=== PATIENT | male | born 1945 | race Caucasian/White ===

== ENCOUNTER 2016-06-16 08:36 | Inpatient (IN) ==
--- NOTE | 2016-06-16 09:00 | Emergency Department Note ---
Disposition Clinical Impression: PVC (premature ventricular contraction), Dizziness Arrhythmia Qualifiers: Arrhythmia type: ventricular tachycardia Qualified Code(s): I47.2 - Ventricular tachycardia Disposition: Admitted As Inpatient Condition: Fair [facility] Care Provider[facility] - Forms: ED Satisfaction Letter General Adult HPI - General Chief complaint: ED Syncope Stated complaint: arrhythmia, heart palpitations, near syncope Time Seen by Provider: 06/16/16 08:43 Source: patient, family Mode of arrival: ambulatory Limitations: no limitations Nursing Notes Reviewed: Yes Vital Signs Reviewed: Yes - History of Present Illness HPI Narrative: 70-year-old male history of A. fib, AICD, CABG present for evaluation for an arrhythmia. Patient states that he was evaluated at [facility] 2 days ago for similar symptoms and diagnosed with pneumonia. Patient had is pacemaker interrogated yesterday. This morning the patient became concerned because he felt flushed and that his pulse and noted a 10 second positive for a felt his heart rate. Patient denies any chest pain. Dizzy. But no passing out or syncope. No fevers or cough. Does note some dyspnea. No nausea or vomiting. Pain Scale: 0 - Related Data Home Medications Medication Instructions Recorded Confirmed Furosemide [Lasix] 40 mg PO BID #0 01/17/15 06/16/16 Potassium Chloride [K-Tab ER] 20 meq PO BID #0 01/17/15 06/16/16 Simvastatin [Zocor] 80 mg PO HS #0 01/17/15 06/16/16 Albuterol Sulfate [Albuterol 2 puff IH Q6HR PRN 01/18/15 06/16/16 Inhaler] Budesonide/Formoterol 160/4.5 2 puff IH BIDR 01/18/15 06/16/16 [Symbicort] Ipratropium/Albuterol Neb [Duoneb] 3 ml IH Q4H PRN 01/18/15 06/16/16 Spironolactone [Aldactone] 10 mg PO DAILY 01/18/15 06/16/16 Carvedilol [Coreg] 12.5 mg PO BID 06/07/16 06/16/16 Cholecalciferol (D-3) [Vitamin D] 1,000 unit PO BID 06/07/16 06/16/16 Pantoprazole Sodium 40 mg PO BID 06/07/16 06/16/16 Oxygen 2 l .ROUTE AD 06/16/16 06/16/16 Previous Rx's Medication Instructions Recorded Sotalol HCl [Betapace] 120 mg PO BID #60 tablet 10/29/15 Cephalexin [Keflex] 500 mg PO QID #40 capsule 06/14/16 Allergies Allergy/AdvReac Type Severity Reaction Status Date / Time codeine AdvReac Nausea Verified 06/16/16 08:42 All systems ED: reviewed and negative except as stated. Constitutional: Reports: as per HPI. Denies: fever Eyes: Reports: as per HPI ENT ED: Reports: as per HPI Cardiovascular: Reports: as per HPI, palpitations. Denies: chest pain Respiratory: Reports: as per HPI, dyspnea. Denies: cough Gastrointestinal: Reports: as per HPI. Denies: nausea, vomiting Genitourinary: Reports: as per HPI Musculoskeletal: Reports: as per HPI Integumentary: Reports: as per HPI Neurological: Reports: as per HPI Psychiatric: Reports: as per HPI Past Medical History - Past Medical History Medical history: Reports: cancer, cardiomyopathy, CHF, COPD, coronary artery disease, CVA, GERD, GI bleed, hypertension, myocardial infarction, TIA, valvular heart disease, other Surgical history: Reports: angioplasty/stent, coronary bypass (CABG), herniorrhaphy, pacemaker/AICD, other, AICD, pacemaker Psychiatric history: Reports: anxiety - Social History Smoking Status: Former smoker Smokeless Tobacco Status: No Alcohol use: Reports: rarely Drug use: Reports: none Physical Exam - General Limitations: no limitations General appearance: alert, in no apparent distress - Head Head exam: atraumatic, normocephalic, normal inspection - Eye Eye exam: Present: normal appearance, EOMI - ENT ENT exam: normal exam, mucous membranes moist - Neck Neck exam: Present: normal inspection, trachea midline - Chest Chest inspection: Present: normal inspection, symmetric chest wall rise - Respiratory Respiratory exam: Present: normal lung sounds bilaterally. Absent: respiratory distress - Cardiovascular Cardiovascular exam: Present: regular rate, normal rhythm - Abdominal Exam Abdominal exam: Present: soft, Non-Tender - Extremities Exam Extremities exam: Present: normal inspection. Absent: pedal edema - Back Exam Back exam: Present: normal inspection - Neurological Exam Neurological exam: Present: alert, oriented X3 - Skin Skin exam: Present: warm, dry, intact, normal color Course Course Narrative: Patient seen and examined. Chery in no acute distress. Patient's EKG shows stroke unifocal PVCs. Patient will get basic lab work, chest x-ray and discussion with cardiology. - Reevaluation(s) Reevaluation #1: Patient seen and examined. Patient noted that he felt of flushing feeling that spontaneously resolved. Similar to the feeling she has had in the past. Time: 10:46 - Consultations Consultation #1: Spoke with cardiology, who reviewed the recent interrogation. Recommended that since the patient is symptomatic with the with the arrhythmias and having more frequent runs of VT the patient would benefit from inpatient admission, possible echo, possible med adjustment. Time: 10:17 Vital Signs Temperature 97.8 F 06/16/16 08:42 Pulse Rate 74 06/16/16 08:42 Respiratory Rate 16 06/16/16 08:42 Blood Pressure 113/63 06/16/16 08:42 O2 Sat by Pulse Oximetry 99 06/16/16 08:42 Temperature 97.8 F 06/16/16 08:42 Pulse Rate 63 06/16/16 11:00 Respiratory Rate 15 06/16/16 11:00 Blood Pressure 105/60 06/16/16 11:00 O2 Sat by Pulse Oximetry 95 06/16/16 11:00 Oxygen Delivery Oxygen Delivery Nasal Cannula Medical Decision Making - [facility] Narrative Medical decision making narrative: 70-year-old male presents for evaluation of arrhythmia. Patient states that he felt really flushed and checked his heart rate and noted that he did not have a heart rate for approximately 10 seconds. Patient felt dizzy. Patient denies any other symptoms. No chest pain or short of breath. Patient does have AICD had it interrogated yesterday. Patient denies feeling any shocks report reviewed showed the patient had 6 of 6 paced terminated episodes. Patient had similar presentation at [facility] ago and was told he had pneumonia on antibiotics currently. Patient had EKG, lytes and troponin evaluated in the ER. Patient's chest x-ray shows no acute. Cardiology recommended inpatient admission for further evaluation monitoring. Possible echo. Possible medication adjustment. Patient was updated on plan of care. Patient is also family at bedside are aware. - Lab Data Lab results reviewed: Yes I reviewed the patient's lab results. Result diagrams: 06/16/16 09:10 06/16/16 09:10 Lab Results 06/16/16 06/16/16 06/16/16 Range/Units 09:10 09:10 09:10 WBC 7.4 (4.3-11.1) K/mcL RBC 3.85 L (4.19-5.50) M/mcL Hgb 12.0 L (12.9-16.9) g/dL Hct 36.4 L (37.5-50.1) % MCV 94.5 (83.0-100.0) fL MCH 31.2 (28.0-33.3) pg MCHC 33.0 (31.6-35.5) g/dL RDW 14.4 (11.5-14.5) % Plt Count 195 (140-400) K/mcL MPV 9.5 (9.4-12.4) fL Immature Gran % 0.4 (0-4) % Seg Neutrophils % 83.2 % Lymphocytes % 9.5 % Monocytes % 4.7 % Eosinophils % 1.7 % Basophils % 0.5 % Neutrophils # 6.2 (1.6-8.9) K/mcL Lymphocytes # 0.7 (0.6-4.6) K/mcL Monocytes # 0.4 (0.0-1.3) K/mcL Eosinophils # 0.1 (0.0-0.6) K/mcL Basophils # 0.0 (0.0-0.2) K/mcL Sodium 139 (136-145) mEq/L Potassium 3.4 L (3.5-4.5) mEq/L Chloride 98 (98-109) mEq/L Carbon Dioxide 36 H (19-29) mEq/L BUN 12 (8-26) mg/dL Creatinine 0.95 (0.72-1.25) mg/dL Est GFR ( Amer) > 60 (> 60) Est GFR (Non-Af Amer) > 60 (> 60) BUN/Creatinine Ratio 13 (6-26) Glucose 124 H (70-99) mg/dL Calculated Osmolality 289 (280-300) Calcium 10.0 (8.6-10.8) mg/dL Phosphorus 3.1 (2.3-4.7) mg/dL Magnesium 2.2 (1.6-2.6) mg/dL Total Bilirubin 0.9 (0.2-1.2) mg/dL AST 15 (5-34) Units/L ALT 7 (0-55) Units/L Alkaline Phosphatase 58 (38-126) Units/L Troponin I 0.01 (0-0.03) ng/mL Serum Total Protein 7.1 (6.0-8.3) g/dL Albumin 3.7 (3.5-5.0) g/dL Globulin 3.4 (2.4-3.5) g/dL Albumin/Globulin Ratio 1.1 (1.1-2.2) TSH 0.838 (0.350-4.840) mcIU/mL Free T4 1.07 (0.70-1.48) ng/dl - Radiology Data Radiology results reviewed: Yes I reviewed the patient's radiology results. Chest X-Ray 06/16/16 08:56 IMPRESSION: Stable chest examination. No focal consolidation. D/ / Emelina Zuniga MD / Emelina Zuniga MD Interpreting Provider: Emelina Zuniga MD - EKG Data EKG #1 EKG results narrative: Electronic ventricular pacemaker Rate: normal [place]/QRS: normal Ectopy: PVC (6) Interpretation: no acute changes, nonspecific ST-T wave changes S.B.A.R. - S.B.A.R. Situation: Demographics Background: Presenting Complaint Assessment: Vital Signs, Course and respsone to treatment, Patient/Family Expectation, Pertinant Lab Results Recommendation: Barrier(s) to disposition, Recommendation based on pending studies, treatments, or consults S.B.A.R. Report Given to: Dr. Lunsford SBrittonBBrittonABrittonRBritton Repor Time: 10:46 Attestation Statement - Attestation Attestation: I examined this patient and my medical decision-making was reviewed with the RENAL DIALYSIS TECHNICIAN/PA/Advanced Practice Nurse/Resident Physician. I agree with the documented findings, disposition and treatment plan as described except to the extent set forth below. Patient emergency department after a near syncopal episode. Patient states he feels like his pulses stopping. He had his pacemaker interrogated yesterday that showed some runs of V. fib and V. tach. On examination he does not appear to be in acute distress. Heart regular rate and rhythm lungs are clear. Plan. EKG shows a paced rhythm with every other QRS complex being a PVC. Labs unremarkable. He was discussed with cardiology is recommending admission for med management and symptom control.
[2016-06-16 09:17] LABS: Basophils % 0.5 %; Eosinophils # 0.1 K/mcL (0.0-0.6); Eosinophils % 1.7 %; Hematocrit 36.4 % (37.5-50.1); Immature Granulocytes % 0.4 % (0-4); Lymphocytes # 0.7 K/mcL (0.6-4.6); Lymphocytes % 9.5 %; Mean Corpuscular Hemoglobin 31.2 pg (28.0-33.3); Mean Corpuscular Volume 94.5 fL (83.0-100.0); Mean Platelet Volume 9.5 fL (9.4-12.4); Monocytes # 0.4 K/mcL (0.0-1.3); Monocytes % 4.7 %; Neutrophils # 6.2 K/mcL (1.6-8.9); Platelet Count 195 K/mcL (140-400); Red Blood Count 3.85 M/mcL (4.19-5.50); Red Cell Distribution Width 14.4 % (11.5-14.5); Segmented Neutrophils % 83.2 %
[2016-06-16 09:35] LABS: Alanine Aminotransferase 7 Units/L (0-55); Albumin 3.7 g/dL (3.5-5.0); Albumin/Globulin Ratio 1.1 (1.1-2.2); Alkaline Phosphatase 58 Units/L (38-126); Aspartate Amino Transferase 15 Units/L (5-34); BUN/Creatinine Ratio 13 (6-26); Bilirubin,Total 0.9 mg/dL (0.2-1.2); Blood Urea Nitrogen 12 mg/dL (8-26); Carbon Dioxide 36 mEq/L (19-29); Chloride 98 mEq/L (98-109); Globulin 3.4 g/dL (2.4-3.5); Glucose 124 mg/dL (70-99); Magnesium 2.2 mg/dL (1.6-2.6); Osmolality,Calculated 289 (280-300); Phosphorous 3.1 mg/dL (2.3-4.7); Potassium 3.4 mEq/L (3.5-4.5); Sodium 139 mEq/L (136-145); Total Protein 7.1 g/dL (6.0-8.3); eGFR For African Americans > 60 (> 60); eGFR For Non-African Americans > 60 (> 60)
[2016-06-16] MEDS ORDERED: Naloxone 0.4 MG/ML INJ IVP PRN (10:45)
[2016-06-16] MEDS ORDERED: Acetaminophen 325 MG TABLET PO PRN (10:45)
--- NOTE | 2016-06-16 11:23 | Internal Med History&Physical ---
Date of Encounter: 06/16/16 Time of Encounter: 11:00 Assessment and Plan (1) Pre-syncope Current visit: Yes Status: Acute Patient with episodes of presyncope. Has a AICD in place which was interrogated yesterday showing episodes of nonsustained V. tach. Cardiology has been consulted. Recommend observing the patient and adjusting medications in the hospital. We will monitor with telemetry. Replace electrolyte abnormalities. Trend troponins. High risk for complications. (2) Arrhythmia Current visit: Yes Status: Acute Monitor with telemetry. Consult cardiology. Qualifiers: Arrhythmia type: ventricular tachycardia Qualified Code(s): I47.2 - Ventricular tachycardia (3) Coronary artery disease Current visit: Yes Status: Chronic No chest pain. Continue home medications for this condition. Qualifiers: Coronary Disease-Associated Artery/Lesion type: bypass graft [place] vs. transplanted heart: [place] heart Associated angina: without angina Qualified Code(s): I25.810 - Atherosclerosis of coronary artery bypass graft(s) without angina pectoris (4) Hypokalemia Current visit: Yes Status: Acute Will replace. (5) Ischemic cardiomyopathy Current visit: Yes Status: Chronic Status post AICD. Consult cardiology. No acute congestive heart failure at this time. (6) NSVT (nonsustained ventricular tachycardia) Current visit: Yes Status: Acute (7) Pneumonia Current visit: No Status: Ruled-out Patient is chest x-ray does not show any infiltrate. Very likely the findings on his previous x-ray were artifacts. Will complete keflex course for possible bronchitis Qualifiers: Qualified Code(s): J18.9 - Pneumonia, unspecified organism Internal Medicine - H&P: HPI Chief complaint: Dizziness, arrhythmia Admitted From: Emergency Dept Plans for Post Hospital Care: Home History of present illness: Mr. Latif is a 70 year old male patient with a history of coronary artery disease, ischemic cardiomyopathy, systolic congestive heart failure with pacemaker and AICD in situ presented to the ER with complaints of presyncope, dizziness and lightheadedness that has been ongoing for the past 2-3 days. He was seen in the ER at different facility the day before yesterday and was monitored with telemetry and as he did not show any abnormalities, and he underwent AICD interrogation yesterday. He however continued to have symptoms intermittently and this morning he decided to come to our ER. He denies any chest pain. He was diagnosed with possible pneumonia during that visit and started on antibiotic for it. He has been taking the antibiotic prescribed accordingly. He denies any fever or chills. He does have some cough. No sputum production. He denies any syncopal episode. Past Med Surg Social Fam HX - Past Medical History Attestation: Yes The following information was validated with the patient. Source: patient Medical history: cancer, cardiomyopathy, CHF, COPD, coronary artery disease, CVA , GERD, GI bleed, hypertension, myocardial infarction, TIA, valvular heart disease, other Psychiatric history: anxiety - Past Surgical History Surgical History: angioplasty/stent, coronary bypass (CABG), herniorrhaphy, pacemaker/AICD, other, AICD, pacemaker - Social History Smoking Status: Former smoker Smokeless Tobacco Status: No Alcohol use: rarely Drug use: none - Family History Father Adopted: No Family Member Ethnicity: Non- Living Status: Hx Family Cardiac Disorders: No Hx Family Respiratory Disorders: Yes (Emphysema) Hx Family Cancer: No Hx Family GI Disorders: No Hx Family Endocrine Disorder: No Hx Family Neuromuscular Disorders: No Hx Family Neurologic Disorders: No Hx Family HEENT Disorders: No Hx Family Autoimmune Disorders: No Mother Adopted: No Family Member Ethnicity: Non- Living Status: Hx Family Cardiac Disorders: No Hx Family Respiratory Disorders: Yes (Emphysema) Hx Family Cancer: Yes (Lung) Hx Family GI Disorders: No Hx Family Endocrine Disorder: No Hx Family Neuromuscular Disorders: No Hx Family Neurologic Disorders: No Hx Family HEENT Disorders: No Hx Family Autoimmune Disorders: No Internal Medicine - H&P: Meds Furosemide [Lasix] 40 mg PO BID #0 01/17/15 [History] Potassium Chloride [K-Tab ER] 20 meq PO BID #0 01/17/15 [History] Simvastatin [Zocor] 80 mg PO HS #0 01/17/15 [History] Albuterol Sulfate [Albuterol Inhaler] 2 puff IH Q6HR PRN 01/18/15 [History] Budesonide/Formoterol 160/4.5 [Symbicort] 2 puff IH BIDR 01/18/15 [History] Ipratropium/Albuterol Neb [Duoneb] 3 ml IH Q4H PRN 01/18/15 [History] Spironolactone [Aldactone] 10 mg PO DAILY 11/28/15 [History] Sotalol HCl [Betapace] 120 mg PO BID #60 tablet 10/29/15 [Rx] Carvedilol [Coreg] 12.5 mg PO BID 06/07/16 [History] Cholecalciferol (D-3) [Vitamin D] 1,000 unit PO BID 06/07/16 [History] Pantoprazole Sodium 40 mg PO BID 06/07/16 [History] Cephalexin [Keflex] 500 mg PO QID #40 capsule 06/14/16 [Rx] Oxygen 2 l .ROUTE AD 06/16/16 [History] Allergies codeine Adverse Reaction (Verified 06/16/16 08:42) Nausea All Systems PM: A 10-system review of systems was performed and is negative for pertinent findings except as documented above in the HPI. - Constitutional Constitutional: no chills, no fever(s), no night sweats - EENT Eyes: no change in vision, no discharge, no pain, no photophobia Ears: no ear discharge, no ear pain, no tinnitus Nose, mouth and throat: no dysphagia, no nasal discharge, no neck pain, no sore throat - Cardiovascular Cardiovascular ROS IM: lightheadedness, no chest pain, no diaphoresis, no dyspnea, no syncope - Respiratory Respiratory: no cough, no dyspnea, no wheezing, no excessive phlegm production - Gastrointestinal Gastrointestinal: no abdominal pain, no diarrhea, no hematemesis, no hematochezia, no melena, no nausea, no vomiting - Musculoskeletal Musculoskeletal ROS IM: no numbness, no tingling - Integumentary Integumentary IM: no rash, no unusual bruising - Neurological Neurological ROS: dizziness, no confusion, no convulsions, no focal weakness, no numbness, no tingling, no tremor(s) - Hematologic/Lymphatic Hematologic/Lymphatic: no easy bruising - Constitutional Vitals: Temp Pulse Resp BP Pulse Ox 97.8 F 63 15 105/60 95 06/16/16 08:42 06/16/16 11:00 06/16/16 11:00 06/16/16 11:00 06/16/16 11:00 General appearance: Present: cooperative, mild distress, A&O X 3, pleasant, answers questions appropriately - Eye Eye exam: Present: EOMI, PERRL, conjuntiva pink, sclera anicteric - Neck Neck exam general surgery: Present: supple, trachea midline. Absent: lymphadenopathy - Respiratory Respiratory exam: Present: CTAB. Absent: accessory muscle use, rales, rhonchi, wheezes - Cardiovascular Cardiovascular exam: Present: RRR, +S1, +S2. Absent: diastolic murmur, gallop, rubs, systolic murmur - GI/Abdominal GI/Abdominal exam: Present: normal bowel sounds, soft, no peritoneal signs. Absent: distended, tenderness - Extremities Exam Extremities exam: Present: warm, radial pulses palpable and symetrical. Absent : calf tenderness, cyanotic, pedal edema - Neurological Exam Neurological exam: Present: CN II-XII intact, oriented X3, no focal deficits. Absent: facial droop, speech deficit - Skin Skin exam: Present: dry, intact Internal Med - H&P Results - Labs CBC & Chem 7: 06/16/16 09:10 06/16/16 09:10 Labs: Short CBC 06/16/16 Range/Units 09:10 WBC 7.4 (4.3-11.1) K/mcL Hgb 12.0 L (12.9-16.9) g/dL Hct 36.4 L (37.5-50.1) % Plt Count 195 (140-400) K/mcL Neutrophils # 6.2 (1.6-8.9) K/mcL BMP 06/16/16 09:10 Sodium 139 Potassium 3.4 L Chloride 98 Carbon Dioxide 36 H BUN 12 Creatinine 0.95 Glucose 124 H Calcium 10.0 Cardiac Enzymes 06/16/16 Range/Units 09:10 Troponin I 0.01 (0-0.03) ng/mL Liver Function 06/16/16 Range/Units 09:10 Total Bilirubin 0.9 (0.2-1.2) mg/dL AST 15 (5-34) Units/L ALT 7 (0-55) Units/L Alkaline Phosphatase 58 (38-126) Units/L Albumin 3.7 (3.5-5.0) g/dL - EKG Data -: EKG Interpreted by Myself - EKG Data EKG comments: 06/16/16 11:23 V Paced rhythm and frequent PVCs - Impressions ITS Impressions Chest X-Ray 06/16/16 08:56 IMPRESSION: Stable chest examination. No focal consolidation. D/ / Emelina Zuniga MD / Emelina Zuniga MD Interpreting Provider: Emelina Zuniga MD - Attending Attestation This document has been at least partially created by [employer]ile System recognition technology by Dr. Lunsford. Errors in grammar, wording or other phrases may exist. If errors are found after the documentation is signed, they will be addressed individually in the addendum section of this document when appropriate.
[2016-06-16 11:28] LABS: Thyroid Stimulating Hormone 0.838 mcIU/mL (0.350-4.840)
[2016-06-16] MEDS: cephALEXin 500 MG CAPSULE PO SCH ×3 (14:57→20:58)
--- NOTE | 2016-06-16 15:52 | Cardiology Consult Note ---
Date of Encounter: 06/16/16 Time of Encounter: 15:30 Assessment and Plan (1) NSVT (nonsustained ventricular tachycardia) Current Visit: Yes Status: Acute Repeat device check shows 11 episodes of NSVT up to 30 seconds. Episodes of VT not long enough to require shock. Device check on 06/15/16 shoed 4 episodes of vfib and 2 episodes of VT treated with ATP since February. K 3.4 on admission. Give another 20 meq. Reports running out of potassium supplement recently. Poor oral intake d/t difficulty swallowing. Keep potassium above 4.0 and magnesium above 2.0. SAM completed for valvular heart disease 03/19/16-EF 40%, global hypokenesis with regional variations. Normal RV size and function, linear echo density in consistent with pacer lead seen in right atrium. severely dilated LA. Anterior mitral valve leaflet mildly thickened. Restricted motion of posterior mitral valve leaflet. Mod-severe MR, which is eccentric. Mild TR. There is a small PFO. (2) ICD (implantable cardioverter-defibrillator) in place Current Visit: Yes Status: Acute ICD in place for ischemic cardiomyopathy. (3) Coronary artery disease Current Visit: Yes Status: Chronic H/o CABG in 2001. Denies chest pain. Continue asa, statin, and bb. Last [facility] 02/22/13- 05/25 patent bypass grafts. Severe three vessel [place] CAD. Qualifiers: Coronary Disease-Associated Artery/Lesion type: bypass graft [place] vs. transplanted heart: [place] heart Associated angina: without angina Qualified Code(s): I25.810 - Atherosclerosis of coronary artery bypass graft(s) without angina pectoris (4) Ischemic cardiomyopathy Current Visit: Yes Status: Chronic Last SAM 02/2016 showed EF 40%. Currently euvolemic. Noted that optivl fluid accumulation per ICD report. CXR shows no acute finding. Continue carvedilol. No zayra-inhibitor d/t hypotension. Continue maintenance lasix and spironlactone. (5) Mitral regurgitation Current Visit: Yes Status: Acute Known moderate to severe MR. Last evaluated on SAM 02/2016. Continue to monitor. Qualifiers: Cardiac valve disease etiology: etiology unspecified Qualified Code(s): I34.0 - Nonrheumatic mitral (valve) insufficiency Discussion w patient/family: The assessment and plan as outlined above was discussed with the patient and/or family members who expressed understanding and agreement. All questions were answered. Thank you for involving us in the care of your patient. Please call with any questions. History of Present Illness Consult date: 06/16/16 Requesting physician: Vianey Lunsford Consult reason: palpitations, PVC Chief complaint: dizziness, palpitations History of present illness: Mr. Latif is a 70 year old male with a history of CABG in 2001, ischemic cardiomyoapthy, ICD, and newly diagnosed gastroesophogeal cancer who presented with the c/o dizziness and palpitations. His symptoms initially started after he bent over to pecan picker something out of a cabinet and he stood back up. He started to walk and became very dizzy. When he sat down he felt warm all over. He reports checking his pulse with a pulse ox that showed no pulse. He went to [place] [facility] and no concerning findings were seen on his EKG or telemetry. He says he was treated for pneumonia. He also had a device check the next day that showed arrhythmias around the time of his symptoms. D/t recurrent symptoms he decided to come to the ER in [place]. He has a history of being shocked multiple times. Denies recent ICD shock. Office device check showed ATP therapy for 13 second vfib and VT on 06/14/16. There were 4 episodes of vfib and 2 episodes of VT treated with ATP since 02/2016. Optivol on since April 2016. Recent cardiac testing: SAM completed for valvular heart disease 03/19/16-EF 40%, global hypokenesis with regional variations. Normal RV size and function, linear echo density in consistent with pacer lead seen in right atrium. severely dilated LA. Anterior mitral valve leaflet mildly thickened. Restricted motion of posterior mitral valve leaflet. Mod-severe MR, which is eccentric. Mild TR. There is a small PFO. Past Med Surg Social Fam HX - Past Medical History Medical history: cancer, cardiomyopathy, CHF, COPD, coronary artery disease, CVA , GERD, GI bleed, hypertension, myocardial infarction, TIA, valvular heart disease, other Psychiatric history: no psych history - Past Surgical History Surgical History: angioplasty/stent, coronary bypass (CABG), herniorrhaphy, pacemaker/AICD, other, AICD, pacemaker - Social History Smoking Status: Former smoker Smokeless Tobacco Status: No Alcohol use: rarely Drug use: none - Family History Father Adopted: No Family Member Ethnicity: Non- Living Status: Hx Family Cardiac Disorders: No Hx Family Respiratory Disorders: Yes (Emphysema) Hx Family Cancer: No Hx Family GI Disorders: No Hx Family Endocrine Disorder: No Hx Family Neuromuscular Disorders: No Hx Family Neurologic Disorders: No Hx Family HEENT Disorders: No Hx Family Autoimmune Disorders: No Mother Adopted: No Family Member Ethnicity: Non- Living Status: Hx Family Cardiac Disorders: No Hx Family Respiratory Disorders: Yes (Emphysema) Hx Family Cancer: Yes (Lung) Hx Family GI Disorders: No Hx Family Endocrine Disorder: No Hx Family Neuromuscular Disorders: No Hx Family Neurologic Disorders: No Hx Family HEENT Disorders: No Hx Family Autoimmune Disorders: No Medications and Allergies Furosemide [Lasix] 40 mg PO BID #0 01/17/15 [History] Potassium Chloride [K-Tab ER] 20 meq PO BID #0 01/17/15 [History] Simvastatin [Zocor] 80 mg PO HS #0 01/17/15 [History] Albuterol Sulfate [Albuterol Inhaler] 2 puff IH Q6HR PRN 01/18/15 [History] Budesonide/Formoterol 160/4.5 [Symbicort] 2 puff IH BIDR 01/18/15 [History] Ipratropium/Albuterol Neb [Duoneb] 3 ml IH Q4H PRN 01/18/15 [History] Spironolactone [Aldactone] 10 mg PO DAILY 01/18/15 [History] Sotalol HCl [Betapace] 120 mg PO BID #60 tablet 10/29/15 [Rx] Carvedilol [Coreg] 12.5 mg PO BID 06/07/16 [History] Cholecalciferol (D-3) [Vitamin D] 1,000 unit PO BID 06/07/16 [History] Pantoprazole Sodium 40 mg PO BID 06/07/16 [History] Cephalexin [Keflex] 500 mg PO QID #40 capsule 06/14/16 [Rx] Oxygen 2 l .ROUTE AD 06/16/16 [History] Allergies codeine Adverse Reaction (Verified 06/16/16 08:42) Nausea All Systems Review: A 10-system review of systems was performed and is negative for pertinent findings except as documented above in the HPI. Physical Examination Vital Signs, Last 4 Hours Temp Pulse Resp BP Pulse Ox 06/16/16 15:23 97.6 F 78 16 97/61 96 06/16/16 14:22 95 06/16/16 14:02 97.8 F 71 16 91/72 95 06/16/16 13:49 16 96/62 06/16/16 13:20 64 22 96/69 96 General: Conversant, No Apparent Distress, Other (frail elderly male) HEENT: Atraumatic, Normocephaly, Mucus Membranes Moist Neck: No JVD, Normal carotid pulses Cardiac: Reg Rate and Rhythm, Normal S1 and S2, No Murmur, Other (ICD left upper chest) Lungs: Normal Breath Sounds, No Wheeze, Rales, Rhonchi Neuro: Alert and responsive, No focal deficits noted Abdomen: Soft, Non-Tender Skin: No rashes noted on visualized skin Musculoskeletal: No Chest Wall Tenderness Extremities: No Clubbing, No Cyanosis, No Edema, Normal Pulses Results 06/16/16 09:10 06/16/16 09:10 - Imaging and Cardiology Echo: report reviewed - EKG Interpretation EKG results cardiology: other Consult Discharge Plan - Plan [facility]errals: [facility] [Primary Care Provider] -
[2016-06-16] MEDS: *HR* Heparin 5,000 UNIT/ML VIAL SQ SCH (18:05)
--- NOTE | 2016-06-16 18:42 | Electrocardiograph Report ---
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
[2016-06-16] MEDS: Furosemide 40 MG TABLET PO SCH (20:58)
[2016-06-16] MEDS: Budesonide/Formoterol 160/4.5 MDI IH SCH (22:37)
[2016-06-16] MEDS: Ipratropium/Albuterol Neb 3 ML IH PRN (22:40)
[2016-06-17 05:01] LABS: Basophils % 0.4 %; Eosinophils # 0.1 K/mcL (0.0-0.6); Eosinophils % 1.6 %; Hematocrit 31.6 % (37.5-50.1); Hemoglobin 10.5 g/dL (12.9-16.9); Immature Granulocytes % 0.3 % (0-4); Lymphocytes # 1.1 K/mcL (0.6-4.6); Lymphocytes % 15.9 %; Mean Corpuscular HGB Conc 33.2 g/dL (31.6-35.5); Mean Corpuscular Hemoglobin 31.3 pg (28.0-33.3); Mean Platelet Volume 9.8 fL (9.4-12.4); Monocytes # 0.5 K/mcL (0.0-1.3); Monocytes % 7.6 %; Neutrophils # 5.1 K/mcL (1.6-8.9); Platelet Count 183 K/mcL (140-400); Red Blood Count 3.36 M/mcL (4.19-5.50); Red Cell Distribution Width 14.4 % (11.5-14.5); Segmented Neutrophils % 74.2 %
[2016-06-17 05:23] LABS: BUN/Creatinine Ratio 16 (6-26); Blood Urea Nitrogen 12 mg/dL (8-26); Calcium 8.8 mg/dL (8.6-10.8); Carbon Dioxide 31 mEq/L (19-29); Chloride 101 mEq/L (98-109); Glucose 93 mg/dL (70-99); Osmolality,Calculated 289 (280-300); Sodium 140 mEq/L (136-145); eGFR For African Americans > 60 (> 60); eGFR For Non-African Americans > 60 (> 60)
[2016-06-17] MEDS: *HR* Heparin 5,000 UNIT/ML VIAL SQ SCH ×2 (05:40→17:15)
[2016-06-17] MEDS: Budesonide/Formoterol 160/4.5 MDI IH SCH ×2 (08:10→20:00)
[2016-06-17] MEDS: Ipratropium/Albuterol Neb 3 ML IH PRN ×2 (08:10→20:00)
[2016-06-17] MEDS: cephALEXin 500 MG CAPSULE PO SCH ×4 (08:30→20:14)
[2016-06-17] MEDS: Cholecalciferol (D-3) 1,000 UNIT TABLET PO SCH (08:30)
[2016-06-17] MEDS: Furosemide 40 MG TABLET PO SCH ×2 (08:30→20:12)
[2016-06-17] MEDS ORDERED: Spironolactone 25 MG TABLET PO SCH (09:00)
--- NOTE | 2016-06-17 10:25 | Cardiology Progress Note ---
Date of Encounter: 06/17/16 Time of Encounter: 10:22 Assessment and Plan (1) NSVT (nonsustained ventricular tachycardia) Current Visit: Yes Status: Acute Repeat device check shows 11 episodes of NSVT up to 30 seconds. Episodes of VT not long enough to require shock. Device check on 06/15/16 shoed 4 episodes of vfib and 2 episodes of VT treated with ATP since February. K 3.4 on admission. Replaced. 4.0 today Reports running out of potassium supplement recently. Poor oral intake d/t difficulty swallowing. Keep potassium above 4.0 and magnesium above 2.0. SAM completed for valvular heart disease 03/19/16-EF 40%, global hypokenesis with regional variations. Normal RV size and function, severely dilated LA. Mod- severe MR, which is eccentric. Mild TR. There is a small PFO. Rechecking echo. Increased Sotalol to 160mg BID. Has received 2 doses. EKG ordered to check this AM. Pt denies complaints. Hypotensive this AM, but asymptomatic. Will continue to monitor/adjust meds as necessary. Telemetry shows few episodes of NSVT, longest 12 beats. Recommend continuing to monitor another night with Sotalol increase. Will continue to follow. (2) ICD (implantable cardioverter-defibrillator) in place Current Visit: Yes Status: Acute ICD in place for ischemic cardiomyopathy. (3) Mitral regurgitation Current Visit: Yes Status: Acute Known moderate to severe MR. Last evaluated on SAM 02/2016. Continue to monitor. Qualifiers: Cardiac valve disease etiology: etiology unspecified Qualified Code(s): I34.0 - Nonrheumatic mitral (valve) insufficiency (4) Coronary artery disease Current Visit: Yes Status: Chronic H/o CABG in 2001. Denies chest pain. Continue asa, statin, and bb. Last [facility] 02/22/13- 05/25 patent bypass grafts. Severe three vessel [place] CAD. Qualifiers: Coronary Disease-Associated Artery/Lesion type: bypass graft [place] vs. transplanted heart: [place] heart Associated angina: without angina Qualified Code(s): I25.810 - Atherosclerosis of coronary artery bypass graft(s) without angina pectoris (5) Ischemic cardiomyopathy Current Visit: Yes Status: Chronic Last SAM 02/2016 showed EF 40%. Currently euvolemic. Noted that optivl fluid accumulation per ICD report. CXR shows no acute finding. Continue carvedilol. No zayra-inhibitor d/t hypotension. Continue maintenance lasix and spironlactone. Discussion w patient/family: The assessment and plan as outlined above was discussed with the patient and/or family members who expressed understanding and agreement. All questions were answered. Thank you for involving us in the care of your patient. Please call with any questions. I will discuss all the above with Dr. Garcia and make changes as necessary. Subjective Principal diagnosis: VT Interval history: Pt denies any acute complaints this AM. Sotalol increased to 160mg BID. EKG not yet completed this AM. Telemetry reviewed--longest NSVT 12 beats. Objective Vital Signs, Last 4 Hours Temp Pulse Resp BP Pulse Ox 06/17/16 08:34 95 06/17/16 08:12 16 97 06/17/16 06:44 97.7 F 70 18 82/56 97 Vital Signs Temp Pulse Resp BP Pulse Ox 06/17/16 08:34 95 06/17/16 08:12 16 97 06/17/16 06:44 97.7 F 70 18 82/56 97 06/17/16 04:32 98.3 F 69 15 82/56 96 06/16/16 23:40 69 16 102/59 95 06/16/16 22:40 16 95 06/16/16 21:21 96 06/16/16 20:35 98.1 F 76 18 96/69 96 06/16/16 15:23 97.6 F 78 16 97/61 96 06/16/16 14:22 95 06/16/16 14:02 97.8 F 71 16 91/72 95 06/16/16 13:49 16 96/62 06/16/16 13:20 64 22 96/69 96 06/16/16 11:00 63 15 105/60 95 06/16/16 10:27 63 22 105/60 97 General: Conversant, No Apparent Distress HEENT: Atraumatic, Normocephaly, Mucus Membranes Moist Neck: No JVD, Normal carotid pulses Cardiac: Reg Rate and Rhythm, Normal S1 and S2, No Murmur Lungs: Normal Breath Sounds, No Wheeze, Rales, Rhonchi Neuro: Alert and responsive, No focal deficits noted Abdomen: Soft, Non-Tender Skin: No rashes noted on visualized skin Musculoskeletal: No Chest Wall Tenderness Extremities: No Clubbing, No Cyanosis, No Edema, Normal Pulses Results 06/17/16 04:34 06/17/16 04:34 Lab Results 06/17/16 06/17/16 04:34 04:34 WBC 6.8 Hgb 10.5 L D Hct 31.6 L Plt Count 183 Sodium 140 Potassium 4.0 Chloride 101 Carbon Dioxide 31 H BUN 12 Creatinine 0.74 Glucose 93 Calcium 8.8 Short CBC 06/17/16 Range/Units 04:34 WBC 6.8 (4.3-11.1) K/mcL Hgb 10.5 L D (12.9-16.9) g/dL Hct 31.6 L (37.5-50.1) % Plt Count 183 (140-400) K/mcL Neutrophils # 5.1 (1.6-8.9) K/mcL BMP 06/17/16 06/16/16 Range/Units 04:34 09:10 Sodium 140 139 (136-145) mEq/L Potassium 4.0 3.4 L (3.5-4.5) mEq/L Chloride 101 98 (98-109) mEq/L Carbon Dioxide 31 H 36 H (19-29) mEq/L BUN 12 12 (8-26) mg/dL Creatinine 0.74 0.95 (0.72-1.25) mg/dL Glucose 93 124 H (70-99) mg/dL Calcium 8.8 10.0 (8.6-10.8) mg/dL Liver Function 06/16/16 Range/Units 09:10 Total Bilirubin 0.9 (0.2-1.2) mg/dL AST 15 (5-34) Units/L ALT 7 (0-55) Units/L Alkaline Phosphatase 58 (38-126) Units/L Albumin 3.7 (3.5-5.0) g/dL Active Medications Acetaminophen (Tylenol) 650 mg PO Q6HR PRN PRN Reason: Mild Pain (1-3) Stop: 12/16/16 10:46 Albuterol Sulfate (Albuterol Inhaler) 2 puff IH Q6HR PRN PRN Reason: Shortness Of Breath Stop: 12/16/16 11:57 Albuterol/Ipratropium (Duoneb) 3 ml IH [id number] PRN; Protocol PRN Reason: Shortness Of Breath/Wheezing Stop: 12/16/16 11:57 Last Admin: 06/17/16 08:10 Dose: 3 ml Budesonide/Formoterol Fumarate (Symbicort) 2 puff IH BIDR JULIETTE PRN Reason: Protocol Stop: 12/16/16 22:01 Last Admin: 06/17/16 08:10 Dose: 2 puff Carvedilol (Coreg) 12.5 mg PO BID JULIETTE PRN Reason: Protocol Stop: 12/16/16 21:01 Last Admin: 06/17/16 08:32 Dose: 12.5 mg Cephalexin HCl (Keflex) 500 mg PO QID JULIETTE Stop: 12/16/16 13:01 Last Admin: 06/17/16 08:30 Dose: 500 mg Furosemide (Lasix) 40 mg PO BID [facility] Stop: 12/16/16 21:01 Last Admin: 06/17/16 08:30 Dose: 40 mg Heparin Sodium (Porcine) (Heparin) 5,000 unit SQ Q12HR JULIETTE Stop: 12/16/16 18:01 Last Admin: 06/17/16 05:40 Dose: 5,000 unit Naloxone HCl (Narcan) 0.4 mg IVP Q2MIN PRN PRN Reason: Opioid Reversal Stop: 12/16/16 10:46 Potassium Chloride (Potassium Chloride) 20 meq PO BID [facility] Stop: 12/16/16 21:01 Last Admin: 06/17/16 08:31 Dose: 20 meq Simvastatin (Zocor) 80 mg PO HS JULIETTE Stop: 12/16/16 21:01 Last Admin: 06/16/16 20:58 Dose: 80 mg Sotalol HCl (Betapace) 160 mg PO BID JULIETTE Stop: 12/16/16 21:01 Last Admin: 06/17/16 08:30 Dose: 160 mg Spironolactone (Aldactone) 10 mg PO DAILY JULIETTE Stop: 12/17/16 09:01 Last Admin: 06/17/16 08:31 Dose: 10 mg Vitamin D (Vitamin D) 1,000 unit PO DAILY [facility] Stop: 12/17/16 09:01 Last Admin: 06/17/16 08:30 Dose: 1,000 unit - Imaging and Cardiology Echo: pending - EKG Interpretation EKG results cardiology: other (24 hour tele AVG HR 70, 12 beat run NSVT longest. ) Consult Discharge Plan - Plan [facility]errals: [facility] [Primary Care Provider] -
--- NOTE | 2016-06-17 16:35 | ECHO - Doppler Report ---
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 Global LV systolic dysfunction. Mildly dilated left ventricle. Indeterminate diastolic function. RV size appears normal with low normal function. Restricted posterior mitral valve leaflet with mild to moderate eccentric MR that may be underestimated. Mild-moderate tricuspid regurgitation. Mild pulmonary hypertension. A linear echodensity consistent with a pacer lead was seen in the right atrium and right ventricle. Left Ventricular Wall Motion: Rest Echo Findings The apex, apical inferior, mid inferior, basal inferior, apical anterior, mid anterior, basal anterior, apical septal, mid inferior septal, basal inferior septal, apical lateral, mid anterior lateral, basal anterior lateral, mid anterior septal, mid inferior lateral, basal anterior septal and basal inferior lateral bruno were hypokinetic. Findings: Study Quality * Technically adequate exam. ECG Findings * Normal sinus rhythm. Consider underlying V paced rhythm. Left Ventricle * Mildly dilated left ventricle. * Indeterminate diastolic function. * LVEF 40%. Aorta * Normally sized aortic root. Mitral Valve * There is restricted motion of the PMVL with mild to moderate MR that may be underestimated. * No mitral stenosis. Aortic Valve * No aortic regurgitation. * Trileaflet aortic valve. * No aortic stenosis. * Suboptimal Doppler interrogation. Tricuspid Valve * Normal tricuspid valve structure. * Mild-moderate tricuspid regurgitation. * Estimated RA pressure is 3 mmHg. * Estimated RVSP is 45 mmHg. * Mild pulmonary hypertension. Pulmonic Valve * Normal pulmonic valve structure. * No pulmonic stenosis. * No pulmonic regurgitation. Pulmonary Artery * Pulmonary artery not well visualized. Left Atrium * Severely dilated left atrium. Right Atrium * Moderately dilated right atrium. Interatrial Septum * Interatrial septum not well evaluated. Pericardium * There is no pericardial effusion present. IVC * Normal IVC dimensions and inspiratory collapse. Right Ventricle * RV is foreshortened in the apical views but appears normal in size. Function appears low normal in the parasternal views. It is not well seen in the subcostal view. Suboptimal TD velocity. Device lead * A device lead was visualized in the right atrium and right ventricle. History Hypertension Family History of CAD History of CAD/PTCA Coronary Artery Bypass Graft Pacer/ICD Implant 03/09/2016 a Previous Echo was performed. Measurements: BP: 102/ 59 2D Normal Values RVIDd: 3.17 cm <2.7 cm IVSd: .90 cm 0.6 - 1.0 cm LVIDd: 6.27 cm 3.7 - 5.6 cm LVPWd: 1.00 cm 0.6 - 1.1 cm LVIDs: 4.91 cm 1.5 - 3.6 cm AO: 2.20 cm < 4.0 cm LA: 5.15 cm 2.0 - 4.0cm %FS: 34.10 cm >25 % LA volume: 165 Mitral Valve Peak E:.74 m/sec Peak A:.33 m/sec E/A Ratio:2.3 Peak E' Lat Marlon:10.2 cm/s Peak E' Med Marlon:7.96 cm/s E/E' Lat Ratio:7.3 E/E' Med Ratio:9.3 Tricuspid Valve TV Regurg Peak Grad: 42.00mmHg TV Regurg Peak Marlon: 3.24m/sec Updated by Solange English on 06/17/2016 4:28:43 PM electronically signed on 06/17/2016 4:29:56 PM with status of Final Wall Motion [place]: 1=Normal, 2=Hypokinesis, 3=Akinesis, 4=Dyskinesis, 5=Aneurysmal, 6=Hyperkinetic, X=Not Visualized (Blank)=Missing
--- NOTE | 2016-06-17 17:52 | Internal Med Progress Note ---
Date of Encounter: 06/17/16 Time of Encounter: 17:42 - Assessment and plan (1) NSVT (nonsustained ventricular tachycardia) Current Visit: Yes Status: Acute Assessment and plan: Patient had a nonsustained ventricular tachycardia. He was evaluated by risk investigator in the office and sent to Hospital for further management of antiarrhythmic drug Patient's medications will be adjusted by cardiology. Patient denies any further palpitations/dizziness. (2) ICD (implantable cardioverter-defibrillator) in place Current Visit: Yes Status: Acute Assessment and plan: Cardiology on the board and they are managing this issue (3) Coronary artery disease Current Visit: Yes Status: Chronic Assessment and plan: Stable. Qualifiers: Coronary Disease-Associated Artery/Lesion type: bypass graft [place] vs. transplanted heart: [place] heart Associated angina: without angina Qualified Code(s): I25.810 - Atherosclerosis of coronary artery bypass graft(s) without angina pectoris (4) Ischemic cardiomyopathy Current Visit: Yes Status: Chronic Assessment and plan: EF is around 40%. We will continue appropriate management. (5) DVT prophylaxis Current Visit: No Status: Acute Assessment and plan: Heparin - Subjective Interval history: Patient seen and examined. Chart review. Patient is comfortably lying in the bed. Patient denies any palpitations, chest pain, dizziness, abdominal pain or diarrhea. - Constitutional Vitals: Temp Pulse Resp BP Pulse Ox 98 F 70 18 85/54 97 06/17/16 16:00 06/17/16 16:00 06/17/16 16:00 06/17/16 16:00 06/17/16 16:00 General appearance: Present: cooperative, mild distress, A&O X 3, pleasant, answers questions appropriately - Head Head exam: Present: atraumatic, normocephalic - Eye Eye exam: Present: PERRL, conjuntiva pink, sclera anicteric Pupils: Present: PERRL - Neck Neck exam general surgery: Present: supple, trachea midline. Absent: lymphadenopathy - Respiratory Respiratory exam: Present: CTAB. Absent: accessory muscle use, rales, rhonchi, wheezes - Cardiovascular Cardiovascular exam: Present: RRR, +S1, +S2. Absent: diastolic murmur, gallop, rubs, systolic murmur - GI/Abdominal GI/Abdominal exam: Present: normal bowel sounds, soft, no peritoneal signs. Absent: distended, tenderness - Extremities Exam Extremities exam: Present: warm, radial pulses palpable and symetrical. Absent : calf tenderness, cyanotic, pedal edema - Neurological Exam Neurological exam: Present: CN II-XII intact, oriented X3, no focal deficits. Absent: pronater drift, facial droop, speech deficit - Skin Skin exam: Present: dry, intact Internal Medicine: Result - Labs CBC & Chem 7: 06/17/16 04:34 06/17/16 04:34 Labs: Short CBC 06/17/16 Range/Units 04:34 WBC 6.8 (4.3-11.1) K/mcL Hgb 10.5 L D (12.9-16.9) g/dL Hct 31.6 L (37.5-50.1) % Plt Count 183 (140-400) K/mcL Neutrophils # 5.1 (1.6-8.9) K/mcL BMP 06/17/16 04:34 Sodium 140 Potassium 4.0 Chloride 101 Carbon Dioxide 31 H BUN 12 Creatinine 0.74 Glucose 93 Calcium 8.8 Consult Discharge Plan - Plan [facility]errals: [facility] [Primary Care Provider] -
--- NOTE | 2016-06-17 19:47 | Electrocardiograph Report ---
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
[2016-06-18] MEDS: *HR* Heparin 5,000 UNIT/ML VIAL SQ SCH (05:10)
[2016-06-18] MEDS: Artificial Tears SOLN 15 ML BOTTLE BOTH EYES SCH ×3 (09:33→13:11)
[2016-06-18] MEDS: cephALEXin 500 MG CAPSULE PO SCH ×2 (09:36→13:10)
[2016-06-18] MEDS: Furosemide 40 MG TABLET PO SCH (09:37)
[2016-06-18] MEDS: Cholecalciferol (D-3) 1,000 UNIT TABLET PO SCH (09:37)
[2016-06-18] MEDS ORDERED: Spironolactone 25 MG TABLET PO SCH (09:54)
[2016-06-18] MEDS: Ipratropium/Albuterol Neb 3 ML IH PRN (10:14)
[2016-06-18] MEDS: Budesonide/Formoterol 160/4.5 MDI IH SCH (10:14)
[2016-06-18 11:46] VITALS: BP 97/71
--- NOTE | 2016-06-18 12:01 | Cardiology Progress Note ---
Date of Encounter: 06/18/16 Time of Encounter: 11:59 Assessment and Plan (1) NSVT (nonsustained ventricular tachycardia) Current Visit: Yes Status: Acute Repeat device check shows 11 episodes of NSVT up to 30 seconds. Episodes of VT not long enough to require shock. Device check on 06/15/16 shoed 4 episodes of vfib and 2 episodes of VT treated with ATP since February. K 3.4 on admission. Replaced. 4.0 yesterday Reports running out of potassium supplement recently. Poor oral intake d/t difficulty swallowing. Keep potassium above 4.0 and magnesium above 2.0. SAM completed for valvular heart disease 03/19/16-EF 40%, global hypokenesis with regional variations. Normal RV size and function, severely dilated LA. Mod- severe MR, which is eccentric. Mild TR. There is a small PFO. Echo rechecked. EF 40%, mild-moderate eccentric MR, mild-moderate TR. Increased Sotalol to 160mg BID. Has received 4 doses. EKG QTc remains <500ms. Machine interpreted QTc as 505ms this AM, but reviewed with Dr. Garcia and is ~ 480ms. Continue increased dose. Hypotensive at times, but asymptomatic. Telemetry shows less frequent and shorter duration of NSVT. Longest run in 24 hours is 3 beats. Cardiology is signing off. Okay for discharge home today with outpt cardiology follow-up. Will coordinate. Reconsult PRN. (2) ICD (implantable cardioverter-defibrillator) in place Current Visit: Yes Status: Acute ICD in place for ischemic cardiomyopathy. (3) Mitral regurgitation Current Visit: Yes Status: Acute Known moderate to severe MR on SAM 02/2016 Echo yesterday shows mild-moderate eccentric MR. Qualifiers: Cardiac valve disease etiology: etiology unspecified Qualified Code(s): I34.0 - Nonrheumatic mitral (valve) insufficiency (4) Coronary artery disease Current Visit: Yes Status: Chronic H/o CABG in 2001. Denies chest pain. Continue asa, statin, and bb. Last [facility] 02/22/13- 05/25 patent bypass grafts. Severe three vessel [place] CAD. Qualifiers: Coronary Disease-Associated Artery/Lesion type: bypass graft [place] vs. transplanted heart: [place] heart Associated angina: without angina Qualified Code(s): I25.810 - Atherosclerosis of coronary artery bypass graft(s) without angina pectoris (5) Ischemic cardiomyopathy Current Visit: Yes Status: Chronic Last SAM 02/2016 showed EF 40%. Echo resulted--unchanged 40%. Currently euvolemic. Noted that optivl fluid accumulation per ICD report. CXR shows no acute finding. Continue carvedilol. No zayra-inhibitor d/t hypotension. Continue maintenance lasix and spironlactone. Discussion w patient/family: The assessment and plan as outlined above was discussed with the patient and/or family members who expressed understanding and agreement. All questions were answered. Thank you for involving us in the care of your patient. Please call with any questions. I will discuss all the above with Dr. Garcia and make changes as necessary. Subjective Principal diagnosis: VT Interval history: Pt denies any acute complaints this AM. Sotalol increased to 160mg BID. EKG QTc <500ms. Reviewed with Dr. Garcia. Machine interpreted as 505ms, but actually ~ 480ms. Paced. NSVT continuing to become less frequent and less duration. 24 hour tele longest run 3 beats. Has received 4 doses. Echo resulted--EF 40%, unchanged from prior. Objective Vital Signs, Last 4 Hours Pulse Resp BP Pulse Ox 06/18/16 11:41 69 18 97/71 96 06/18/16 10:14 18 96 06/18/16 09:00 96 Vital Signs Temp Pulse Resp BP Pulse Ox 06/18/16 11:41 69 18 97/71 96 06/18/16 10:14 18 96 06/18/16 09:00 96 06/18/16 07:02 98 F 74 18 102/66 96 06/18/16 03:39 97.7 F 69 18 85/55 96 06/17/16 20:00 17 96 06/17/16 19:31 97.9 F 78 18 107/64 96 06/17/16 16:00 98 F 70 18 85/54 97 Intake and Output 06/17/16 06/18/16 06/18/16 23:59 07:59 15:59 Intake Total 120 / 120 0 / 0 120 / 120 Output Total 0 / 0 0 / 0 Balance 120 / 120 0 / 0 120 / 120 Intake: Oral 120 / 120 0 / 0 120 / 120 Output: Urine 0 / 0 0 / 0 Other: Meal Dinner Breakfast Percent of Meal Consumed 45% # Voids 3 # Bowel Movements 1 Weight 48.5 kg Patient Weight 06/18/16 23:59 Weight 48.5 kg General: Conversant, No Apparent Distress HEENT: Atraumatic, Normocephaly, Mucus Membranes Moist Neck: No JVD, Normal carotid pulses Cardiac: Reg Rate and Rhythm, Normal S1 and S2, No Murmur Lungs: Normal Breath Sounds, No Wheeze, Rales, Rhonchi Neuro: Alert and responsive, No focal deficits noted Abdomen: Soft, Non-Tender Skin: No rashes noted on visualized skin Musculoskeletal: No Chest Wall Tenderness Extremities: No Clubbing, No Cyanosis, No Edema, Normal Pulses Results 06/17/16 04:34 06/17/16 04:34 Active Medications Acetaminophen (Tylenol) 650 mg PO Q6HR PRN PRN Reason: Mild Pain (1-3) Stop: 12/16/16 10:46 Albuterol/Ipratropium (Duoneb) 3 ml IH [id number] PRN; Protocol PRN Reason: Shortness Of Breath/Wheezing Stop: 12/16/16 11:57 Last Admin: 06/18/16 10:14 Dose: 3 ml Artificial Tears (Akwa Tears) 1 drop BOTH EYES QID [facility] PRN Reason: Protocol Stop: 12/18/16 05:31 Last Admin: 06/18/16 10:12 Dose: 1 drop Budesonide/Formoterol Fumarate (Symbicort) 2 puff IH BIDR JUL[facility]ETTE PRN Reason: Protocol Stop: 12/16/16 22:01 Last Admin: 06/18/16 10:14 Dose: 2 puff Carvedilol (Coreg) 12.5 mg PO BID JULIETTE PRN Reason: Protocol Stop: 12/16/16 21:01 Last Admin: 06/18/16 09:35 Dose: 12.5 mg Cephalexin HCl (Keflex) 500 mg PO QID [facility] Stop: 06/24/16 13:01 Last Admin: 06/18/16 09:36 Dose: 500 mg Furosemide (Lasix) 40 mg PO BID [facility] Stop: 12/16/16 21:01 Last Admin: 06/18/16 09:37 Dose: 40 mg Heparin Sodium (Porcine) (Heparin) 5,000 unit SQ Q12HR [facility] Stop: 12/16/16 18:01 Last Admin: 06/18/16 05:10 Dose: 5,000 unit Naloxone HCl (Narcan) 0.4 mg IVP Q2MIN PRN PRN Reason: Opioid Reversal Stop: 12/16/16 10:46 Potassium Chloride (Potassium Chloride) 20 meq PO BID JULIETTE Stop: 12/16/16 21:01 Last Admin: 06/18/16 09:34 Dose: 20 meq Simvastatin (Zocor) 80 mg PO HS JULIETTE Stop: 12/16/16 21:01 Last Admin: 06/17/16 20:12 Dose: 80 mg Sotalol HCl (Betapace) 160 mg PO BID JULIETTE Stop: 12/16/16 21:01 Last Admin: 06/18/16 09:33 Dose: 160 mg Spironolactone (Aldactone) 12.5 mg PO DAILY JULIETTE Stop: 12/18/16 09:54 Last Admin: 06/18/16 10:12 Dose: 12.5 mg Vitamin D (Vitamin D) 1,000 unit PO DAILY JULIETTE Stop: 12/17/16 09:01 Last Admin: 06/18/16 09:37 Dose: 1,000 unit - Imaging and Cardiology Echo: report reviewed - EKG Interpretation EKG results cardiology: other (24 hour tele AVG HR 70, longest NSVT 3 beats) Consult Discharge Plan - Plan [facility]errals: [facility] [Primary Care Provider] -
--- NOTE | 2016-06-18 12:53 | Discharge Summary ---
Date of Encounter: 06/18/16 Time of Encounter: 12:52 - Discharge Diagnosis (1) NSVT (nonsustained ventricular tachycardia) Priority: Primary Status: Acute (2) ICD (implantable cardioverter-defibrillator) in place Priority: Primary Status: Acute (3) Coronary artery disease Priority: Secondary Status: Chronic Qualifiers: Coronary Disease-Associated Artery/Lesion type: bypass graft [place] vs. transplanted heart: [place] heart Associated angina: without angina Qualified Code(s): I25.810 - Atherosclerosis of coronary artery bypass graft(s) without angina pectoris (4) Ischemic cardiomyopathy Priority: Secondary Status: Chronic (5) DVT prophylaxis Priority: Secondary Status: Acute - Discharge Medications Prescriptions: Sotalol HCl [Betapace] 160 mg PO BID #60 tablet Home Medications: Furosemide [Lasix] 40 mg PO BID #0 01/17/15 [History] Potassium Chloride [K-Tab ER] 20 meq PO BID #0 01/17/15 [History] Simvastatin [Zocor] 80 mg PO HS #0 01/17/15 [History] Albuterol Sulfate [Albuterol Inhaler] 2 puff IH Q6HR PRN 01/18/15 [History] Budesonide/Formoterol 160/4.5 [Symbicort] 2 puff IH BIDR 01/18/15 [History] Ipratropium/Albuterol Neb [Duoneb] 3 ml IH Q4H PRN 01/18/15 [History] Spironolactone [Aldactone] 10 mg PO DAILY 01/18/15 [History] Carvedilol [Coreg] 12.5 mg PO BID 06/07/16 [History] Cholecalciferol (D-3) [Vitamin D] 1,000 unit PO BID 06/07/16 [History] Pantoprazole Sodium 40 mg PO BID 06/07/16 [History] Cephalexin [Keflex] 500 mg PO QID #40 capsule 06/14/16 [Rx] Oxygen 2 l .ROUTE AD 06/16/16 [History] Sotalol HCl [Betapace] 160 mg PO BID #60 tablet 06/18/16 [Rx] Allergies/Adverse Reactions: Allergies codeine Adverse Reaction (Verified 06/16/16 08:42) Nausea Procedures/tests Complete & Pending: Procedures Performed prior 72 hours Category Date Time Status ECG 12 lead ECG [ECG] Routine Y 06/16/16 08:43 Completed ECG 12 lead ECG [ECG] Routine Y 06/17/16 11:21 Completed EKG [ECG 12 lead ECG] [ECG] AM 0600 Y 06/18/16 06:00 Ordered EKG [ECG 12 lead ECG] [ECG] AM 0600 Y 06/19/16 06:00 Ordered EKG [ECG 12 lead ECG] [ECG] AM 0600 Y 06/20/16 06:00 Ordered EV echocardiogram Routine Y 06/17/16 16:28 Completed Date of admission: 06/16/16 12:35 [facility] care physician: [facility] Discharging clinician: Mario Wells - Patient Status Disposition: Home, Self-Care Condition: Fair Functional capacity at discharge: independent ambulation Overall status at discharge: patient is progressing back to baseline - Discharge Instructions Follow Up With: [facility] [Primary Care Provider] - Emmett Funez, NIGHT ORDER SELECTOR [Advanced Practice Nurse] - - Diet and Activity Activity: as per physical therapy, increase activity as tolerated Diet: low fat, low cholesterol, low salt diet Interval History: Mr. Latif is a 70 year old male patient with a history of coronary artery disease, ischemic cardiomyopathy, systolic congestive heart failure with pacemaker and AICD in situ presented to the ER with complaints of presyncope, dizziness and lightheadedness that has been ongoing for the past 2-3 days. He was seen in the ER at different facility the day before yesterday and was monitored with telemetry and as he did not show any abnormalities, and he underwent AICD interrogation yesterday. He however continued to have symptoms intermittently and this morning he decided to come to our ER. He denies any chest pain. He was diagnosed with possible pneumonia during that visit and started on antibiotic for it. He has been taking the antibiotic prescribed accordingly. He denies any fever or chills. He does have some cough. No sputum production. He denies any syncopal episode. Hospital course: Patient was hospitalized. Cardiology evaluated the patient. His sotalol dose was changed to 160 mg twice a day. Patient received 4 dosages. Patient claims that his symptoms improved a lot. Plan Patient can go home today. Prescription was given for sotalol 160 mg twice a day. Patient will see cardiology in 1-2 weeks. Patient will see his primary care physician in one to 2 weeks. All questions answered. At the time of discharge patient does not have any questions, concerns, update our recommendations. - Time Spent with Patient Total time spent providing and/or coordinating discharge services: - Constitutional Vitals: Temp Pulse Resp BP Pulse Ox 98 F 69 18 97/71 96 06/18/16 07:02 06/18/16 11:41 06/18/16 11:41 06/18/16 11:41 06/18/16 11:41 General appearance: Present: cooperative, mild distress, A&O X 3, pleasant, answers questions appropriately - Head Head exam: Present: atraumatic, normocephalic - Eye Eye exam: Present: PERRL, conjuntiva pink, sclera anicteric Pupils: Present: PERRL - Neck Neck exam general surgery: Present: supple, trachea midline. Absent: lymphadenopathy - Respiratory Respiratory exam: Present: CTAB. Absent: accessory muscle use, rales, rhonchi, wheezes - Cardiovascular Cardiovascular exam: Present: RRR, +S1, +S2. Absent: diastolic murmur, gallop, rubs, systolic murmur - GI/Abdominal GI/Abdominal exam: Present: normal bowel sounds, soft, no peritoneal signs. Absent: distended, tenderness - Extremities Exam Extremities exam: Present: warm, radial pulses palpable and symetrical. Absent : calf tenderness, cyanotic, pedal edema - Neurological Exam Neurological exam: Present: CN II-XII intact, oriented X3, no focal deficits. Absent: pronater drift, facial droop, speech deficit - Skin Skin exam: Present: dry, intact
--- NOTE | 2016-06-20 17:34 | Electrocardiograph Report ---
[address] [address] Test Date: 2016-06-18 Pat Name: Isai Latif Department: 111 Room: 2N8 Gender: M Weblogic Developer: [id number] : 1945 Requested By: Ramakrishna Guevara Order Number: [id number] Reading MD: Nelia Wolf Measurements Intervals [place] Rate: 71 P: -89 NV: 165 QRS: 124 QRSD: 147 T: 41 QT: 482 QTc: 505 Interpretive Statements ELECTRONIC ATRIAL PACEMAKER ELECTRONIC VENTRICULAR PACEMAKER ABNORMAL RHYTHM ECG Electronically Signed On 06-20-2016 17:32:27 EDT by Nelia Wolf
== END 2016-06-18 16:00 | disposition home or self-care (01) | DRG 308 ==
LOC: EMEROO 08:36 → 2NENU 12:35
PROVIDERS: ADMIT Internal Medicine; ATTEND Internal Medicine

== ENCOUNTER 2016-07-01 19:00 | Inpatient (IN) ==
--- NOTE | 2016-07-01 19:46 | Emergency Department Note ---
Disposition Clinical Impression: Palpitations, Ventricular tachycardia Disposition: Admitted As Inpatient Referrals: Unassigned,Provider [Non-Partnered Physician] - Forms: ED Satisfaction Letter Arrhythmia/Palpitations HPI - General Chief Complaint: ED Arrhythmia/Palpitations Stated Complaint: Pacemaker not firing Time Seen by Provider: 07/01/16 19:28 Source: patient Limitations: no limitations Nursing Notes Reviewed: Yes Vital Signs Reviewed: Yes - History of Present Illness HPI Narrative: Palpitations are the primary reason for the patient's visit he did have this last week and he was seen and evaluated. The patient feels like he has palpitations and then like his pacemaker should fire but because has not fired he came to the emergency department. Does have a generalized hot feeling in his entire body before this happens and this has been his experience in the past that this happens before his pacemaker fires. He denies any chest pain or shortness of breath. No dizziness. No passing out. Social history: No smoking - Related Data Home Medications Medication Instructions Recorded Confirmed Furosemide [Lasix] 40 mg PO BID #0 01/17/15 07/01/16 Potassium Chloride [K-Tab ER] 20 meq PO BID #0 01/17/15 07/01/16 Simvastatin [Zocor] 80 mg PO HS #0 01/17/15 07/01/16 Albuterol Sulfate [Albuterol 2 puff IH Q6HR PRN 01/18/15 07/01/16 Inhaler] Budesonide/Formoterol 160/4.5 2 puff IH BIDR 01/18/15 07/01/16 [Symbicort] Ipratropium/Albuterol Neb [Duoneb] 3 ml IH Q4H PRN 01/18/15 07/01/16 Spironolactone [Aldactone] 12.5 mg PO DAILY 01/18/15 07/01/16 Carvedilol [Coreg] 12.5 mg PO BID 06/07/16 07/01/16 Cholecalciferol (D-3) [Vitamin D] 1,000 unit PO BID 06/07/16 07/01/16 Oxygen 2 l NS AD 06/16/16 07/01/16 Aspirin Enteric Coated [Aspirin EC] 81 mg PO DAILY 07/01/16 07/01/16 LORazepam [Ativan] 0.25 mg PO DAILY 07/01/16 07/01/16 Magic Mouthwash 10 ml PO QID PRN 07/01/16 07/01/16 Omeprazole [PriLOSEC] 20 mg PO DAILY 07/01/16 07/01/16 Ondansetron HCl [Zofran] 4 mg PO Q6H PRN 07/01/16 07/01/16 Prochlorperazine Maleate 10 mg PO Q6H PRN 07/01/16 07/01/16 [Compazine] Propylene Glycol/Peg 400 [Systane 1 drop BOTH EYES QAM 07/01/16 07/01/16 0.3-0.4% Eye Drops] Previous Rx's Medication Instructions Recorded Sotalol HCl [Betapace] 160 mg PO BID #60 tablet 06/18/16 Allergies Allergy/AdvReac Type Severity Reaction Status Date / Time codeine AdvReac Nausea Verified 07/01/16 19:08 Review of Systems: denies any chest pain or dizziness Constitutional: No fever Vision: No blurred vision ENT: No rhinorrhea Respiratory: No cough Allergic: No allergies : No blood in urine GI: No blood in stool Hematologic: No bruising Dermatologic: No skin rash Musculoskeletal: No pain in the extremities Neuro: No numbness of the extremities Past Medical History - Past Medical History Medical history: Reports: cancer, cardiomyopathy, CHF, COPD, coronary artery disease, CVA, GERD, GI bleed, hypertension, myocardial infarction, TIA, valvular heart disease, other Surgical history: Reports: angioplasty/stent, coronary bypass (CABG), herniorrhaphy, pacemaker/AICD, other, AICD, pacemaker Psychiatric history: Reports: no psych history - Social History Smoking Status: Former smoker Smokeless Tobacco Status: No Alcohol use: Reports: rarely Drug use: Reports: none Physical Exam CONSTITUTIONAL: Alert and oriented X3, well-nourished, well appearing, in no apparent distress HEAD: Normocephalic; atraumatic. EYES: PERRL, no scleral icterus. NOSE: The nose is normal in appearance without rhinorrhea RESP: Normal chest excursion with respiration; breath sounds clear and equal bilaterally; no wheezes, rhonchi, or rales CARD: Regular rhythm, without murmurs, rub or gallop ABD: Non-distended; non-tender, soft,without rigidity, rebound or guarding SKIN: Normal for age and race; warm and dry; no apparent lesions EXTREMITIES: Pulses are 2 plus and equal times 4 extremities, no peripheral edema or calf muscle pain. - General Limitations: no limitations General appearance: alert, in no apparent distress Course Vital Signs Temperature 98 F 07/01/16 19:02 Pulse Rate 65 07/01/16 19:02 Respiratory Rate 20 07/01/16 19:02 Blood Pressure 88/57 07/01/16 19:02 O2 Sat by Pulse Oximetry 95 07/01/16 19:02 Temperature 98 F 07/01/16 19:02 Pulse Rate 88 07/01/16 20:44 Respiratory Rate 20 07/01/16 20:44 Blood Pressure 114/69 07/01/16 20:44 O2 Sat by Pulse Oximetry 95 07/01/16 20:44 Oxygen Delivery Oxygen Delivery Room Air Arrhythmia/Palpitations - MDM Narrative Medical decision making narrative: I did review the patient's EKG showing a mostly paced rhythm with a rate of 97 and there are some PVCs. Labs are pending. The patient was watched on the quality assurance monitor. We will attempt to interrogate the pacemaker. Otherwise the patient is bright and alert and in no distress at this time. 1945 On the monitor did patient is having runs of ventricular tachycardia up to 8 beats at a time however I did go back and check on the patient and he is asymptomatic with this. The crash cart has been taken to the patient's room. Blood is drawn we are waiting for results. The pacemaker is interrogated and we are waiting for it to send the signal. Patient will be watched closely. He remains asymptomatic and I was just in the room and did speak with him as well as his neighbor who is here with him. 1952 I spoke with [employer] and they said pt has been treated with overdrive pacing 9 times today for VT/vFib and pt also having up to 110 PVCs per hour and some are runs of VT with 5-6 beats at a time. No shocks today or since he was last checked [address] Dodge and he rec stopping the sotolol and admit to hospitalist. I did speak with the hospitalist physician who accepts the patient for admission. We did discuss the plan to stop the sotalol. I also did speak with the pharmacist the patient will receive 2 g of magnesium. Critical care time: 30 minutes - Medical Records Medical records reviewed: Yes I reviewed the patient's medical records. - Lab Data Lab results reviewed: Yes I reviewed the patient's lab results. Result diagrams: 07/01/16 19:51 07/01/16 19:51 Lab Results 07/01/16 07/01/16 07/01/16 Range/Units 19:51 19:51 19:51 WBC 6.9 (4.3-11.1) K/mcL RBC 3.67 L (4.19-5.50) M/mcL Hgb 11.3 L (12.9-16.9) g/dL Hct 34.0 L (37.5-50.1) % MCV 92.6 (83.0-100.0) fL MCH 30.8 (28.0-33.3) pg MCHC 33.2 (31.6-35.5) g/dL RDW 14.1 (11.5-14.5) % Plt Count 180 (140-400) K/mcL MPV 9.6 (9.4-12.4) fL Immature Gran % 0.4 (0-4) % Seg Neutrophils % 76.5 % Lymphocytes % 11.9 % Monocytes % 8.4 % Eosinophils % 2.2 % Basophils % 0.6 % Neutrophils # 5.3 (1.6-8.9) K/mcL Lymphocytes # 0.8 (0.6-4.6) K/mcL Monocytes # 0.6 (0.0-1.3) K/mcL Eosinophils # 0.2 (0.0-0.6) K/mcL Basophils # 0.0 (0.0-0.2) K/mcL PT 11.1 (9.4-12.1) Seconds INR 1.0 APTT 27.8 (26.0-36.0) Seconds Sodium 139 (136-145) mEq/L Potassium 3.9 (3.5-4.5) mEq/L Chloride 101 (98-109) mEq/L Carbon Dioxide 31 H (19-29) mEq/L BUN 11 (8-26) mg/dL Creatinine 0.84 (0.72-1.25) mg/dL Est GFR ( Amer) > 60 (> 60) Est GFR (Non-Af Amer) > 60 (> 60) BUN/Creatinine Ratio 13 (6-26) Glucose 112 H (70-99) mg/dL Calculated Osmolality 288 (280-300) Calcium 9.2 (8.6-10.8) mg/dL Troponin I (0-0.03) ng/mL 07/01/16 Range/Units 19:51 WBC (4.3-11.1) K/mcL RBC (4.19-5.50) M/mcL Hgb (12.9-16.9) g/dL Hct (37.5-50.1) % MCV (83.0-100.0) fL MCH (28.0-33.3) pg MCHC (31.6-35.5) g/dL RDW (11.5-14.5) % Plt Count (140-400) K/mcL MPV (9.4-12.4) fL Immature Gran % (0-4) % Seg Neutrophils % % Lymphocytes % % Monocytes % % Eosinophils % % Basophils % % Neutrophils # (1.6-8.9) K/mcL Lymphocytes # (0.6-4.6) K/mcL Monocytes # (0.0-1.3) K/mcL Eosinophils # (0.0-0.6) K/mcL Basophils # (0.0-0.2) K/mcL PT (9.4-12.1) Seconds INR APTT (26.0-36.0) Seconds Sodium (136-145) mEq/L Potassium (3.5-4.5) mEq/L Chloride (98-109) mEq/L Carbon Dioxide (19-29) mEq/L BUN (8-26) mg/dL Creatinine (0.72-1.25) mg/dL Est GFR ( Amer) (> 60) Est GFR (Non-Af Amer) (> 60) BUN/Creatinine Ratio (6-26) Glucose (70-99) mg/dL Calculated Osmolality (280-300) Calcium (8.6-10.8) mg/dL Troponin I 0.01 (0-0.03) ng/mL - Radiology Data Radiology results reviewed: Yes I reviewed the patient's radiology results. Chest X-Ray 07/01/16 19:10 IMPRESSION: No acute process. D/ / Donny Ng MD / Donny Ng MD Interpreting Provider: Donny gN MD - EKG Data EKG attestation: Yes I reviewed and interpreted this EKG. Critical Care Time Critical Care Time: Yes Total Critical Care Time: 30 Attestation: Patient's ventricular tachycardia was managed with interrogation of the pacemaker, administration of magnesium, stopping sotalol, calls the silk spotter and hospitalist and the patient will be admitted to the hospital [id number]
[2016-07-01 19:57] LABS: Basophils % 0.6 %; Eosinophils # 0.2 K/mcL (0.0-0.6); Eosinophils % 2.2 %; Hemoglobin 11.3 g/dL (12.9-16.9); Immature Granulocytes % 0.4 % (0-4); Lymphocytes # 0.8 K/mcL (0.6-4.6); Lymphocytes % 11.9 %; Mean Corpuscular HGB Conc 33.2 g/dL (31.6-35.5); Mean Corpuscular Hemoglobin 30.8 pg (28.0-33.3); Mean Corpuscular Volume 92.6 fL (83.0-100.0); Mean Platelet Volume 9.6 fL (9.4-12.4); Monocytes # 0.6 K/mcL (0.0-1.3); Monocytes % 8.4 %; Neutrophils # 5.3 K/mcL (1.6-8.9); Platelet Count 180 K/mcL (140-400); Red Blood Count 3.67 M/mcL (4.19-5.50); Red Cell Distribution Width 14.1 % (11.5-14.5); Segmented Neutrophils % 76.5 %
[2016-07-01 20:02] LABS: Prothrombin Time 11.1 Seconds (9.4-12.1)
[2016-07-01 20:04] LABS: Activated Partial Thrombo Time 27.8 Seconds (26.0-36.0)
[2016-07-01 20:10] LABS: BUN/Creatinine Ratio 13 (6-26); Blood Urea Nitrogen 11 mg/dL (8-26); Calcium 9.2 mg/dL (8.6-10.8); Carbon Dioxide 31 mEq/L (19-29); Chloride 101 mEq/L (98-109); Glucose 112 mg/dL (70-99); Osmolality,Calculated 288 (280-300); Potassium 3.9 mEq/L (3.5-4.5); Sodium 139 mEq/L (136-145); eGFR For African Americans > 60 (> 60); eGFR For Non-African Americans > 60 (> 60)
[2016-07-01] MEDS ORDERED: Magnesium Sulfate 20 gm/500mL 20 GM/500 ML IV.SOLN IVC SCH (20:45)
[2016-07-01] MEDS ORDERED: Magnesium Sulfate 2 GM in D5% in Water 100 ML IVPB ONE (20:46)
[2016-07-01 20:53] LABS: Magnesium 2.3 mg/dL (1.6-2.6)
[2016-07-01] MEDS ORDERED: *HR* OxyCODONE Immed Rel 5 MG TABLET PO PRN (22:14)
[2016-07-01] MEDS ORDERED: Acetaminophen 325 MG TABLET PO PRN (22:14)
[2016-07-01] MEDS ORDERED: Naloxone 0.4 MG/ML INJ IVP PRN (22:14)
[2016-07-01] MEDS ORDERED: *HR* Morphine 2 MG/ML SYRINGE IVP PRN (22:14)
--- NOTE | 2016-07-01 22:26 | Internal Med History&Physical ---
<ChrisWarner marinelli - Last Filed: 07/01/16 22:28> Date of Encounter: 07/01/16 Time of Encounter: 22:24 Assessment and Plan (1) Ventricular tachycardia Current visit: Yes Status: Acute Patient is a episodes of nonsustained V. tach was observed in the emergency department and on ICD/pacer interrogation. He has been treated by his implantable device by override pacing however they have not been sustained enough to require defibrillation. Cardiology was contacted by the emergency department and they recommended magnesium which the patient is receiving in holding his sotalol at this time. We will continue to monitor the patient, give potassium 2 have a potassium greater than 4 and magnesium greater than 2. Cardiology will be consulted. (2) Anxiety Current visit: Yes Status: Acute Patient is having significant anxiety recently due to her recent diagnosis of esophageal cancer. He thinks this may be triggering his palpitations. We will treat with lorazepam 1 mg every 4 hours when necessary. 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 Plan is to undergo treatment with chemoradiation. (4) ICD (implantable cardioverter-defibrillator) in place Current visit: No Status: Acute Interrogated today, report reviewed reveals nonsustained V. tach treated with overdrive pacing. No defibrillator shocks required. (5) Coronary artery disease Current visit: No Status: Chronic Status post CABG approximately 15 years ago. Patient denies chest pain at this time, no EKG changes concerning for ischemia, troponin is negative. We will continue aspirin, beta day. Qualifiers: Coronary Disease-Associated Artery/Lesion type: bypass graft [place] vs. transplanted heart: [place] heart Associated angina: without angina Qualified Code(s): I25.810 - Atherosclerosis of coronary artery bypass graft(s) without angina pectoris (6) Ischemic cardiomyopathy Current visit: No Status: Chronic Most recent EF is 40% with global systolic dysfunction. No evidence of acute exacerbation of heart failure. We will continue spironolactone, beta day. (7) COPD (chronic obstructive pulmonary disease) Current visit: No Status: Acute Stable at this time. No evidence of acute exacerbation. Continue Symbicort and when necessary DuoNeb nebs. Qualifiers: COPD type: unspecified COPD Qualified Code(s): J44.9 - Chronic obstructive pulmonary disease, unspecified (8) DVT prophylaxis Current visit: No Status: Acute Heparin 5000 units subcutaneous twice a day. Internal Medicine - H&P: HPI Chief complaint: Palpitations Admitted From: Emergency Dept Plans for Post Hospital Care: Home History of present illness: Mr. Latif is a 70 year old male with history of V. tach, coronary disease who presents with palpitations. Patient states his symptoms started today. Patient states that he had similar symptoms several weeks ago and was admitted at that time and had an increase of his sotalol dose. Patient was feeling normal since his previous discharge until today when he noticed palpitations with associated hot flashes. Patient thinks these are related to anxiety due to a recent diagnosis of esophageal cancer. Patient has an implantable defibrillator in place and it has not fired. He had several episodes while in the emergency department as well. He has been in his usual state of health recently denies fever, chills, chest pain, shortness of breath, nausea, vomiting , diarrhea, abdominal pain. Past Med Surg Social Fam HX - Past Medical History Medical history: cancer, cardiomyopathy, CHF, COPD, coronary artery disease, CVA , GERD, GI bleed, hypertension, myocardial infarction, TIA, valvular heart disease, other Psychiatric history: no psych history - Past Surgical History Surgical History: angioplasty/stent, coronary bypass (CABG), herniorrhaphy, pacemaker/AICD, other, AICD, pacemaker - Social History Smoking Status: Former smoker Smokeless Tobacco Status: No Alcohol use: rarely Drug use: none - Family History Father Adopted: No Family Member Ethnicity: Non- Living Status: Hx Family Cardiac Disorders: No Hx Family Respiratory Disorders: Yes (Emphysema) Hx Family Cancer: No Hx Family GI Disorders: No Hx Family Endocrine Disorder: No Hx Family Neuromuscular Disorders: No Hx Family Neurologic Disorders: No Hx Family HEENT Disorders: No Hx Family Autoimmune Disorders: No Mother Adopted: No Family Member Ethnicity: Non- Living Status: Hx Family Cardiac Disorders: No Hx Family Respiratory Disorders: Yes (Emphysema) Hx Family Cancer: Yes (Lung) Hx Family GI Disorders: No Hx Family Endocrine Disorder: No Hx Family Neuromuscular Disorders: No Hx Family Neurologic Disorders: No Hx Family HEENT Disorders: No Hx Family Autoimmune Disorders: No Internal Medicine - H&P: Meds Furosemide [Lasix] 40 mg PO BID #0 01/17/15 [History] Potassium Chloride [K-Tab ER] 20 meq PO BID #0 01/17/15 [History] Simvastatin [Zocor] 80 mg PO HS #0 01/17/15 [History] Albuterol Sulfate [Albuterol Inhaler] 2 puff IH Q6HR PRN 01/18/15 [History] Budesonide/Formoterol 160/4.5 [Symbicort] 2 puff IH BIDR 01/18/15 [History] Ipratropium/Albuterol Neb [Duoneb] 3 ml IH Q4H PRN 01/18/15 [History] Spironolactone [Aldactone] 12.5 mg PO DAILY 01/18/15 [History] Carvedilol [Coreg] 12.5 mg PO BID 06/07/16 [History] Cholecalciferol (D-3) [Vitamin D] 1,000 unit PO BID 06/07/16 [History] Oxygen 2 l NS AD 06/16/16 [History] Sotalol HCl [Betapace] 160 mg PO BID #60 tablet 06/18/16 [Rx] Aspirin Enteric Coated [Aspirin EC] 81 mg PO DAILY 07/01/16 [History] LORazepam [Ativan] 0.25 mg PO DAILY 07/01/16 [History] Magic Mouthwash 10 ml PO QID PRN 07/01/16 [History] Omeprazole [PriLOSEC] 20 mg PO DAILY 07/01/16 [History] Ondansetron HCl [Zofran] 4 mg PO Q6H PRN 07/01/16 [History] Prochlorperazine Maleate [Compazine] 10 mg PO Q6H PRN 07/01/16 [History] Propylene Glycol/Peg 400 [Systane 0.3-0.4% Eye Drops] 1 drop BOTH EYES QAM 07/01 [History] Allergies codeine Adverse Reaction (Verified 07/01/16 19:08) Nausea All Systems PM: A 10-system review of systems was performed and is negative for pertinent findings except as documented above in the HPI. - Constitutional Constitutional: no chills, no fever(s) - EENT Eyes: no change in vision Nose, mouth and throat: no sinus pain, no sinus pressure, no sore throat - Cardiovascular Cardiovascular ROS IM: irregular heart rhythm, palpitations, no chest pain, no dyspnea, no syncope - Respiratory Respiratory: no cough, no dyspnea, no wheezing, no chest congestion, no excessive phlegm production, no change in phlegm color - Gastrointestinal Gastrointestinal: no abdominal pain, no diarrhea, no nausea, no vomiting - Genitourinary Genitourinary ROS male: no dysuria, no urinary frequency, no urinary urgency - Neurological Neurological ROS: no confusion, no dizziness, no tingling, no weakness - Psychiatric Psychiatric: anxiety, panic attacks - Constitutional Vitals: Temp Pulse Resp BP Pulse Ox 97.9 F 85 15 93/68 96 07/01/16 21:57 07/01/16 22:09 07/01/16 21:57 07/01/16 21:57 07/01/16 22:00 General appearance: Present: A&O X 3, no acute distress Internal Med - H&P Results - Labs CBC & Chem 7: 07/01/16 19:51 07/01/16 19:51 <Sarkis Goff - Last Filed: 07/01/16 23:00> Date of Encounter: 07/01/16 Internal Medicine - H&P: HPI History of present illness: Mr. Latif is a 70 year old male All Systems PM: A 10-system review of systems was performed and is negative for pertinent findings except as documented above in the HPI. - Constitutional Vitals: Temp Pulse Resp BP Pulse Ox 97.9 F 85 15 93/68 96 07/01/16 21:57 07/01/16 22:09 07/01/16 21:57 07/01/16 21:57 07/01/16 22:00 Internal Med - H&P Results - Labs CBC & Chem 7: 07/01/16 19:51 07/01/16 19:51 - EKG Data -: EKG Interpreted by Myself - Diagnostic Studies Chest x-ray Status: image reviewed by me - Attending Attestation I personally interviewed and examined this patient and my medical decision- making was reviewed with the Resident Physician. I agree with the documented findings, disposition and treatment plan as described.
[2016-07-01] MEDS: *HR* LORazepam 2 MG/ML VIAL IVP SCH (23:53)
[2016-07-02] MEDS ORDERED: Magnesium Sulfate 2 GM in D5% in Water 100 ML IVPB ONE (01:00)
[2016-07-02 03:53] LABS: Basophils % 0.5 %; Eosinophils # 0.1 K/mcL (0.0-0.6); Eosinophils % 2.3 %; Hemoglobin 10.2 g/dL (12.9-16.9); Immature Granulocytes % 0.2 % (0-4); Lymphocytes # 1.3 K/mcL (0.6-4.6); Lymphocytes % 21.7 %; Mean Platelet Volume 10.3 fL (9.4-12.4); Monocytes # 0.6 K/mcL (0.0-1.3); Monocytes % 9.3 %; Neutrophils # 4.1 K/mcL (1.6-8.9); Platelet Count 165 K/mcL (140-400); Red Blood Count 3.19 M/mcL (4.19-5.50); Red Cell Distribution Width 14.3 % (11.5-14.5)
[2016-07-02 04:00] LABS: Prothrombin Time 11.2 Seconds (9.4-12.1)
[2016-07-02 04:10] LABS: BUN/Creatinine Ratio 12 (6-26); Blood Urea Nitrogen 9 mg/dL (8-26); Calcium 8.4 mg/dL (8.6-10.8); Carbon Dioxide 28 mEq/L (19-29); Chloride 102 mEq/L (98-109); Glucose 98 mg/dL (70-99); Magnesium 3.4 mg/dL (1.6-2.6); Osmolality,Calculated 285 (280-300); Potassium 3.8 mEq/L (3.5-4.5); Sodium 138 mEq/L (136-145); eGFR For African Americans > 60 (> 60); eGFR For Non-African Americans > 60 (> 60)
[2016-07-02] MEDS: *HR* LORazepam 2 MG/ML VIAL IVP SCH (04:21)
[2016-07-02] MEDS: *HR* Heparin 5,000 UNIT/ML VIAL SQ SCH ×2 (06:07→17:53)
[2016-07-02] MEDS ORDERED: Artificial Tears SOLN 15 ML BOTTLE BOTH EYES PRN (07:51)
[2016-07-02] MEDS: Aspirin Enteric Coated 81 MG Tablet PO SCH (09:05)
[2016-07-02] MEDS: Cholecalciferol (D-3) 1,000 UNIT TABLET PO SCH ×2 (09:05→21:47)
[2016-07-02] MEDS: Furosemide 40 MG TABLET PO SCH ×2 (09:05→21:47)
[2016-07-02] MEDS: Spironolactone 25 MG TABLET PO SCH (09:08)
[2016-07-02] MEDS: *HR* LORazepam 2 MG/ML VIAL IVP PRN ×2 (09:19→21:47)
--- NOTE | 2016-07-02 10:11 | Cardiology Consult Note ---
Date of Encounter: 07/02/16 Time of Encounter: 09:30 Assessment and Plan (1) Ventricular tachycardia Current Visit: Yes Status: Acute Presents with presyncope. Found to have re-current frequent episodes of NSVT. Device check showed 11 NSVT episodes successfully treated with ATP. There was a total of 502 small runs of NSVT seen since 06/16/16. Atrial paced 89.1%. V paced 85.8%. Troponin negative x3. EKG shows atrial pacing and frequent PVC/ PAC. SR underlying. Recent cardiac testing: SAM completed for valvular heart disease 03/19/16-EF 40%, global hypokenesis with regional variations. Normal RV size and function, linear echo density in consistent with pacer lead seen in right atrium. severely dilated LA. Anterior mitral valve leaflet mildly thickened. Restricted motion of posterior mitral valve leaflet. Mod-severe MR, which is eccentric. Mild TR. There is a small PFO. TTE-06/17/16- Echo rechecked. EF 40%, mild-moderate eccentric MR, mild-moderate TR. [facility] 02/2013- Bypass grafts patent. Recent attempt at increasing sotalol therapy. Initially he improved. Findings reviewed with Dr. Shahzad Wolf. Hold sotalol 48 hr to allow wash out. Last dose 1200 07/01/16. Start oral amiodarone tomorrow afternoon at 200 mg BID. ICD working appropriately. Continue to monitor telemetry and electrolytes. Given potassium and magnesium this morning. K 3.8, magnesium 3.4. (2) ICD (implantable cardioverter-defibrillator) in place Current Visit: No Status: Acute ICD check on chart. See plan above. (3) Coronary artery disease Current Visit: No Status: Chronic Status post CABG approximately 15 years ago. [facility] 2013 showed patent bypass grafts. Continue asa, statin, and bb. Qualifiers: Coronary Disease-Associated Artery/Lesion type: bypass graft [place] vs. transplanted heart: [place] heart Associated angina: without angina Qualified Code(s): I25.810 - Atherosclerosis of coronary artery bypass graft(s) without angina pectoris (4) Ischemic cardiomyopathy Current Visit: No Status: Chronic Most recent EF is 40% with global systolic dysfunction. Currently euvolemic on exam. Laying flat without distress. Continue carvedilol. No zayra inhibitor d/t hypotension. Low sodium diet and daily weights. Discussion w patient/family: The assessment and plan as outlined above was discussed with the patient and/or family members who expressed understanding and agreement. All questions were answered. Thank you for involving us in the care of your patient. Please call with any questions. History of Present Illness Consult date: 07/02/16 Requesting physician: Sarkis Goff Consult reason: NSVT Chief complaint: weakness, presyncope History of present illness: Mr. Latif is a 70 year old male with a history of CABG in 2001, ischemic cardiomyoapthy, ICD, and newly diagnosed gastroesophogeal cancer preparing for chemo and radiation who presented with the c/o feeling like he was going to be shocked. He c/o weakness and like "life was draining out of him." He had similair symptoms in the past prior to being shocked by his ICD. He was recently hospitalized one month ago for frequent episodes of NSVT. His sotalol therapy was increased at that time. He has a history of being shocked multiple times in the past. Denies recent ICD shock. He presented to ED and device check was completed. He has a [employer] AIDE- D device. Check showed 11 NSVT episodes successfully treated with ATP. There was a total of 502 small runs of NSVT seen since 06/16/16. Atrial paced 89.1%. V paced 85.8%. Troponin negative x3. EKG shows atrial pacing and frequent PVC. Recent cardiac testing: SAM completed for valvular heart disease 03/19/16-EF 40%, global hypokenesis with regional variations. Normal RV size and function, linear echo density in consistent with pacer lead seen in right atrium. severely dilated LA. Anterior mitral valve leaflet mildly thickened. Restricted motion of posterior mitral valve leaflet. Mod-severe MR, which is eccentric. Mild TR. There is a small PFO. TTE-06/17/16- Echo rechecked. EF 40%, mild-moderate eccentric MR, mild-moderate TR. [facility] 02/2013- Bypass grafts patent. Past Med Surg Social Fam HX - Past Medical History Attestation: Yes The following information was validated with the patient. Medical history: cancer, cardiomyopathy, CHF, COPD, coronary artery disease, CVA , GERD, GI bleed, hypertension, myocardial infarction, TIA, valvular heart disease, other Psychiatric history: no psych history - Past Surgical History Surgical History: angioplasty/stent, coronary bypass (CABG), herniorrhaphy, pacemaker/AICD, other, AICD, pacemaker - Social History Smoking Status: Former smoker Smokeless Tobacco Status: No Alcohol use: rarely Drug use: none - Family History Father Adopted: No Family Member Ethnicity: Non- Living Status: Hx Family Cardiac Disorders: No Hx Family Respiratory Disorders: Yes (Emphysema) Hx Family Cancer: No Hx Family GI Disorders: No Hx Family Endocrine Disorder: No Hx Family Neuromuscular Disorders: No Hx Family Neurologic Disorders: No Hx Family HEENT Disorders: No Hx Family Autoimmune Disorders: No Mother Adopted: No Family Member Ethnicity: Non- Living Status: Hx Family Cardiac Disorders: No Hx Family Respiratory Disorders: Yes (Emphysema) Hx Family Cancer: Yes (Lung) Hx Family GI Disorders: No Hx Family Endocrine Disorder: No Hx Family Neuromuscular Disorders: No Hx Family Neurologic Disorders: No Hx Family HEENT Disorders: No Hx Family Autoimmune Disorders: No Medications and Allergies Furosemide [Lasix] 40 mg PO BID #0 01/17/15 [History] Potassium Chloride [K-Tab ER] 20 meq PO BID #0 01/17/15 [History] Simvastatin [Zocor] 80 mg PO HS #0 01/17/15 [History] Albuterol Sulfate [Albuterol Inhaler] 2 puff IH Q6HR PRN 01/18/15 [History] Budesonide/Formoterol 160/4.5 [Symbicort] 2 puff IH BIDR 01/18/15 [History] Ipratropium/Albuterol Neb [Duoneb] 3 ml IH Q4H PRN 01/18/15 [History] Spironolactone [Aldactone] 12.5 mg PO DAILY 01/18/15 [History] Carvedilol [Coreg] 12.5 mg PO BID 06/07/16 [History] Cholecalciferol (D-3) [Vitamin D] 1,000 unit PO BID 06/07/16 [History] Oxygen 2 l NS AD 06/16/16 [History] Sotalol HCl [Betapace] 160 mg PO BID #60 tablet 06/18/16 [Rx] Aspirin Enteric Coated [Aspirin EC] 81 mg PO DAILY 07/01/16 [History] LORazepam [Ativan] 0.25 mg PO DAILY 07/01/16 [History] Magic Mouthwash 10 ml PO QID PRN 07/01/16 [History] Omeprazole [PriLOSEC] 20 mg PO DAILY 07/01/16 [History] Ondansetron HCl [Zofran] 4 mg PO Q6H PRN 07/01/16 [History] Prochlorperazine Maleate [Compazine] 10 mg PO Q6H PRN 07/01/16 [History] Propylene Glycol/Peg 400 [Systane 0.3-0.4% Eye Drops] 1 drop BOTH EYES QAM 07/01 [History] Allergies codeine Adverse Reaction (Verified 07/01/16 19:08) Nausea All Systems Review: A 10-system review of systems was performed and is negative for pertinent findings except as documented above in the HPI. Physical Examination Vital Signs, Last 4 Hours Temp Pulse Resp BP 07/02/16 07:56 97.5 F L 72 12 93/69 07/02/16 07:00 70 General: Conversant, No Apparent Distress HEENT: Atraumatic, Normocephaly, Mucus Membranes Moist Neck: No JVD, Normal carotid pulses Cardiac: Reg Rate and Rhythm, Normal S1 and S2, No Murmur, Other (irregular at times) Lungs: Normal Breath Sounds, No Wheeze, Rales, Rhonchi Neuro: Alert and responsive, No focal deficits noted Abdomen: Soft, Non-Tender Skin: No rashes noted on visualized skin Musculoskeletal: No Chest Wall Tenderness Extremities: No Clubbing, No Cyanosis, No Edema, Normal Pulses Results 07/02/16 03:22 07/02/16 03:22 Lab Results 07/02/16 07/02/16 07/02/16 03:22 03:22 03:22 WBC 6.1 Hgb 10.2 L Hct 30.0 L Plt Count 165 INR 1.0 Sodium Potassium Chloride Carbon Dioxide BUN Creatinine Glucose Calcium Magnesium Troponin I 0.01 07/02/16 07/02/16 03:22 08:40 WBC Hgb Hct Plt Count INR Sodium 138 Potassium 3.8 Chloride 102 Carbon Dioxide 28 BUN 9 Creatinine 0.73 Glucose 98 Calcium 8.4 L Magnesium 3.4 H Troponin I 0.01 - Imaging and Cardiology Echo: report reviewed Cardiac cath: report reviewed - EKG Interpretation EKG results cardiology: personally reviewed Consult Discharge Plan - Plan Referrals: Susan Navarro [Primary Care Provider] -
[2016-07-02] MEDS: Budesonide/Formoterol 160/4.5 MDI IH SCH ×2 (11:44→20:04)
--- NOTE | 2016-07-02 13:34 | Electrocardiograph Report ---
[address] [address] Test Date: 2016-07-01 Pat Name: Isai Latif Department: 103 Room: 2N06 Gender: M Program Officer: HAS : 1945 Requested By: Andre Chaudhari Order Number: [id number] Reading MD: Shahzad Wolf Measurements Intervals [place] Rate: 97 P: 20 MI: 165 QRS: 128 QRSD: 150 T: 23 QT: 435 QTc: 490 Interpretive Statements ELECTRONIC ATRIAL PACEMAKER ELECTRONIC VENTRICULAR PACEMAKER ABNORMAL RHYTHM ECG Electronically Signed On 07-02-2016 13:32:43 EDT by Shahzad Wolf
--- NOTE | 2016-07-02 17:57 | Internal Med Progress Note ---
Addendum entered and electronically signed by Erma Corley MD 07/02/16 20:15: Original Note: Date of Encounter: 07/02/16 Time of Encounter: 10:00 - Assessment and plan (1) Ventricular tachycardia Current Visit: Yes Status: Acute Assessment and plan: appreciate cardiology input. stop sotalol. start amiodarone tomorrow afternoon. monitoring analyst. continue coreg. (2) Ischemic cardiomyopathy Current Visit: No Status: Chronic Assessment and plan: stable. continue home meds. (3) COPD (chronic obstructive pulmonary disease) Current Visit: No Status: Chronic Assessment and plan: stable. continue home meds. Qualifiers: COPD type: chronic bronchitis Chronic bronchitis type: simple Qualified Code(s): J41.0 - Simple chronic bronchitis (4) Coronary artery disease Current Visit: No Status: Chronic Assessment and plan: stable. continue home meds. Qualifiers: Coronary Disease-Associated Artery/Lesion type: bypass graft [place] vs. transplanted heart: [place] heart Associated angina: without angina Qualified Code(s): I25.810 - Atherosclerosis of coronary artery bypass graft(s) without angina pectoris (5) Hypokalemia Current Visit: Yes Status: Acute Assessment and plan: replete. continue oral supplement. - Subjective Interval history: patient denies any chest pain, dizziness, shortness of breath, lightheadedness or palpitations. - Constitutional Vitals: Temp Pulse Resp BP Pulse Ox 98.0 F 80 16 85/60 99 07/02/16 15:00 07/02/16 15:00 07/02/16 15:00 07/02/16 15:00 07/02/16 15:00 General appearance: Present: cooperative, A&O X 3, pleasant, no acute distress, answers questions appropriately - Neck Neck exam general surgery: Present: supple, trachea midline. Absent: lymphadenopathy - Respiratory Respiratory exam: Present: CTAB - Cardiovascular Cardiovascular exam: Present: RRR - GI/Abdominal GI/Abdominal exam: Present: normal bowel sounds, soft. Absent: distended, tenderness - Extremities Exam Extremities exam: Absent: pedal edema - Neurological Exam Neurological exam: Present: alert, oriented X3, no focal deficits, strengths equal and symetr throughout. Absent: facial droop, speech deficit - Skin Skin exam: Absent: rash Internal Medicine: Result - Labs CBC & Chem 7: 07/02/16 03:22 07/02/16 03:22 Labs: Short CBC 07/02/16 Range/Units 03:22 WBC 6.1 (4.3-11.1) K/mcL Hgb 10.2 L (12.9-16.9) g/dL Hct 30.0 L (37.5-50.1) % Plt Count 165 (140-400) K/mcL Neutrophils # 4.1 (1.6-8.9) K/mcL BMP 07/02/16 03:22 Sodium 138 Potassium 3.8 Chloride 102 Carbon Dioxide 28 BUN 9 Creatinine 0.73 Glucose 98 Calcium 8.4 L Cardiac Enzymes 07/02/16 07/02/16 Range/Units 03:22 08:40 Troponin I 0.01 0.01 (0-0.03) ng/mL - ABG Interpretation ABG results: PT/INR, D-dimer PT 11.2 Seconds (9.4-12.1) 07/02/16 03:22 Consult Discharge Plan - Plan Referrals: Susan Navarro [Primary Care Provider] -
[2016-07-03] MEDS: *HR* Heparin 5,000 UNIT/ML VIAL SQ SCH ×2 (06:16→18:46)
[2016-07-03] MEDS: Budesonide/Formoterol 160/4.5 MDI IH SCH (08:17)
[2016-07-03] MEDS: Aspirin Enteric Coated 81 MG Tablet PO SCH (09:12)
[2016-07-03] MEDS: Furosemide 40 MG TABLET PO SCH ×2 (09:12→20:46)
[2016-07-03] MEDS: Spironolactone 25 MG TABLET PO SCH (09:12)
[2016-07-03] MEDS: Cholecalciferol (D-3) 1,000 UNIT TABLET PO SCH ×2 (09:13→20:46)
[2016-07-03] MEDS: *HR* Amiodarone 200 MG TABLET PO SCH ×2 (12:31→20:46)
[2016-07-03] MEDS ORDERED: Levalbuterol Neb 0.63 MG/3 ML IH SCH ×2 (13:00→18:00)
[2016-07-03] MEDS: Levalbuterol Neb 0.63 MG/3 ML IH SCH ×3 (15:23→21:03)
--- NOTE | 2016-07-03 15:29 | Internal Med Progress Note ---
Date of Encounter: 07/03/16 Time of Encounter: 08:00 - Assessment and plan (1) Ventricular tachycardia Current Visit: Yes Status: Acute Assessment and plan: patient is asymptomatic. no telemetry events overnight. Appreciate cardiology input. stop sotalol. start amiodarone today afternoon. monitoring analyst. continue coreg. (2) Ischemic cardiomyopathy Current Visit: No Status: Chronic Assessment and plan: stable. continue home meds. (3) Chronic systolic heart failure Current Visit: No Status: Acute Assessment and plan: compensated. continue home meds. (4) COPD (chronic obstructive pulmonary disease) Current Visit: No Status: Chronic Assessment and plan: stable. continue home meds. Qualifiers: COPD type: chronic bronchitis Chronic bronchitis type: simple Qualified Code(s): J41.0 - Simple chronic bronchitis (5) Coronary artery disease Current Visit: No Status: Chronic Assessment and plan: stable. continue home meds. Qualifiers: Coronary Disease-Associated Artery/Lesion type: bypass graft [place] vs. transplanted heart: [place] heart Associated angina: without angina Qualified Code(s): I25.810 - Atherosclerosis of coronary artery bypass graft(s) without angina pectoris (6) Hypokalemia Current Visit: Yes Status: Acute Assessment and plan: replete. continue oral supplement. - Subjective Interval history: Patient denies any chest pain, dizziness, shortness of breath, lightheadedness or palpitations. - Constitutional Vitals: Temp Pulse Resp BP Pulse Ox 98.8 F 71 14 88/59 98 07/03/16 10:35 07/03/16 14:13 07/03/16 13:50 07/03/16 13:50 07/03/16 13:50 General appearance: Present: cooperative, A&O X 3, pleasant, no acute distress, answers questions appropriately - Neck Neck exam general surgery: Present: supple, trachea midline. Absent: lymphadenopathy - Respiratory Respiratory exam: Present: CTAB - Cardiovascular Cardiovascular exam: Present: RRR - GI/Abdominal GI/Abdominal exam: Present: distended, normal bowel sounds, soft. Absent: tenderness - Extremities Exam Extremities exam: Absent: pedal edema - Back Exam Back exam: Absent: CVA tenderness (L), CVA tenderness (R) - Neurological Exam Neurological exam: Present: alert, oriented X3, no focal deficits. Absent: facial droop, speech deficit - Skin Skin exam: Absent: rash Internal Medicine: Result - Labs CBC & Chem 7: 07/02/16 03:22 05 03:22 - ABG Interpretation ABG results: PT/INR, D-dimer PT 11.2 Seconds (9.4-12.1) 07/02/16 03:22 Consult Discharge Plan - Plan Referrals: Susan Navarro [Primary Care Provider] -
--- NOTE | 2016-07-03 16:07 | Cardiology Progress Note ---
Date of Encounter: 07/03/16 Time of Encounter: 15:30 Assessment and Plan (1) Ventricular tachycardia Current Visit: Yes Status: Acute Presents with presyncope. Found to have re-current frequent episodes of NSVT. Device check showed 11 NSVT episodes successfully treated with ATP. There was a total of 502 small runs of NSVT seen since 06/16/16. Atrial paced 89.1%. V paced 85.8%. Troponin negative x3. EKG shows atrial pacing and frequent PVC/ PAC. SR underlying. Recent cardiac testing: SAM completed for valvular heart disease 03/19/16-EF 40%, global hypokenesis with regional variations. Normal RV size and function, linear echo density in consistent with pacer lead seen in right atrium. severely dilated LA. Anterior mitral valve leaflet mildly thickened. Restricted motion of posterior mitral valve leaflet. Mod-severe MR, which is eccentric. Mild TR. There is a small PFO. TTE-06/17/16- Echo rechecked. EF 40%, mild-moderate eccentric MR, mild-moderate TR. [facility] 02/2013- Bypass grafts patent. Recent attempt at increasing sotalol therapy. Initially he improved. Findings reviewed with Dr. Shahzad Wolf. Hold sotalol 48 hr to allow wash out. Last dose 1200 07/01/16; will start oral amiodarone today, 200 mg BID. Decrease to 200 mg daily after 1 month. Continue to monitor tele; keep K >4.0, Mag >2.0. (2) ICD (implantable cardioverter-defibrillator) in place Current Visit: Yes Status: Acute ICD check on chart. See plan above. (3) Coronary artery disease Current Visit: No Status: Chronic Status post CABG approximately 15 years ago. [facility] 2013 showed patent bypass grafts. Continue asa, statin, and bb. Qualifiers: Coronary Disease-Associated Artery/Lesion type: bypass graft [place] vs. transplanted heart: [place] heart Associated angina: without angina Qualified Code(s): I25.810 - Atherosclerosis of coronary artery bypass graft(s) without angina pectoris (4) Ischemic cardiomyopathy Current Visit: No Status: Chronic Most recent EF is 40% with global systolic dysfunction. Currently euvolemic on exam. Laying flat without distress. Continue carvedilol. No zayra inhibitor d/t hypotension. Low sodium diet and daily weights. Discussion w patient/family: The assessment and plan as outlined above was discussed with the patient and/or family members who expressed understanding and agreement. All questions were answered. Thank you for involving us in the care of your patient. Please call with any questions. The patient will be discussed and reviewed with Dr. Nelia Wolf; changes to be made accordingly. Subjective Principal diagnosis: NSVT Interval history: Seen and examined. Episodes of NSVT this AM--felt "warm" during episodes. Denies ICD shocks today. Denies chest pain or discomfort, dyspnea, palpitations, or any other CV symptoms. Objective Vital Signs, Last 4 Hours Pulse Resp BP Pulse Ox 07/03/16 14:13 71 07/03/16 13:50 71 14 88/59 98 07/03/16 12:45 76 General: Conversant, No Apparent Distress HEENT: Atraumatic, Normocephaly, Mucus Membranes Moist Cardiac: Reg Rate and Rhythm, Normal S1 and S2 Lungs: Normal Breath Sounds Neuro: Alert and responsive Abdomen: Soft Skin: No rashes noted on visualized skin Musculoskeletal: No Chest Wall Tenderness Extremities: No Edema, Normal Pulses Results 07/02/16 03:22 07/02/16 03:22 - Imaging and Cardiology Echo: report reviewed Cardiac cath: report reviewed Other Results: 12 hour tele: avg HR=77 paced. Episodes of NSVT this AM. - EKG Interpretation EKG results cardiology: personally reviewed Consult Discharge Plan - Plan Referrals: Susan Navarro [Primary Care Provider] -
[2016-07-03] MEDS: *HR* LORazepam 1 MG TABLET PO PRN (18:46)
[2016-07-04] MEDS: *HR* LORazepam 1 MG TABLET PO PRN ×3 (01:03→21:02)
[2016-07-04 03:49] LABS: Basophils % 0.5 %; Eosinophils # 0.1 K/mcL (0.0-0.6); Eosinophils % 2.1 %; Hemoglobin 10.7 g/dL (12.9-16.9); Immature Granulocytes % 0.3 % (0-4); Lymphocytes # 1.3 K/mcL (0.6-4.6); Lymphocytes % 19.2 %; Mean Corpuscular HGB Conc 33.4 g/dL (31.6-35.5); Mean Corpuscular Hemoglobin 31.4 pg (28.0-33.3); Mean Corpuscular Volume 93.8 fL (83.0-100.0); Mean Platelet Volume 10.7 fL (9.4-12.4); Monocytes # 0.5 K/mcL (0.0-1.3); Neutrophils # 4.7 K/mcL (1.6-8.9); Platelet Count 174 K/mcL (140-400); Red Blood Count 3.41 M/mcL (4.19-5.50); Red Cell Distribution Width 14.1 % (11.5-14.5); Segmented Neutrophils % 70.9 %
[2016-07-04] MEDS: Levalbuterol Neb 0.63 MG/3 ML IH SCH ×4 (03:55→22:56)
[2016-07-04 04:00] LABS: BUN/Creatinine Ratio 13 (6-26); Blood Urea Nitrogen 10 mg/dL (8-26); Calcium 8.9 mg/dL (8.6-10.8); Carbon Dioxide 30 mEq/L (19-29); Chloride 97 mEq/L (98-109); Glucose 99 mg/dL (70-99); Osmolality,Calculated 281 (280-300); Potassium 3.9 mEq/L (3.5-4.5); Sodium 136 mEq/L (136-145); eGFR For African Americans > 60 (> 60); eGFR For Non-African Americans > 60 (> 60)
[2016-07-04] MEDS: *HR* Heparin 5,000 UNIT/ML VIAL SQ SCH ×2 (06:06→17:50)
[2016-07-04] MEDS: Aspirin Enteric Coated 81 MG Tablet PO SCH (08:14)
[2016-07-04] MEDS: Cholecalciferol (D-3) 1,000 UNIT TABLET PO SCH ×2 (08:14→21:02)
[2016-07-04] MEDS: *HR* Amiodarone 200 MG TABLET PO SCH ×2 (08:14→21:00)
[2016-07-04] MEDS: Furosemide 40 MG TABLET PO SCH ×2 (08:14→21:01)
[2016-07-04] MEDS: Spironolactone 25 MG TABLET PO SCH (08:15)
--- NOTE | 2016-07-04 09:22 | Cardiology Progress Note ---
Date of Encounter: 07/04/16 Time of Encounter: 07:50 Assessment and Plan (1) Ventricular tachycardia Current Visit: Yes Status: Acute Presents with presyncope. Found to have re-current frequent episodes of NSVT. Device check showed 11 NSVT episodes successfully treated with ATP. There was a total of 502 small runs of NSVT seen since 06/16/16. Atrial paced 89.1%. V paced 85.8%. Troponin negative x3. EKG shows atrial pacing and frequent PVC/ PAC. SR underlying. Recent cardiac testing: SAM completed for valvular heart disease 03/19/16-EF 40%, global hypokenesis with regional variations. Normal RV size and function, linear echo density in consistent with pacer lead seen in right atrium. severely dilated LA. Anterior mitral valve leaflet mildly thickened. Restricted motion of posterior mitral valve leaflet. Mod-severe MR, which is eccentric. Mild TR. There is a small PFO. TTE-06/17/16- Echo rechecked. EF 40%, mild-moderate eccentric MR, mild-moderate TR. [facility] 02/2013- Bypass grafts patent. Recent attempt at increasing sotalol therapy. Initially he improved, sotalol d/c 'ed upon admission; last dose 1200 07/01/16. Oral amiodarone started on 07/03/16--continues to have multiple episodes of NSVT- -will increase Amiodarone to 400 mg BID today. Continue to monitor tele; keep K >4.0, Mag >2.0. (2) ICD (implantable cardioverter-defibrillator) in place Current Visit: Yes Status: Acute ICD check on chart. See plan above. (3) Coronary artery disease Current Visit: No Status: Chronic Status post CABG approximately 15 years ago. [facility] 2013 showed patent bypass grafts. Continue asa, statin, and bb. Qualifiers: Coronary Disease-Associated Artery/Lesion type: bypass graft [place] vs. transplanted heart: [place] heart Associated angina: without angina Qualified Code(s): I25.810 - Atherosclerosis of coronary artery bypass graft(s) without angina pectoris (4) Ischemic cardiomyopathy Current Visit: No Status: Chronic Most recent EF is 40% with global systolic dysfunction. Currently euvolemic on exam. Laying flat without distress. Continue carvedilol. No zayra inhibitor d/t hypotension. Low sodium diet and daily weights. Discussion w patient/family: The assessment and plan as outlined above was discussed with the patient and/or family members who expressed understanding and agreement. All questions were answered. Thank you for involving us in the care of your patient. Please call with any questions. The patient will be discussed and reviewed with Dr. Shahzad Wolf; changes to be made accordingly. Subjective Principal diagnosis: NSVT Interval history: Seen and examined. Admitted s/p syncopal episodes d/t multiple episodes of ATP for NSVT. Continues to have multiple episodes of NSVT. He is symptomatic with episodes, "feels warm all over." Denies ICD shock/fire. States episodes have been less frequent overnight and today. He denies any other symptoms including chest pain or discomfort, dyspnea, or edema. Objective Vital Signs, Last 4 Hours Temp Pulse BP Pulse Ox 07/04/16 08:48 97.8 F 69 93/68 98 07/04/16 08:29 72 General: Conversant, Other (thin, frail) HEENT: Atraumatic, Normocephaly Cardiac: Reg Rate and Rhythm, Normal S1 and S2 Lungs: Normal Breath Sounds Neuro: Alert and responsive Abdomen: Soft Skin: No rashes noted on visualized skin Musculoskeletal: No Chest Wall Tenderness Extremities: No Edema, Normal Pulses Results 07/04/16 03:25 07/04/16 03:25 Lab Results 07/04/16 07/04/16 03:25 03:25 WBC 6.6 Hgb 10.7 L Hct 32.0 L Plt Count 174 Sodium 136 Potassium 3.9 Chloride 97 L Carbon Dioxide 30 H BUN 10 Creatinine 0.75 Glucose 99 Calcium 8.9 Magnesium 2.0 Active Medications Acetaminophen (Tylenol) 650 mg PO Q6HR PRN PRN Reason: Mild Pain (1-3) Stop: 12/31/16 22:15 Amiodarone HCl (Cordarone) 200 mg PO ONCE ONE Stop: 07/04/16 10:01 Amiodarone HCl (Cordarone) 400 mg PO BID [facility] Stop: 01/03/17 21:01 Artificial Tears (Akwa Tears) 1 drop BOTH EYES QID PRN; Protocol PRN Reason: Dry Eye(s) Stop: 01/01/17 07:52 Last Admin: 07/02/16 09:10 Dose: 1 drop Aspirin (Aspirin Ec) 81 mg PO DAILY [facility] Stop: 01/01/17 09:01 Last Admin: 07/04/16 08:14 Dose: 81 mg Atorvastatin Calcium (Lipitor) 40 mg PO HS [facility] Stop: 01/02/17 21:01 Last Admin: 07/03/16 20:46 Dose: 40 mg Carvedilol (Coreg) 12.5 mg PO BIDWM JULI[facility]TE PRN Reason: Protocol Stop: 01/01/17 09:01 Last Admin: 07/04/16 08:14 Dose: 12.5 mg Furosemide (Lasix) 40 mg PO BID [facility] Stop: 01/01/17 09:01 Last Admin: 07/04/16 08:14 Dose: 40 mg Heparin Sodium (Porcine) (Heparin) 5,000 unit SQ Q12HCO [facility] Stop: 01/01/17 06:01 Last Admin: 07/04/16 06:06 Dose: 5,000 unit Levalbuterol HCl (Xopenex) 0.63 mg IH [id number] [facility] Stop: 01/02/17 13:01 Last Admin: 07/04/16 03:55 Dose: 0.63 mg Lorazepam (Ativan) 1 mg PO QID PRN PRN Reason: Anxiety Stop: 01/02/17 07:32 Last Admin: 07/04/16 01:03 Dose: 1 mg Naloxone HCl (Narcan) 0.4 mg IVP Q2MIN PRN PRN Reason: Opioid Reversal Stop: 12/31/16 22:15 Omeprazole (Prilosec) 20 mg PO DAILY@0730 [facility] PRN Reason: Protocol Stop: 01/01/17 09:01 Last Admin: 07/04/16 08:14 Dose: 20 mg Ondansetron HCl (Zofran) 4 mg IVP Q8HR PRN PRN Reason: Nausea And Vomiting Stop: 12/31/16 22:15 Oxycodone HCl (Roxicodone) 5 mg PO Q6HR PRN PRN Reason: Moderate Pain (4-6) Stop: 12/31/16 22:15 Potassium Chloride (Potassium Chloride) 20 meq PO BID [facility] Stop: 01/01/17 09:01 Last Admin: 07/04/16 08:14 Dose: 20 meq Spironolactone (Aldactone) 12.5 mg PO DAILY [facility] Stop: 01/01/17 09:01 Last Admin: 05/14/17 08:15 Dose: 12.5 mg Vitamin D (Vitamin D) 1,000 unit PO BID [facility] Stop: 01/01/17 09:01 Last Admin: 07/04/16 08:14 Dose: 1,000 unit - Imaging and Cardiology Echo: report reviewed Other Results: 12 hour tele: avg HR=83 paced. Multiple episodes of NSVT. - EKG Interpretation EKG results cardiology: personally reviewed Consult Discharge Plan - Plan Referrals: Susan Navarro [Primary Care Provider] -
[2016-07-04] MEDS ORDERED: *HR* Amiodarone 200 MG TABLET PO ONE (10:00)
--- NOTE | 2016-07-04 16:49 | Internal Med Progress Note ---
Date of Encounter: 07/04/16 Time of Encounter: 12:00 - Assessment and plan (1) Ventricular tachycardia Current Visit: Yes Status: Acute Assessment and plan: She had episodes of nonsustained V. tach this morning. Appreciate cardiology input. amiodarone increased to 400 twice a day. 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 (2) Ischemic cardiomyopathy Current Visit: No Status: Chronic Assessment and plan: stable. continue home meds. (3) Chronic systolic heart failure Current Visit: No Status: Acute Assessment and plan: compensated. continue home meds. (4) COPD (chronic obstructive pulmonary disease) Current Visit: No Status: Chronic Assessment and plan: stable. continue home meds. Qualifiers: COPD type: chronic bronchitis Chronic bronchitis type: simple Qualified Code(s): J41.0 - Simple chronic bronchitis (5) Coronary artery disease Current Visit: No Status: Chronic Assessment and plan: stable. continue home meds. Qualifiers: Coronary Disease-Associated Artery/Lesion type: bypass graft [place] vs. transplanted heart: [place] heart Associated angina: without angina Qualified Code(s): I25.810 - Atherosclerosis of coronary artery bypass graft(s) without angina pectoris - Subjective Interval history: Patient aware of episode of nonsustained V. tach earlier this morning and yesterday. No chest pain, dizziness, or lightheadedness. - Constitutional Vitals: Temp Pulse Resp BP Pulse Ox 97.7 F 72 18 90/62 96 07/04/16 11:05 07/04/16 11:05 07/04/16 11:05 07/04/16 11:05 07/04/16 11:05 General appearance: Present: cooperative, A&O X 3, pleasant, no acute distress, answers questions appropriately - Neck Neck exam general surgery: Present: supple, trachea midline. Absent: lymphadenopathy - Respiratory Respiratory exam: Present: CTAB - Cardiovascular Cardiovascular exam: Present: RRR - GI/Abdominal GI/Abdominal exam: Present: normal bowel sounds, soft. Absent: distended, tenderness - Extremities Exam Extremities exam: Absent: pedal edema - Back Exam Back exam: Absent: CVA tenderness (L), CVA tenderness (R) - Neurological Exam Neurological exam: Present: alert, oriented X3, no focal deficits, strengths equal and symetr throughout. Absent: facial droop, speech deficit - Skin Skin exam: Absent: rash Internal Medicine: Result - Labs CBC & Chem 7: 07/04/16 03:25 07/04/16 03:25 Labs: Short CBC 07/04/16 Range/Units 03:25 WBC 6.6 (4.3-11.1) K/mcL Hgb 10.7 L (12.9-16.9) g/dL Hct 32.0 L (37.5-50.1) % Plt Count 174 (140-400) K/mcL Neutrophils # 4.7 (1.6-8.9) K/mcL BMP 07/04/16 03:25 Sodium 136 Potassium 3.9 Chloride 97 L Carbon Dioxide 30 H BUN 10 Creatinine 0.75 Glucose 99 Calcium 8.9 - ABG Interpretation ABG results: PT/INR, D-dimer PT 11.2 Seconds (9.4-12.1) 07/02/16 03:22 Consult Discharge Plan - Plan Referrals: Susan Navarro [Primary Care Provider] -
[2016-07-05] MEDS: Levalbuterol Neb 0.63 MG/3 ML IH SCH ×4 (04:11→21:03)
[2016-07-05 04:52] LABS: BUN/Creatinine Ratio 16 (6-26); Blood Urea Nitrogen 13 mg/dL (8-26); Calcium 9.2 mg/dL (8.6-10.8); Carbon Dioxide 29 mEq/L (19-29); Chloride 99 mEq/L (98-109); Glucose 111 mg/dL (70-99); Magnesium 2.3 mg/dL (1.6-2.6); Osmolality,Calculated 285 (280-300); Potassium 4.1 mEq/L (3.5-4.5); Sodium 137 mEq/L (136-145); eGFR For African Americans > 60 (> 60); eGFR For Non-African Americans > 60 (> 60)
[2016-07-05] MEDS: *HR* Heparin 5,000 UNIT/ML VIAL SQ SCH ×2 (05:30→18:01)
[2016-07-05] MEDS: Spironolactone 25 MG TABLET PO SCH (08:03)
[2016-07-05] MEDS: *HR* Amiodarone 200 MG TABLET PO SCH ×2 (08:03→20:16)
--- NOTE | 2016-07-05 09:03 | Cardiology Progress Note ---
Date of Encounter: 07/05/16 Time of Encounter: 08:50 Assessment and Plan (1) Ventricular tachycardia Current Visit: Yes Status: Acute Presented with presyncope. Found to have re-current frequent episodes of NSVT on device check. Device check showed 11 NSVT episodes successfully treated with ATP. There was a total of 502 small runs of NSVT seen since 06/16/16. Atrial paced 89.1%. V paced 85.8%. Troponin negative x3. EKG shows atrial pacing and frequent PVC/ PAC. SR underlying. Recent cardiac testing: SAM completed for valvular heart disease 03/19/16-EF 40%, global hypokenesis with regional variations. Normal RV size and function, linear echo density in consistent with pacer lead seen in right atrium. severely dilated LA. Anterior mitral valve leaflet mildly thickened. Restricted motion of posterior mitral valve leaflet. Mod-severe MR, which is eccentric. Mild TR. There is a small PFO. TTE-06/17/16- Echo rechecked. EF 40%, mild-moderate eccentric MR, mild-moderate TR. [facility] 02/2013- Bypass grafts patent. Recent attempt at increasing sotalol therapy. Initially he improved, sotalol d/c 'ed upon admission; last dose 1200 07/01/16. Oral amiodarone started on 07/03/16; increased dose to 400 mg BID on 07/04/16. Episodes of NSVT significantly improved overnight. Continue to monitor tele; keep K >4.0, Mag >2.0. (2) ICD (implantable cardioverter-defibrillator) in place Current Visit: Yes Status: Acute ICD check on chart. See plan above. (3) Coronary artery disease Current Visit: No Status: Chronic Status post CABG approximately 15 years ago. [facility] 2013 showed patent bypass grafts. Continue asa, statin, and bb. Denies chest pain or discomfort. Troponin negative x3. Qualifiers: Coronary Disease-Associated Artery/Lesion type: bypass graft [place] vs. transplanted heart: [place] heart Associated angina: without angina Qualified Code(s): I25.810 - Atherosclerosis of coronary artery bypass graft(s) without angina pectoris (4) Ischemic cardiomyopathy Current Visit: No Status: Chronic Most recent EF is 40% with global systolic dysfunction. Currently euvolemic on exam. Laying flat without distress. Continue carvedilol. No zayra inhibitor d/t hypotension. Low sodium diet and daily weights. Discussion w patient/family: The assessment and plan as outlined above was discussed with the patient and/or family members who expressed understanding and agreement. All questions were answered. Thank you for involving us in the care of your patient. Please call with any questions. The patient will be discussed and reviewed with Dr. Dodge; changes to be made accordingly. Subjective Principal diagnosis: NSVT Interval history: Seen and examined. Admitted s/p syncopal episodes d/t multiple episodes of ATP for NSVT. Frequency and severity of NSVT episodes have improved. He is symptomatic with episodes, "feels warm all over." Denies ICD shock/fire. States episodes have been less frequent overnight and today. He denies any other symptoms including chest pain or discomfort, dyspnea, or edema. Objective Vital Signs, Last 4 Hours Temp Pulse Resp BP Pulse Ox 07/05/16 08:00 98 07/05/16 07:24 97.8 F 96 17 92/57 97 General: Conversant, Other (thin, frail) HEENT: Atraumatic, Normocephaly Cardiac: Reg Rate and Rhythm, Normal S1 and S2 Lungs: Normal Breath Sounds Neuro: Alert and responsive Abdomen: Soft Skin: No rashes noted on visualized skin Musculoskeletal: No Chest Wall Tenderness Extremities: No Edema, Normal Pulses Results 07/04/16 03:25 07/05/16 04:02 Lab Results 07/05/16 04:02 Sodium 137 Potassium 4.1 Chloride 99 Carbon Dioxide 29 BUN 13 Creatinine 0.81 Glucose 111 H Calcium 9.2 Magnesium 2.3 Active Medications Acetaminophen (Tylenol) 650 mg PO Q6HR PRN PRN Reason: Mild Pain (1-3) Stop: 12/31/16 22:15 Amiodarone HCl (Cordarone) 400 mg PO BID [facility] Stop: 01/03/17 21:01 Last Admin: 07/05/16 08:03 Dose: 400 mg Artificial Tears (Akwa Tears) 1 drop BOTH EYES QID PRN; Protocol PRN Reason: Dry Eye(s) Stop: 01/01/17 07:52 Last Admin: 07/02/16 09:10 Dose: 1 drop Aspirin (Aspirin Ec) 81 mg PO DAILY [facility] Stop: 01/01/17 09:01 Last Admin: 07/04/16 08:14 Dose: 81 mg Atorvastatin Calcium (Lipitor) 40 mg PO HS [facility] Stop: 01/02/17 21:01 Last Admin: 07/04/16 21:01 Dose: 40 mg Carvedilol (Coreg) 12.5 mg PO BIDWM JULIETTE PRN Reason: Protocol Stop: 01/01/17 09:01 Last Admin: 07/05/16 08:03 Dose: 12.5 mg Furosemide (Lasix) 40 mg PO BID [facility] Stop: 01/01/17 09:01 Last Admin: 07/04/16 21:01 Dose: 40 mg Heparin Sodium (Porcine) (Heparin) 5,000 unit SQ Q12HCO [facility] Stop: 01/01/17 06:01 Last Admin: 07/05/16 05:30 Dose: 5,000 unit Levalbuterol HCl (Xopenex) 0.63 mg IH O2YNVEY [facility] Stop: 01/02/17 13:01 Last Admin: 07/05/16 04:11 Dose: 0.63 mg Lorazepam (Ativan) 1 mg PO QID PRN PRN Reason: Anxiety Stop: 01/02/17 07:32 Last Admin: 07/04/16 21:02 Dose: 1 mg Naloxone HCl (Narcan) 0.4 mg IVP Q2MIN PRN PRN Reason: Opioid Reversal Stop: 12/31/16 22:15 Omeprazole (Prilosec) 20 mg PO DAILY@0730 [facility] PRN Reason: Protocol Stop: 01/01/17 09:01 Last Admin: 07/04/16 08:14 Dose: 20 mg Ondansetron HCl (Zofran) 4 mg IVP Q8HR PRN PRN Reason: Nausea And Vomiting Stop: 12/31/16 22:15 Oxycodone HCl (Roxicodone) 5 mg PO Q6HR PRN PRN Reason: Moderate Pain (4-6) Stop: 12/31/16 22:15 Potassium Chloride (Potassium Chloride) 20 meq PO BID [facility] Stop: 01/01/17 09:01 Last Admin: 07/04/16 21:01 Dose: 20 meq Spironolactone (Aldactone) 12.5 mg PO DAILY [facility] Stop: 01/01/17 09:01 Last Admin: 07/05/16 08:03 Dose: 12.5 mg Vitamin D (Vitamin D) 1,000 unit PO BID [facility] Stop: 01/01/17 09:01 Last Admin: 07/04/16 21:02 Dose: 1,000 unit - Imaging and Cardiology Echo: report reviewed Other Results: 12 hour tele: avg HR 98. Frequent episodes of NSVT - EKG Interpretation EKG results cardiology: personally reviewed Consult Discharge Plan - Plan Referrals: Susan Navarro [Primary Care Provider] -
[2016-07-05] MEDS: Aspirin Enteric Coated 81 MG Tablet PO SCH (10:05)
[2016-07-05] MEDS: Furosemide 40 MG TABLET PO SCH ×2 (10:05→20:16)
[2016-07-05] MEDS: Cholecalciferol (D-3) 1,000 UNIT TABLET PO SCH ×2 (10:05→20:16)
--- NOTE | 2016-07-05 16:48 | Internal Med Progress Note ---
Date of Encounter: 07/05/16 Time of Encounter: 09:45 - Assessment and plan (1) Ventricular tachycardia Current Visit: Yes Status: Acute Assessment and plan: She had fewer and shorter episodes of nonsustained V. tach this morning. Appreciate cardiology input. 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 (2) Ischemic cardiomyopathy Current Visit: No Status: Chronic Assessment and plan: stable. continue home meds. (3) Chronic systolic heart failure Current Visit: No Status: Acute Assessment and plan: compensated. continue home meds. (4) COPD (chronic obstructive pulmonary disease) Current Visit: No Status: Chronic Assessment and plan: stable. continue home meds. Qualifiers: COPD type: chronic bronchitis Chronic bronchitis type: simple Qualified Code(s): J41.0 - Simple chronic bronchitis (5) Coronary artery disease Current Visit: No Status: Chronic Assessment and plan: stable. continue home meds. Qualifiers: Coronary Disease-Associated Artery/Lesion type: bypass graft [place] vs. transplanted heart: [place] heart Associated angina: without angina Qualified Code(s): I25.810 - Atherosclerosis of coronary artery bypass graft(s) without angina pectoris - Subjective Interval history: Patient had a few short episodes of nsvt earlier this morning.. No chest pain, dizziness, or lightheadedness. - Constitutional Vitals: Temp Pulse Resp BP Pulse Ox 97.9 F 61 17 92/66 97 07/05/16 15:22 07/05/16 15:22 07/05/16 15:22 07/05/16 15:22 07/05/16 15:22 General appearance: Present: cooperative, A&O X 3, pleasant, no acute distress, answers questions appropriately - Neck Neck exam general surgery: Present: supple, trachea midline. Absent: lymphadenopathy - Respiratory Respiratory exam: Present: CTAB - Cardiovascular Cardiovascular exam: Present: RRR - GI/Abdominal GI/Abdominal exam: Present: normal bowel sounds, soft. Absent: distended, tenderness - Extremities Exam Extremities exam: Absent: pedal edema - Back Exam Back exam: Absent: CVA tenderness (L), CVA tenderness (R) - Neurological Exam Neurological exam: Present: alert, oriented X3, no focal deficits, strengths equal and symetr throughout. Absent: facial droop, speech deficit - Skin Skin exam: Absent: rash Internal Medicine: Result - Labs CBC & Chem 7: 07/04/16 03:25 07/05/16 04:02 Labs: BMP 07/05/16 04:02 Sodium 137 Potassium 4.1 Chloride 99 Carbon Dioxide 29 BUN 13 Creatinine 0.81 Glucose 111 H Calcium 9.2 - ABG Interpretation ABG results: PT/INR, D-dimer PT 11.2 Seconds (9.4-12.1) 07/02/16 03:22 Consult Discharge Plan - Plan Referrals: Susan Navarro [Primary Care Provider] - 07/15/16 11:00 am
[2016-07-05] MEDS: *HR* LORazepam 1 MG TABLET PO PRN ×2 (18:05→23:04)
[2016-07-06] MEDS: Levalbuterol Neb 0.63 MG/3 ML IH SCH ×4 (04:29→22:43)
[2016-07-06 05:03] LABS: BUN/Creatinine Ratio 16 (6-26); Blood Urea Nitrogen 14 mg/dL (8-26); Carbon Dioxide 30 mEq/L (19-29); Chloride 97 mEq/L (98-109); Glucose 102 mg/dL (70-99); Osmolality,Calculated 281 (280-300); Potassium 3.9 mEq/L (3.5-4.5); Sodium 135 mEq/L (136-145); eGFR For African Americans > 60 (> 60); eGFR For Non-African Americans > 60 (> 60)
[2016-07-06] MEDS: *HR* LORazepam 1 MG TABLET PO PRN ×3 (05:55→20:05)
[2016-07-06] MEDS: *HR* Heparin 5,000 UNIT/ML VIAL SQ SCH ×2 (05:55→18:00)
[2016-07-06] MEDS: Spironolactone 25 MG TABLET PO SCH (08:10)
[2016-07-06] MEDS: *HR* Amiodarone 200 MG TABLET PO SCH (08:10)
[2016-07-06] MEDS: Aspirin Enteric Coated 81 MG Tablet PO SCH (08:11)
[2016-07-06] MEDS: Furosemide 40 MG TABLET PO SCH ×2 (08:11→21:30)
[2016-07-06] MEDS: Cholecalciferol (D-3) 1,000 UNIT TABLET PO SCH ×2 (08:11→21:30)
--- NOTE | 2016-07-06 09:37 | Cardiology Progress Note ---
Date of Encounter: 07/06/16 Time of Encounter: 09:00 Assessment and Plan (1) Ventricular tachycardia Current Visit: Yes Status: Acute Presented with presyncope. Found to have re-current frequent episodes of NSVT on device check. Device check showed 11 NSVT episodes successfully treated with ATP. There was a total of 502 small runs of NSVT seen since 06/16/16. Atrial paced 89.1%. V paced 85.8%. Troponin negative x3. EKG shows atrial pacing and frequent PVC/ PAC. SR underlying. Recent cardiac testing: SAM completed for valvular heart disease 03/19/16-EF 40%, global hypokenesis with regional variations. Normal RV size and function, linear echo density in consistent with pacer lead seen in right atrium. severely dilated LA. Anterior mitral valve leaflet mildly thickened. Restricted motion of posterior mitral valve leaflet. Mod-severe MR, which is eccentric. Mild TR. There is a small PFO. TTE-06/17/16- Echo rechecked. EF 40%, mild-moderate eccentric MR, mild-moderate TR. [facility] 02/2013- Bypass grafts patent. Recent attempt at increasing sotalol therapy. Initially he improved, sotalol d/c 'ed upon admission; last dose 1200 07/01/16. Oral amiodarone started on 07/03/16; increased dose to 400 mg BID on 07/04/16. Sustained episode of VT yesterday at 12:40. Discussed with EP, Dr. Wolf, may need to start IV amiodarone today. Recommend [facility] today to evaluate ischemic etiology of monomorphic VT; alternatives, risks, and benefits discussed, he is agreeable to proceed. NPO now , plan for [facility] this afternoon. Further recommendations to follow. (2) ICD (implantable cardioverter-defibrillator) in place Current Visit: Yes Status: Acute ICD check on chart. See plan above. (3) Coronary artery disease Current Visit: No Status: Chronic Status post CABG approximately 15 years ago. [facility] 2013 showed patent bypass grafts. Continue asa, statin, and bb. Denies chest pain or discomfort. Troponin negative x3. Qualifiers: Coronary Disease-Associated Artery/Lesion type: bypass graft [place] vs. transplanted heart: [place] heart Associated angina: without angina Qualified Code(s): I25.810 - Atherosclerosis of coronary artery bypass graft(s) without angina pectoris (4) Ischemic cardiomyopathy Current Visit: No Status: Chronic Most recent EF is 40% with global systolic dysfunction. Currently euvolemic on exam. Laying flat without distress. Continue carvedilol. No zayra inhibitor d/t hypotension. Low sodium diet and daily weights. Discussion w patient/family: The assessment and plan as outlined above was discussed with the patient and/or family members who expressed understanding and agreement. All questions were answered. Thank you for involving us in the care of your patient. Please call with any questions. The patient will be discussed and reviewed with Dr. Dodge; changes to be made accordingly. Subjective Principal diagnosis: NSVT Interval history: Seen and examined. Admitted s/p syncopal episodes d/t multiple episodes of ATP for NSVT. Episode of VT yesterday afternoon around 12:40 PM ~ 1 min with successful ATP. Episode occurred after patient walked from the bed to bathroom and back to chair. Overnight, episodes of NSVT are less frequent. He has no complaints upon exam this morning. Objective Vital Signs, Last 4 Hours Temp Pulse Resp BP Pulse Ox 07/06/16 08:00 85 07/06/16 07:39 97.6 F 110 18 88/60 97 General: Conversant, No Apparent Distress, Other (thin, frail) HEENT: Atraumatic, Normocephaly, Mucus Membranes Moist Cardiac: Reg Rate and Rhythm, Normal S1 and S2 Lungs: Normal Breath Sounds Neuro: Alert and responsive Abdomen: Soft Skin: No rashes noted on visualized skin Musculoskeletal: No Chest Wall Tenderness Extremities: No Edema, Normal Pulses Results 07/04/16 03:25 07/06/16 03:37 Lab Results 07/06/16 03:37 Sodium 135 L Potassium 3.9 Chloride 97 L Carbon Dioxide 30 H BUN 14 Creatinine 0.85 Glucose 102 H Calcium 9.0 Magnesium 2.0 Active Medications Acetaminophen (Tylenol) 650 mg PO Q6HR PRN PRN Reason: Mild Pain (1-3) Stop: 12/31/16 22:15 Amiodarone HCl (Cordarone) 400 mg PO BID JULIETTE Stop: 01/03/17 21:01 Last Admin: 07/06/16 08:10 Dose: 400 mg Artificial Tears (Akwa Tears) 1 drop BOTH EYES QID PRN; Protocol PRN Reason: Dry Eye(s) Stop: 01/01/17 07:52 Last Admin: 07/02/16 09:10 Dose: 1 drop Aspirin (Aspirin Ec) 81 mg PO DAILY [facility] Stop: 01/01/17 09:01 Last Admin: 07/06/16 08:11 Dose: 81 mg Atorvastatin Calcium (Lipitor) 40 mg PO HS [facility] Stop: 01/02/17 21:01 Last Admin: 07/05/16 20:16 Dose: 40 mg Carvedilol (Coreg) 12.5 mg PO BIDWM [facility] PRN Reason: Protocol Stop: 01/01/17 09:01 Last Admin: 07/06/16 08:11 Dose: 12.5 mg Furosemide (Lasix) 40 mg PO BID [facility] Stop: 01/01/17 09:01 Last Admin: 07/06/16 08:11 Dose: 40 mg Heparin Sodium (Porcine) (Heparin) 5,000 unit SQ Q12HCO [facility] Stop: 01/01/17 06:01 Last Admin: 07/06/16 05:55 Dose: 5,000 unit Levalbuterol HCl (Xopenex) 0.63 mg IH [id number] [facility] Stop: 01/02/17 13:01 Last Admin: 07/06/16 04:29 Dose: 0.63 mg Lorazepam (Ativan) 1 mg PO QID PRN PRN Reason: Anxiety Stop: 01/02/17 07:32 Last Admin: 07/06/16 05:55 Dose: 1 mg Naloxone HCl (Narcan) 0.4 mg IVP Q2MIN PRN PRN Reason: Opioid Reversal Stop: 12/31/16 22:15 Omeprazole (Prilosec) 20 mg PO DAILY@0730 [facility] PRN Reason: Protocol Stop: 01/01/17 09:01 Last Admin: 07/06/16 08:11 Dose: 20 mg Ondansetron HCl (Zofran) 4 mg IVP Q8HR PRN PRN Reason: Nausea And Vomiting Stop: 12/31/16 22:15 Oxycodone HCl (Roxicodone) 5 mg PO Q6HR PRN PRN Reason: Moderate Pain (4-6) Stop: 12/31/16 22:15 Potassium Chloride (Potassium Chloride) 20 meq PO BID [facility] Stop: 01/01/17 09:01 Last Admin: 07/06/16 08:11 Dose: 20 meq Spironolactone (Aldactone) 12.5 mg PO DAILY [facility] Stop: 01/01/17 09:01 Last Admin: 07/06/16 08:10 Dose: 12.5 mg Vitamin D (Vitamin D) 1,000 unit PO BID [facility] Stop: 01/01/17 09:01 Last Admin: 07/06/16 08:11 Dose: 1,000 unit - Imaging and Cardiology Echo: report reviewed Other Results: Telemetry reviewed, avg HR=98 paced. NSVT. - EKG Interpretation EKG results cardiology: personally reviewed Consult Discharge Plan - Plan Referrals: Susan Navarro [Primary Care Provider] - 07/15/16 11:00 am
--- NOTE | 2016-07-06 13:33 | Pre-Sedation Evaluation ---
Pre-sedation evaluation - Pre-sedation checklist Date of procedure: 07/06/16 Procedure: [facility] Recent Vitals: Last Vital Signs Temp 97.9 F 07/06/16 11:49 Pulse 68 07/06/16 11:49 Resp 18 07/06/16 11:49 BP 88/65 07/06/16 11:49 Pulse Ox 98 07/06/16 11:49 H&P (including ROS) documented in medical record: Yes Previous reaction to sedatives/anesthetics: No Dietary Status: No solid food in preceding 4 hrs and no liquid in preceding 2 hrs Dentition: dentures removed ASA Classification *see protocol: CLASS II-Mild systemic disease Plan of Care: Pt appropriate candidate for procedure/moderate/conscious sedation , Risks/benefits of procedure/sedation discussed w/ patient/family
[2016-07-06] MEDS ORDERED: Heparin 1,000 UNITS/500 mL NS 500 ML ONE (14:14)
[2016-07-06] MEDS ORDERED: Verapamil 5 MG/2 ML VIAL ONE (14:14)
[2016-07-06] MEDS ORDERED: *HR* Heparin 10,000 UNIT/10 ML VIAL ONE ×2 (14:14→16:05)
[2016-07-06] MEDS ORDERED: Nitroglycerin 1,000 MCG/10 ML VIAL IV ONE ×2 (14:14→16:05)
[2016-07-06] MEDS ORDERED: 0.9 % Sodium Chloride 1,000 ML ONE ×3 (14:14→16:05)
[2016-07-06] MEDS ORDERED: *HR* Midazolam HCl 2 MG/2 ML VIAL ONE ×2 (14:32→16:31)
[2016-07-06] MEDS ORDERED: *HR* FentaNYL (PF) 100 MCG/2 ML VIAL ONE ×2 (14:33→16:31)
--- NOTE | 2016-07-06 17:07 | Event Note ---
Date of Encounter: 07/06/16 Time of Encounter: 17:10 - Cardiology Event Note 4/4 patent bypasses with severe [place] CAD. EF 30%. No targets for revascularization.
[2016-07-06] MEDS ORDERED: Amiodarone Premix 360 MG/200 ML BAG IVC ONE (17:16)
[2016-07-06] MEDS ORDERED: Amiodarone Premix 150 MG/100 ML BAG IVPB ONE (17:16)
--- NOTE | 2016-07-06 17:34 | Internal Med Progress Note ---
Date of Encounter: 07/06/16 Time of Encounter: 10:30 - Assessment and plan (1) Ventricular tachycardia Current Visit: Yes Status: Acute Assessment and plan: nonsustained V. tach this morning. Appreciate cardiology input. plan for [facility] today. 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 top dyeing machine tender. continue coreg. (2) Ischemic cardiomyopathy Current Visit: No Status: Chronic Assessment and plan: stable. continue home meds. (3) Chronic systolic heart failure Current Visit: No Status: Acute Assessment and plan: compensated. continue home meds. (4) COPD (chronic obstructive pulmonary disease) Current Visit: No Status: Chronic Assessment and plan: stable. continue home meds. Qualifiers: COPD type: chronic bronchitis Chronic bronchitis type: simple Qualified Code(s): J41.0 - Simple chronic bronchitis (5) Coronary artery disease Current Visit: No Status: Chronic Assessment and plan: stable. continue home meds. Qualifiers: Coronary Disease-Associated Artery/Lesion type: bypass graft [place] vs. transplanted heart: [place] heart Associated angina: without angina Qualified Code(s): I25.810 - Atherosclerosis of coronary artery bypass graft(s) without angina pectoris - Subjective Interval history: Patient had again few short episodes of nsvt this morning. No chest pain, dizziness, or lightheadedness. Per patient episodes are milder compared to admission, he is not any more symptomatic when tachycardia happens. - Constitutional Vitals: Temp Pulse Resp BP Pulse Ox 97.9 F 68 18 88/65 98 07/06/16 11:49 07/06/16 11:49 07/06/16 11:49 07/06/16 11:49 07/06/16 11:49 General appearance: Present: cooperative, A&O X 3, pleasant, no acute distress, answers questions appropriately - Neck Neck exam general surgery: Present: supple, trachea midline. Absent: lymphadenopathy - Respiratory Respiratory exam: Present: CTAB - Cardiovascular Cardiovascular exam: Present: RRR - GI/Abdominal GI/Abdominal exam: Present: normal bowel sounds, soft. Absent: distended, tenderness - Extremities Exam Extremities exam: Absent: pedal edema - Back Exam Back exam: Absent: CVA tenderness (L), CVA tenderness (R) - Neurological Exam Neurological exam: Present: alert, oriented X3, no focal deficits, strengths equal and symetr throughout. Absent: facial droop, speech deficit - Skin Skin exam: Absent: rash Internal Medicine: Result - Labs CBC & Chem 7: 07/04/16 03:25 07/06/16 03:37 Labs: BMP 07/06/16 03:37 Sodium 135 L Potassium 3.9 Chloride 97 L Carbon Dioxide 30 H BUN 14 Creatinine 0.85 Glucose 102 H Calcium 9.0 - ABG Interpretation ABG results: PT/INR, D-dimer PT 11.2 Seconds (9.4-12.1) 07/02/16 03:22 Consult Discharge Plan - Plan Referrals: Susan Navarro [Primary Care Provider] - 07/15/16 11:00 am
--- NOTE | 2016-07-06 17:45 | Invasive Diagnostic Lab Proc ---
Name: Isai Latif Date of Study: 07/06/2016 Date: 1945 Ht: 66.0in Medical Record#: [id number] Age: 70 Wt: 107.14lb Gender: Male BSA: 1.53 Order #: [id number] BMI: 17.3 Physicians Procedure Physician: Kenroy Henley MD, [facility] Referring MD: Referring MD: Staff Name Position Time In Sites, Valeria RT (R) Scrub 02:33 PM Anneliese Franco RN Carousel Attendant 02:33 PM Jahaira Granados RN Monitor 02:33 PM Sites, Valeria RT (R) Monitor 04:30 PM Rasheeda Archibald RT (R) Scrub 04:30 PM Jahaira Granados RN Carousel Attendant 04:30 PM Indications Indication vtach Cardiomyopathy Procedures Performed Procedure L HRT ART/GRFT ANGIO Pre-Procedure Checklist Informed consent is complete signed and on chart. H\\T\\P is on chart. ID band is on and ID verified with patient. Patient NPO for procedure The procedure was described for the patient and questions were answered. Blood Pressure: 104/70 ECG is on chart. Rhythm: SR Plan of Care Patient will tolerate the procedure without complications. Adequate level of comfort will be maintained. Hemodynamics will remain stable Patient will recover from procedure without complications. Respiratory function will be maintained. Cardiac rhythm will remain stable. Patient temperature will be maintained. Patient and/or family have verbalized understanding of the procedure. Patient Education Intravenous Access Time IV Size Location DC'd Fluid/Drip Rate Units RN 18g 1 /" Patent On Arrival Lt Antecubital 0.9NaCl Allergies CODIENE Vital Signs Time BP (mmHg) HR (bpm) O2 Sat. RR (bpm) LOC 02:33 PM / % 5 = Fully awake and oriented or at pre-proc level 02:50 PM 85 / 61 87 98 % 16 4 = Oriented but drowsy 03:05 PM 85 / 65 69 98 % 18 4 = Oriented but drowsy 03:20 PM 93 / 59 67 98 % 18 5 = Fully awake and oriented or at pre-proc level 03:30 PM 85 / 59 75 % 18 5 = Fully awake and oriented or at pre-proc level 04:00 PM 86 / 53 72 95 % 18 5 = Fully awake and oriented or at pre-proc level 02:35 PM 104 / 70 111 98 % 5 02:40 PM 104 / 71 80 98 % 26 04:23 PM 119 / 53 98 98 % 24 04:28 PM 88 / 72 66 98 % 04:33 PM 118 / 56 83 98 % 14 04:38 PM 96 / 58 98 98 % 16 04:43 PM 99 / 56 119 97 % 04:48 PM 89 / 49 92 90 % 17 04:53 PM 94 / 56 89 93 % 22 04:58 PM 105 / 70 80 93 % 23 05:03 PM 111 / 69 94 93 % 05:08 PM 94 / 76 93 95 % 14 05:14 PM 94 / 77 83 97 % 20 05:18 PM 99 / 61 107 94 % 16 05:23 PM 97 / 58 83 92 % 24 05:28 PM 96 / 62 94 97 % 15 Procedural Medications Time Medication Dose Units Method Given By 02:33 PM Oxygen 2 L/min nasal cannula Anneliese Franco RN 02:39 PM Versed 1 mg Intravenous Anneliese Franco RN 02:39 PM Fentanyl 25 mcg Intravenous Anneliese Franco RN 04:31 PM Oxygen 2 L/min nasal cannula Jahaira Granados RN 04:31 PM Versed 1 mg Intravenous Jahaira Granados RN 04:32 PM Fentanyl 25 mcg Intravenous Jahaira Granados RN 04:32 PM Lidocaine 2% 6 ml Subcutaneous Kenroy Henley MD, FACC 04:34 PM Versed 1 mg Intravenous Jahaira Granados RN 04:34 PM Fentanyl 25 mcg Intravenous Jahaira Granados RN ASA Classification: CLASS II- Mild systemic disease (i.e. well-controlled diabetes, hypertension, asthma, cigarette smoking) Lorna Score Preprocedure Postprocedure Activity 2- Moves 4 extremities sustained head lift Activity 2- Moves 4 extremities sustained head lift Circulation 2- SBP +/= 20 points of pre-anesthetic level Circulation 2- SBP +/= 20 points of pre-anesthetic level Consciousness 2- Awake and alert oriented x 3 Consciousness 2- Awake and alert oriented x 3 O2 Saturation 2- Able to maintain O2 satruation of 92% on room air O2 Saturation 2- Able to maintain O2 satruation of 92% on room air Respiratory 2- Able to deep breathe and cough well Respiratory 2- Able to deep breathe and cough well Total Score 10 Total Score 10 Contrast Agent: Isovue Diagnostic Contrast: 104 ml Total Contrast: 104 ml Fluoro Dose: 206 mGy Procedure Log Time Note Enter By 02:33 PM Pt arrived to microbiology laboratory manager 2 at 14:33 [email or web address] 02:33 PM Sandi, Valeria RT (R) Position: Scrub Time in: 14:33 [email or web address] 02:33 PM Anneliese Franco RN Position: Carousel Attendant Time in: 14:33 [email or web address] 02:33 PM Jahaira Granados RN Position: Monitor Time in: 14:33 [email or web address] 02:33 PM Patient charges- Angio tray pack, Navilyst 3mm J, Pulse Oximetry and ACIST tubing and transducer [email or web address] 02:33 PM Case Delayed No [email or web address] 02:33 PM Hair removed from procedure site in procedure lab using clippers. Bilateral groin prepped with Chloraprep by Jaharia Granados RN, safety strap applied then patient was draped. Skin intact. [email or web address] 02:33 PM Physician arrived 14:33 [email or web address] 02:33 PM ASA Class CLASS II- Mild systemic disease (i.e. well-controlled diabetes, hypertension, asthma, cigarette smoking) [email or web address] 02:33 PM Ashvin and greluz completed [email or web address] 02:33 PM Sign in performed according to hospital policy. [email or web address] 02:33 PM Procedure start 14:33 [email or web address] 02:33 PM Time: 14:33 Oxygen on at 2 L/min per nasal cannula by Anneliese Franco RN [email or web address] 02:33 PM Time: 14:33 Patient comfortable and pain free: Yes [email or web address] 02:33 PM Time: 14:33LOC: 5 = Fully awake and oriented or at pre-proc level [email or web address] 02:34 PM Clinical Presentation: Unstable angina [email or web address] 02:35 PM JP=293 bpm, BDIY=791/70 mmhg, SpO2=98.0 %, Resp=5 B/min, Comment=SR 02:38 PM Recorded ECG: HR=70 Condition=Condition 1 02:39 PM Time: 14:39 Versed 1 mg Intravenous Given by Anneliese Franco RN [email or web address] 02:39 PM Time: 14:39 Fentanyl 25 mcg Intravenous Given by Anneliese Franco RN [email or web address] 02:40 PM HR=80 bpm, XSHG=695/71 mmhg, SpO2=98.0 %, Resp=26 B/min 02:43 PM pt to be pulled off table due to emergency case, will go to HR2 [email or web address] 02:44 PM Report given to Mary FERNANDO Pt taken to Holding room Room #2. 14:44 [email or web address] 02:44 PM Patient out of room: 14:44 [email or web address] 02:50 PM received from environmental laboratory technician via stretcher from the lab prior to heart cath. [email or web address] 04:17 PM Sign in performed according to hospital policy. [email or web address] 04:17 PM Procedure start 16:17 [email or web address] 04:17 PM Patient returning to lab from holding area to continue case. [email or web address] 04:22 PM Vitals capture started with the following parameters, Patient=Adult, Interval=5 min, Initial Qcknqouf=351 mmHg, Deflation Rate=5 mmHg, Cuff placed on Right Arm 04:23 PM HR=98 bpm, ULWQ=132/53 mmhg, SpO2=98.0 %, Resp=24 B/min 04:25 PM Recorded ECG: BV=128 Condition=Condition 1 04:28 PM HR=66 bpm, NIBP=88/72 mmhg, SpO2=98.0 % 04:30 PM Valeria Junior RT (R) Position: Monitor Time in: 16:30 [email or web address] 04:30 PM Rasheeda Archibald RT (R) Position: Scrub Time in: 16:30 [email or web address] 04:30 PM Jahaira Granados RN Position: Carousel Attendant Time in: 16:30 [email or web address] 04:31 PM CathStat 04:31 PM Case Start 04:31 PM Hair removed from procedure site in holding area using clippers. Bilateral groin prepped with Chloraprep by Jhaaira Granados RN, safety strap applied then patient was draped. Skin intact. [email or web address] 04:31 PM Time: 16:31 Oxygen on at 2 L/min per nasal cannula by Jahaira Granados RN [email or web address] 04:32 PM Time: 16:31 Versed 1 mg Intravenous Given by Jahaira Granados RN [email or web address] 04:32 PM Time: 16:32 Fentanyl 25 mcg Intravenous Given by Jahaira Granados RN [email or web address] 04:32 PM Time out performed according to hospital policy [email or web address] 04:33 PM Time: 16:32 6 ml Lidocaine 2% to right groin Subcutaneous Given by Kenroy Henley MD, [facility] [email or web address] 04:33 PM HR=83 bpm, WDBY=349/56 mmhg, SpO2=98.0 %, Resp=14 B/min 04:33 PM Access obtained by percutaneous puncture. 5Fr 10cm Terumo [place] sheath placed in right Femoral artery. [id number] [email or web address] 04:34 PM 5Fr FR 4 catheter inserted over the wire DN [email or web address] 04:34 PM 0.035 145cm Navilyst 3mmJ wire [id number] [email or web address] 04:34 PM Time: 16:34 Versed 1 mg Intravenous Given by Jahaira Granados RN [email or web address] 04:35 PM Recorded Pressure: LV, HR=85, Condition=Condition 1 (Left Ventricle) LV 91/13/18 04:35 PM Time: 16:34 Fentanyl 25 mcg Intravenous Given by Jahaira Granados RN [email or web address] 04:35 PM Catheter selectively placed in left ventricle [email or web address] 04:35 PM Bolus angiogram of left Ventricle complete: 10 ml/sec for a total of 35 mls [email or web address] 04:36 PM RCA angiography performed in multiple views. [email or web address] 04:37 PM SVG to the 1st Diagonal angio performed in multiple views. [email or web address] 04:38 PM HR=98 bpm, NIBP=96/58 mmhg, SpO2=98.0 %, Resp=16 B/min 04:38 PM SVG to the 1st OM angio performed in multiple views. [email or web address] 04:38 PM Recorded Pressure: Ao, HR=84, Condition=Condition 1 (Aorta) Ao 114/69/86 04:39 PM SVG to the RPDA angio performed in multiple views. [email or web address] 04:39 PM Recorded Pressure: Ao, HR=91, Condition=Condition 1 (Aorta) Ao 81/60/71 04:42 PM Catheter removed tsites 04:42 PM 5Fr FL 4 catheter inserted over the wire DN tsites 04:42 PM LCA angiography performed in multiple views. tsites 04:43 PM SG=167 bpm, NIBP=99/56 mmhg, SpO2=97.0 % 04:43 PM Recorded Pressure: Ao, HR=73, Condition=Condition 1 (Aorta) Ao 77/56/67 04:44 PM 5Fr Pigtail catheter inserted over the wire C tsites 04:45 PM Bolus angiogram of Aortic root complete: 4 ml/sec for a total of 7 mls tsites 04:47 PM Catheter removed tsites 04:47 PM 5Fr IM catheter inserted over the wire [id number] tsites 04:48 PM HR=92 bpm, NIBP=89/49 mmhg, SpO2=90 %, Resp=17 B/min 04:49 PM Catheter removed tsites 04:49 PM 5Fr MPA catheter inserted over the wire [id number] tsites 04:51 PM Catheter removed tsites 04:51 PM JR4 reinserted tsites 04:53 PM HR=89 bpm, NIBP=94/56 mmhg, SpO2=93 %, Resp=22 B/min 04:53 PM Wire removed tsites 04:53 PM 0.035 260cm Navilyst 3mmJ wire [id number] tsites 04:53 PM IM reinserted tsites 04:56 PM Left [place] to the LAD angio performed in multiple views. tsites 04:57 PM Catheter removed tsites 04:58 PM HR=80 bpm, FLTI=317/70 mmhg, SpO2=93 %, Resp=23 B/min 04:58 PM Bolus angiogram of right Femoral complete: 2 ml/sec for a total of 4 mls tsites 05:01 PM Procedure completed at 17:01 tsites 05:01 PM Sign out completed: Radiation Dose 206 mGy Fluoro Time: 10.6 Isovue 370 - 500ml contrast 104 ml given by Kenroy Henley MD, [facility]. Complications: NoneCardiac Rehab Consult needed: NoConfirmed administered medications: Yes tsites 05:01 PM Isovue 370 - 500ml,1 Bottle(s) used. tsites 05:02 PM Arterial sheath pulled using manual compression and V+ Pad for 25 minutes by Rasheeda Archibald RT (R) tsites 05:02 PM Post ECG Sr with pvc tsites 05:02 PM Post Blood Pressure 105/70 tsites 05:03 PM HR=94 bpm, UJCT=181/69 mmhg, SpO2=93.0 % 05:03 PM 17:03 Post Pulses Bilateral DP 2+ tsites 05:03 PM 17:03 Post Pulses Bilateral PT 1+ tsites 05:03 PM Information taught Cardiac Cath and V+ Pad tsites 05:03 PM Education needs Procedure, Plan of Care, and Responsibilities of Patient in Care tsites 05:03 PM Learning barriers :None tsites 05:03 PM Education Methods Verbal tsites 05:03 PM Education evaluation Able to repeat information tsites 05:08 PM HR=93 bpm, NIBP=94/76 mmhg, SpO2=95 %, Resp=14 B/min 05:11 PM Report given to jahaira FERNANDO Pt taken to Room #6. 17:11 tsites 05:11 PM Delay to floor No tsites 05:12 PM Coronary Dominance: right tsites 05:13 PM Lesion found in Proximal RCA. Pre Stenosis: 100 Pre EDUARDO Flow: tsites 05:13 PM Lesion found in Mid LAD. Pre Stenosis: 80 Pre EDUARDO Flow: tsites 05:14 PM Lesion found in Mid Circumflex. Pre Stenosis: 100 Pre EDUARDO Flow: tsites 05:14 PM Proximal Left Anterior Descending Coronary Artery with 0% stenosis. If graft is supplying this territory, 0 % stenosis. tsites 05:14 PM Mid/Distal Left Anterior Descending Coronary Artery and diagonal branches with 80% stenosis. If graft is supplying this area, 0 % stenosis tsites 05:14 PM Circumflex, Obtuse Marginal, Left Posterior Descending, and Left Posterolateral Coronary Arteries with 100 % stenosis. If graft is supplying this area, 0 % stenosis tsites 05:14 PM HR=83 bpm, NIBP=94/77 mmhg, SpO2=97 %, Resp=20 B/min 05:14 PM Right Coronary, Right Posterior Descending Arteries with Right Posterolateral and Acute Marginal branches with 100 % stenosis. If graft is supplying this area, 0 % stenosis tsites 05:18 PM YS=826 bpm, NIBP=99/61 mmhg, SpO2=94 %, Resp=16 B/min 05:23 PM HR=83 bpm, NIBP=97/58 mmhg, SpO2=92.0 %, Resp=24 B/min 05:28 PM HR=94 bpm, NIBP=96/62 mmhg, SpO2=97.0 %, Resp=15 B/min 05:28 PM Site status No bleeding/hematoma - Rt Groin as reported by Anneliese Franco RN at 17:28 tsites 05:28 PM Opsite applied tsites 05:28 PM Patient out of room: 17:28 tsites 05:30 PM Vitals capture stopped. Complications Complication None Hemodynamics Pressures Site Systolic/A Wave Diastolic/V Wave Mean LV 91 13 18 AO 114 69 86 AO 81 60 71 AO 77 56 67 Post Procedure Information Blood Pressure: 105/70 mmHg Rhythm: Sr with pvc Post procedural instructions were given Closure Device Time Device Success/Fail 07/06/2016 5:14:00 PM Manual Compression Successful Site Checks Time Location Status Staff Sheath In? Note Rt Groin No bleeding/ No Hematoma Anneliese Franco RN 05:28 PM Rt Groin No bleeding/hematoma JoanAnneliese RN Pulses Time Site Pre-Procedure Post-Procedure Note Bilateral radial 2+ Bilateral DP 2+ Bilateral PT 1+ 5:03:00 PM Bilateral DP 2+ 5:03:00 PM Bilateral PT 1+ Updated by Valeria Junior RT (R) on 07/06/2016 5:39:30 PM Valeria Junior RT electronically signed on 07/06/2016 5:40:09 PM with status of Final
[2016-07-06] MEDS: Ondansetron 4 MG/2 ML VIAL IVP PRN (18:34)
[2016-07-07] MEDS: Amiodarone Premix 360 MG/200 ML BAG IVC SCH ×3 (00:40→18:37)
[2016-07-07 04:42] LABS: Alanine Aminotransferase 12 Units/L (0-55); Albumin 3.2 g/dL (3.5-5.0); Alkaline Phosphatase 54 Units/L (38-126); Aspartate Amino Transferase 17 Units/L (5-34); BUN/Creatinine Ratio 14 (6-26); Bilirubin,Direct 0.3 mg/dL (0.0-0.5); Bilirubin,Indirect 0.2 mg/dL (0.0-1.2); Bilirubin,Total 0.5 mg/dL (0.2-1.2); Blood Urea Nitrogen 13 mg/dL (8-26); Calcium 9.2 mg/dL (8.6-10.8); Carbon Dioxide 31 mEq/L (19-29); Chloride 96 mEq/L (98-109); Globulin 3.1 g/dL (2.4-3.5); Glucose 110 mg/dL (70-99); Magnesium 2.1 mg/dL (1.6-2.6); Osmolality,Calculated 281 (280-300); Potassium 4.5 mEq/L (3.5-4.5); Sodium 135 mEq/L (136-145); Total Protein 6.3 g/dL (6.0-8.3); eGFR For African Americans > 60 (> 60); eGFR For Non-African Americans > 60 (> 60)
[2016-07-07] MEDS: Levalbuterol Neb 0.63 MG/3 ML IH SCH ×4 (04:50→21:42)
[2016-07-07] MEDS: Ondansetron 4 MG/2 ML VIAL IVP PRN (06:07)
[2016-07-07] MEDS: *HR* Heparin 5,000 UNIT/ML VIAL SQ SCH ×2 (06:08→18:32)
[2016-07-07] MEDS: Aspirin Enteric Coated 81 MG Tablet PO SCH (08:38)
[2016-07-07] MEDS: Furosemide 40 MG TABLET PO SCH ×2 (08:38→21:00)
[2016-07-07] MEDS: Spironolactone 25 MG TABLET PO SCH (08:38)
[2016-07-07] MEDS: Cholecalciferol (D-3) 1,000 UNIT TABLET PO SCH ×2 (08:38→21:00)
--- NOTE | 2016-07-07 10:33 | Cardiology Progress Note ---
Date of Encounter: 07/07/16 Time of Encounter: 10:30 Assessment and Plan (1) Ventricular tachycardia Current Visit: Yes Status: Acute Presented with presyncope. Found to have re-current frequent episodes of NSVT on device check. Device check showed 11 NSVT episodes successfully treated with ATP. There was a total of 502 small runs of NSVT seen since 06/16/16. Atrial paced 89.1%. V paced 85.8%. Troponin negative x3. EKG shows atrial pacing and frequent PVC/ PAC. SR underlying. Recent cardiac testing: SAM completed for valvular heart disease 03/19/16-EF 40%, global hypokenesis with regional variations. Normal RV size and function, linear echo density in consistent with pacer lead seen in right atrium. severely dilated LA. Anterior mitral valve leaflet mildly thickened. Restricted motion of posterior mitral valve leaflet. Mod-severe MR, which is eccentric. Mild TR. There is a small PFO. TTE-06/17/16- Echo rechecked. EF 40%, mild-moderate eccentric MR, mild-moderate TR. [facility] 02/2013- Bypass grafts patent. Recent attempt at increasing sotalol therapy. Initially he improved, sotalol d/c 'ed upon admission; last dose 1200 07/01/16. Oral amiodarone started on 07/03/16; increased dose to 400 mg BID on 07/04/16. [facility] 07/06/16 (re: sustained VT): 4/4 bypass grafts patent, no targets for revascularization. EF 30%. Telemetry: avg HR=80 paced, NSVT. No sustained episodes of VT noted, episodes are less frequent. Max=11 beats. Started on IV amiodarone gtt yesterday evening--will be d/c'ed this evening at 6 :30 PM. As per discussion with Dr. Shahzad Wolf, will start 400 mg TID, first dose tonight. Outpatient dose to be determined upon further discussion with Dr. Shahzad Wolf. (2) ICD (implantable cardioverter-defibrillator) in place Current Visit: Yes Status: Acute ICD check on chart. See plan above. (3) Coronary artery disease Current Visit: No Status: Chronic Status post CABG approximately 15 years ago. [facility] 07/06/16: 4/4 bypass grafts patent, no targets for revascularization. EF 30% Continue asa, statin, and bb. Denies chest pain or discomfort. Troponin negative x3. Qualifiers: Coronary Disease-Associated Artery/Lesion type: bypass graft [place] vs. transplanted heart: [place] heart Associated angina: without angina Qualified Code(s): I25.810 - Atherosclerosis of coronary artery bypass graft(s) without angina pectoris (4) Ischemic cardiomyopathy Current Visit: No Status: Chronic Most recent EF is 40% with global systolic dysfunction. Currently euvolemic on exam. Laying flat without distress. Continue carvedilol. No zayra inhibitor d/t hypotension. Low sodium diet and daily weights. Discussion w patient/family: The assessment and plan as outlined above was discussed with the patient and/or family members who expressed understanding and agreement. All questions were answered. Thank you for involving us in the care of your patient. Please call with any questions. The patient will be discussed and reviewed with Dr. Dodge; changes to be made accordingly. Subjective Principal diagnosis: NSVT Interval history: Seen and examined. Admitted s/p syncopal episodes d/t multiple episodes of ATP for NSVT. [facility] on 07/06/16 for sustained VT. 4/4 bypass grafts patent, no targets for revascularization. EF 30%. Reports nausea this morning upon exam, per beside RN patient was nauseated yesterday evening after procedure; reports nausea has now resolved. States episodes of NSVT (symptomatic, feels "warm") have become less frequent and less severe. Objective Vital Signs, Last 4 Hours Temp Pulse Resp BP Pulse Ox 07/07/16 08:00 90 98/72 07/07/16 07:43 16 96 07/07/16 07:15 97.6 F 78 16 101/79 99 07/07/16 07:00 76 101/79 General: Conversant, No Apparent Distress, Other (thin, frail) HEENT: Atraumatic, Normocephaly, Mucus Membranes Moist Cardiac: Reg Rate and Rhythm, Normal S1 and S2 Lungs: Normal Breath Sounds Neuro: Alert and responsive Abdomen: Soft Skin: No rashes noted on visualized skin Musculoskeletal: No Chest Wall Tenderness Extremities: No Edema, Normal Pulses Other: right groin: dressing C/D/I. Site soft, no hematoma, oozing, or ecchymosis noted. +2 DP/PT pulses. Results 07/04/16 03:25 07/07/16 03:36 Lab Results 07/07/16 03:36 Sodium 135 L Potassium 4.5 Chloride 96 L Carbon Dioxide 31 H BUN 13 Creatinine 0.95 Glucose 110 H Calcium 9.2 Magnesium 2.1 Total Bilirubin 0.5 AST 17 ALT 12 Alkaline Phosphatase 54 Active Medications Acetaminophen (Tylenol) 650 mg PO Q6HR PRN PRN Reason: Mild Pain (1-3) Stop: 12/31/16 22:15 Artificial Tears ([place] Tears) 1 drop BOTH EYES QID PRN; Protocol PRN Reason: Dry Eye(s) Stop: 01/01/17 07:52 Last Admin: 07/02/16 09:10 Dose: 1 drop Aspirin (Aspirin Ec) 81 mg PO DAILY [facility] Stop: 01/01/17 09:01 Last Admin: 07/07/16 08:38 Dose: 81 mg Atorvastatin Calcium (Lipitor) 40 mg PO HS [facility] Stop: 01/02/17 21:01 Last Admin: 07/06/16 21:30 Dose: 40 mg Carvedilol (Coreg) 12.5 mg PO BIDWM JULIETTE PRN Reason: Protocol Stop: 01/01/17 09:01 Last Admin: 07/07/16 08:38 Dose: 12.5 mg Furosemide (Lasix) 40 mg PO BID [facility] Stop: 01/01/17 09:01 Last Admin: 07/07/16 08:38 Dose: 40 mg Heparin Sodium (Porcine) (Heparin) 5,000 unit SQ Q12HCO [facility] Stop: 01/01/17 06:01 Last Admin: 07/07/16 06:08 Dose: 5,000 unit Amiodarone HCl/Dextrose (Amiodarone Drip Premix 360mg/200ml) 360 mg in 200 mls @ 16.667 mls/hr IVC CONT JULIETTE PRN Reason: 0.5 MG/MIN Stop: 01/05/17 17:31 Last Admin: 07/07/16 00:40 Dose: 0.5 mg/min, 16.667 mls/hr Levalbuterol HCl (Xopenex) 0.63 mg IH [id number] JULIETTE Stop: 01/02/17 13:01 Last Admin: 07/07/16 07:43 Dose: 0.63 mg Lorazepam (Ativan) 1 mg PO QID PRN PRN Reason: Anxiety Stop: 01/02/17 07:32 Last Admin: 07/06/16 20:05 Dose: 1 mg Naloxone HCl (Narcan) 0.4 mg IVP Q2MIN PRN PRN Reason: Opioid Reversal Stop: 12/31/16 22:15 Omeprazole (Prilosec) 20 mg PO DAILY@0730 JULIETTE PRN Reason: Protocol Stop: 01/01/17 09:01 Last Admin: 07/07/16 08:37 Dose: 20 mg Ondansetron HCl (Zofran) 4 mg IVP Q8HR PRN PRN Reason: Nausea And Vomiting Stop: 12/31/16 22:15 Last Admin: 07/07/16 06:07 Dose: 4 mg Oxycodone HCl (Roxicodone) 5 mg PO Q6HR PRN PRN Reason: Moderate Pain (4-6) Stop: 12/31/16 22:15 Potassium Chloride (Potassium Chloride) 20 meq PO BID [facility] Stop: 01/01/17 09:01 Last Admin: 07/07/16 08:38 Dose: 20 meq Spironolactone (Aldactone) 12.5 mg PO DAILY [facility] Stop: 01/01/17 09:01 Last Admin: 07/07/16 08:38 Dose: 12.5 mg Vitamin D (Vitamin D) 1,000 unit PO BID [facility] Stop: 01/01/17 09:01 Last Admin: 07/07/16 08:38 Dose: 1,000 unit - Imaging and Cardiology Echo: report reviewed Cardiac cath: report reviewed Other Results: Telemetry review: avg HR=81 paced. Freqent episodes of NSVT. - EKG Interpretation EKG results cardiology: personally reviewed Consult Discharge Plan - Plan Referrals: Susan Navarro [Primary Care Provider] - 07/15/16 11:00 am Jame Bland MD [Partnered Physician] - (CALLED AND LEFT A VOICE MAIL FOR YOSELIN NEWELL FOR A FOLLOW UP APPOINTMENT)
--- NOTE | 2016-07-07 17:20 | Internal Med Progress Note ---
Date of Encounter: 07/07/16 Time of Encounter: 17:17 - Assessment and plan (1) Ventricular tachycardia Current Visit: Yes Status: Acute Assessment and plan: NSVT. Appreciate cardiology input. Patient receiving IV loading dose of amiodarone till 6.30 pm, and will start oral amiodarone tid. desk monitor. continue coreg. 07/06 Patient underwent LHC showing patent grafts. (2) Ischemic cardiomyopathy Current Visit: No Status: Chronic Assessment and plan: stable. continue home meds. (3) Chronic systolic heart failure Current Visit: No Status: Acute Assessment and plan: compensated. continue home meds. (4) COPD (chronic obstructive pulmonary disease) Current Visit: No Status: Chronic Assessment and plan: stable. continue home meds. Qualifiers: COPD type: chronic bronchitis Chronic bronchitis type: simple Qualified Code(s): J41.0 - Simple chronic bronchitis (5) Coronary artery disease Current Visit: No Status: Chronic Assessment and plan: stable. continue home meds. Qualifiers: Coronary Disease-Associated Artery/Lesion type: bypass graft [place] vs. 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 Patient was scheduled to start chemotherapy today. Oncology service notified of inpatient hospitalization. - Subjective Interval history: Patient vomited twice yesterday, he is feeling better today. still having short episodes of nsvt but he is completely asymptomatic. No chest pain, dizziness, or lightheadedness. - Constitutional Vitals: Temp Pulse Resp BP Pulse Ox 98.0 F 82 16 83/67 94 07/07/16 15:48 07/07/16 16:00 07/07/16 16:30 07/07/16 16:00 07/07/16 16:30 General appearance: Present: cooperative, A&O X 3, pleasant, no acute distress, underweight, answers questions appropriately - Respiratory Respiratory exam: Present: CTAB - Cardiovascular Cardiovascular exam: Present: RRR - GI/Abdominal GI/Abdominal exam: Present: normal bowel sounds, soft. Absent: distended, tenderness - Extremities Exam Extremities exam: Absent: pedal edema - Back Exam Back exam: Absent: CVA tenderness (L), CVA tenderness (R) - Neurological Exam Neurological exam: Present: alert, oriented X3, no focal deficits, strengths equal and symetr throughout. Absent: facial droop, speech deficit - Skin Skin exam: Absent: rash Internal Medicine: Result - Labs CBC & Chem 7: 07/04/16 03:25 07/07/16 03:36 Labs: BMP 07/07/16 03:36 Sodium 135 L Potassium 4.5 Chloride 96 L Carbon Dioxide 31 H BUN 13 Creatinine 0.95 Glucose 110 H Calcium 9.2 Liver Function 07/07/16 Range/Units 03:36 Total Bilirubin 0.5 (0.2-1.2) mg/dL Direct Bilirubin 0.3 (0.0-0.5) mg/dL AST 17 (5-34) Units/L ALT 12 (0-55) Units/L Alkaline Phosphatase 54 (38-126) Units/L Albumin 3.2 L (3.5-5.0) g/dL - ABG Interpretation ABG results: PT/INR, D-dimer PT 11.2 Seconds (9.4-12.1) 07/02/16 03:22 - Impressions Impressions Chest X-Ray 07/07/16 08:02 IMPRESSION: Stable exam and no acute cardiopulmonary disease D/ / Kenny Nur MD / Kenny Nur MD Interpreting Provider: Kenny Nur MD Consult Discharge Plan - Plan Referrals: Susan Navarro [Primary Care Provider] - 07/15/16 11:00 am Jame Bland MD [Partnered Physician] - (CALLED AND LEFT A VOICE MAIL FOR YOSELIN NEWELL FOR A FOLLOW UP APPOINTMENT)
[2016-07-07] MEDS: *HR* Amiodarone 200 MG TABLET PO SCH (21:00)
[2016-07-07] MEDS: *HR* LORazepam 1 MG TABLET PO PRN (22:14)
[2016-07-08] MEDS: Levalbuterol Neb 0.63 MG/3 ML IH SCH ×3 (04:20→15:52)
[2016-07-08 05:58] LABS: BUN/Creatinine Ratio 13 (6-26); Blood Urea Nitrogen 12 mg/dL (8-26); Calcium 9.2 mg/dL (8.6-10.8); Carbon Dioxide 32 mEq/L (19-29); Chloride 94 mEq/L (98-109); Glucose 89 mg/dL (70-99); Magnesium 2.2 mg/dL (1.6-2.6); Osmolality,Calculated 279 (280-300); Sodium 135 mEq/L (136-145); eGFR For African Americans > 60 (> 60); eGFR For Non-African Americans > 60 (> 60)
[2016-07-08] MEDS: *HR* Heparin 5,000 UNIT/ML VIAL SQ SCH ×2 (06:26→16:11)
--- NOTE | 2016-07-08 07:37 | Cardiology Progress Note ---
Date of Encounter: 07/08/16 Time of Encounter: 06:50 Assessment and Plan (1) Ventricular tachycardia Current Visit: Yes Status: Acute Presented with presyncope. Found to have re-current frequent episodes of NSVT on device check. Device check showed 11 NSVT episodes successfully treated with ATP. There was a total of 502 small runs of NSVT seen since 06/16/16. Atrial paced 89.1%. V paced 85.8%. Troponin negative x3. EKG shows atrial pacing and frequent PVC/ PAC. SR underlying. Recent cardiac testing: SAM completed for valvular heart disease 03/19/16-EF 40%, global hypokenesis with regional variations. Normal RV size and function, linear echo density in consistent with pacer lead seen in right atrium. severely dilated LA. Anterior mitral valve leaflet mildly thickened. Restricted motion of posterior mitral valve leaflet. Mod-severe MR, which is eccentric. Mild TR. There is a small PFO. TTE-06/17/16- Echo rechecked. EF 40%, mild-moderate eccentric MR, mild-moderate TR. [facility] 02/2013- Bypass grafts patent. Recent attempt at increasing sotalol therapy. Initially he improved, sotalol d/c 'ed upon admission; last dose 1200 07/01/16. Oral amiodarone started 07/03/16. He was then loaded IV. Converted back to oral last night. [facility] 07/06/16 (re: sustained VT): 4/4 bypass grafts patent, no targets for revascularization. EF 30%. Telemetry: avg HR=86 paced, NSR, small runs of NSVT. No sustained episodes of VT noted, episodes are less frequent. Max=13 beats. Patient reports less symptoms Will discuss out-pt amiodarone dosing with Dr. Shahzad Wolf. Ok for discharge from cardiology standpoint today. I will place amiodarone RX on chart. (2) ICD (implantable cardioverter-defibrillator) in place Current Visit: Yes Status: Acute ICD check on chart. See plan above. (3) Coronary artery disease Current Visit: No Status: Chronic Status post CABG approximately 15 years ago. [facility] 07/06/16: 4/4 bypass grafts patent, no targets for revascularization. EF 30% Continue asa, statin, and bb. Denies chest pain or discomfort. Troponin negative x3. Qualifiers: Coronary Disease-Associated Artery/Lesion type: bypass graft [place] vs. transplanted heart: [place] heart Associated angina: without angina Qualified Code(s): I25.810 - Atherosclerosis of coronary artery bypass graft(s) without angina pectoris (4) Ischemic cardiomyopathy Current Visit: No Status: Chronic Most recent EF is 40% with global systolic dysfunction. Currently euvolemic on exam. Laying flat without distress. Continue carvedilol. No zayra inhibitor d/t hypotension. Noted b/p 80-90's sytolic. He denies dizziness or lightheadedness. Low sodium diet and daily weights. Discussion w patient/family: The assessment and plan as outlined above was discussed with the patient and/or family members who expressed understanding and agreement. All questions were answered. Thank you for involving us in the care of your patient. Please call with any questions. Subjective Principal diagnosis: NSVT Interval history: No complaints overnight. Denies chest pain or palpitations. Objective Vital Signs, Last 4 Hours Temp Pulse Resp BP Pulse Ox 07/08/16 07:25 98.0 F 95 16 91/65 99 07/08/16 04:21 16 95 General: Conversant, No Apparent Distress, Other (frail male) HEENT: Atraumatic, Normocephaly, Mucus Membranes Moist Neck: No JVD, Normal carotid pulses Cardiac: Reg Rate and Rhythm, Normal S1 and S2, No Murmur Lungs: Normal Breath Sounds, No Wheeze, Rales, Rhonchi Neuro: Alert and responsive, No focal deficits noted Abdomen: Soft, Non-Tender Skin: No rashes noted on visualized skin Musculoskeletal: No Chest Wall Tenderness Extremities: No Clubbing, No Cyanosis, No Edema, Normal Pulses Results 07/04/16 03:25 07/08/16 05:06 Lab Results 07/08/16 05:06 Sodium 135 L Potassium 4.0 Chloride 94 L Carbon Dioxide 32 H BUN 12 Creatinine 0.94 Glucose 89 Calcium 9.2 Magnesium 2.2 - Imaging and Cardiology Echo: report reviewed Cardiac cath: report reviewed - EKG Interpretation EKG results cardiology: other (24 hour telemetry review shows average heart rate at 85 bpm. AV pacing, normal sinus rhythm, multiple episodes of NSVT. Longest run was 13 beats long.) Consult Discharge Plan - Plan Referrals: Susan Navarro [Primary Care Provider] - 07/15/16 11:00 am Jame Bland MD [Partnered Physician] - (CALLED AND LEFT A VOICE MAIL FOR YOSELIN NEWELL FOR A FOLLOW UP APPOINTMENT. CALLED TODAY TO GET A FOLLOW UP APPOINTMENT AND THEY SAID THEY WOULD CALL THE PATIENT AT HOME WITH HIS APPOINTMENT)
[2016-07-08] MEDS: *HR* LORazepam 1 MG TABLET PO PRN (08:02)
[2016-07-08] MEDS: *HR* Amiodarone 200 MG TABLET PO SCH ×2 (09:20→16:12)
[2016-07-08] MEDS: Spironolactone 25 MG TABLET PO SCH (09:21)
[2016-07-08] MEDS: Aspirin Enteric Coated 81 MG Tablet PO SCH (09:21)
[2016-07-08] MEDS: Furosemide 40 MG TABLET PO SCH (09:21)
[2016-07-08] MEDS: Cholecalciferol (D-3) 1,000 UNIT TABLET PO SCH (09:21)
[2016-07-08 16:37] VITALS: BP 85/54
--- NOTE | 2016-07-08 16:52 | Discharge Summary ---
Date of Encounter: 07/08/16 Time of Encounter: 15:00 - Discharge Diagnosis (1) Ventricular tachycardia Priority: Primary Status: Acute (2) Ischemic cardiomyopathy Priority: Secondary Status: Chronic (3) Chronic systolic heart failure Priority: Secondary Status: Chronic (4) COPD (chronic obstructive pulmonary disease) Priority: Secondary Status: Chronic Qualifiers: COPD type: chronic bronchitis Chronic bronchitis type: simple Qualified Code(s): J41.0 - Simple chronic bronchitis (5) Coronary artery disease Priority: Secondary Status: Chronic Qualifiers: Coronary Disease-Associated Artery/Lesion type: bypass graft [place] vs. transplanted heart: [place] heart Associated angina: without angina Qualified Code(s): I25.810 - Atherosclerosis of coronary artery bypass graft(s) without angina pectoris (6) GE junction carcinoma Priority: Secondary Status: Chronic - Discharge Medications Prescriptions: Amiodarone [Cordarone] 400 mg PO TID #46 tablet Atorvastatin [Lipitor] 40 mg PO HS #30 tablet Home Medications: Furosemide [Lasix] 40 mg PO BID #0 01/17/15 [History] Potassium Chloride [K-Tab ER] 20 meq PO BID #0 01/17/15 [History] Albuterol Sulfate [Albuterol Inhaler] 2 puff IH Q6HR PRN 01/18/15 [History] Budesonide/Formoterol 160/4.5 [Symbicort] 2 puff IH BIDR 01/18/15 [History] Ipratropium/Albuterol Neb [Duoneb] 3 ml IH Q4H PRN 01/18/15 [History] Spironolactone [Aldactone] 12.5 mg PO DAILY 01/18/15 [History] Carvedilol [Coreg] 12.5 mg PO BID 06/07/16 [History] Cholecalciferol (D-3) [Vitamin D] 1,000 unit PO BID 06/07/16 [History] Oxygen 2 l NS AD 06/16/16 [History] Aspirin Enteric Coated [Aspirin EC] 81 mg PO DAILY 07/01/16 [History] LORazepam [Ativan] 0.25 mg PO DAILY 07/01/16 [History] Magic Mouthwash 10 ml PO QID PRN 07/01/16 [History] Omeprazole [PriLOSEC] 20 mg PO DAILY 07/01/16 [History] Ondansetron HCl [Zofran] 4 mg PO Q6H PRN 07/01/16 [History] Prochlorperazine Maleate [Compazine] 10 mg PO Q6H PRN 07/01/16 [History] Propylene Glycol/Peg 400 [Systane 0.3-0.4% Eye Drops] 1 drop BOTH EYES QAM 07/01 [History] Amiodarone [Cordarone] 400 mg PO TID #46 tablet 07/08/16 [Rx] Atorvastatin [Lipitor] 40 mg PO HS #30 tablet 07/08/16 [Rx] Allergies/Adverse Reactions: Allergies codeine Adverse Reaction (Verified 07/01/16 19:08) Nausea Procedures/tests Complete & Pending: Procedures Performed prior 72 hours Category Date Time Status CL Cardiac Catheterization [CL] Routine Project Management Manager 07/06/16 09:37 Ordered Date of admission: 07/01/16 21:00 Primary care physician: Susan Navarro Consults: 07/01/16 22:27 Consult to Nutrition [CONS] Routine Comment: pt diagnosed with esophageal cancer Consulting Provider: NUTRITION Reason for Dietary Consult: MST Score 07/08/16 09:12 Consult to Occupational Therapy [CONS] Routine Comment: Evaluate, develop and implement POC Reason for Consult: Approaching discharge - off IV drips. Please evaluate for activity tolerance and safety of home vs rehab Consult to Physical Therapy [CONS] Routine Comment: Evaluate, develop and implement POC Reason for Consult: approaching discharge - off IV drips. Please evaluate for activity tolerance and safety of discharge home vs. ecf - Patient Status Disposition: Home, Self-Care Condition: Good Functional capacity at discharge: independent ambulation Overall status at discharge: patient is progressing back to baseline - Discharge Instructions Follow Up With: Susan Navarro [Primary Care Provider] - 07/15/16 11:00 am Jame Bland MD [Partnered Physician] - (CALLED AND LEFT A VOICE MAIL FOR YOSELIN NEWELL FOR A FOLLOW UP APPOINTMENT. CALLED TODAY TO GET A FOLLOW UP APPOINTMENT AND THEY SAID THEY WOULD CALL THE PATIENT AT HOME WITH HIS APPOINTMENT) - Diet and Activity Activity: resume usual activities as tolerated Diet: advance to your usual diet Interval History: Patient denies any chest pain, shortness of breath, dizziness or palpitations. He worked with physical therapy this morning without any issues. Hospital course: Mr. Latif is a 70 year old male with past medical history of COPD, CAD, CABG in 2002, ischemic cardiomyopathy, ICD, newly diagnosed gastroesophageal junction cancer who presented with a chief complain of generalized weakness and lightheadedness. He was found to have recurrent frequent episodes of nonsustained ventricular tachycardia. Device check showed 11 NSVT episode successfully treated with ATP. Troponins were negative. Sotalol was discontinued and he was started on oral amiodarone without any success stopping his NSVT. Patient was started on amiodarone drip and then switched to oral amiodarone 3 times a day with resolution of his NSVT. Patient became asymptomatic. He remained hemodynamically stable during the hospitalization. PLAN: Follow-up with Dr. Wolf at the cardiology clinic as outpatient. - Time Spent with Patient Total time spent providing and/or coordinating discharge services: - Constitutional Vitals: Temp Pulse Resp BP Pulse Ox 97.7 F 84 16 85/54 92 07/08/16 16:33 07/08/16 16:33 07/08/16 16:33 07/08/16 16:33 07/08/16 16:33 General appearance: Present: cooperative, A&O X 3, pleasant, no acute distress, underweight, answers questions appropriately - Neck Neck exam general surgery: Present: supple, trachea midline. Absent: lymphadenopathy - Respiratory Respiratory exam: Present: CTAB - Cardiovascular Cardiovascular exam: Present: RRR - GI/Abdominal GI/Abdominal exam: Present: normal bowel sounds, soft. Absent: distended, tenderness - Extremities Exam Extremities exam: Absent: pedal edema - Back Exam Back exam: Absent: CVA tenderness (L), CVA tenderness (R) - Neurological Exam Neurological exam: Present: alert, oriented X3, no focal deficits, strengths equal and symetr throughout. Absent: facial droop, speech deficit - Skin Skin exam: Absent: rash
--- NOTE | 2016-07-09 14:24 | Invasive Diagnostic Lab ---
Name: Isai Latif Date of Study: 07/06/2016 Date: 1945 Ht: 167.6 cm /66.0 in Medical Record#: [id number] Age: 70 Wt: 48.6 kg / 107.14 lb Account/Order#: [id number] Gender: Male BSA: 1.53 Order #: [id number] Fluoro Dose: 206 mGy BMI: 17.3 Procedure Physician: Kenroy Henley MD, FACC Referring MD: Referring MD: Procedures Performed: LEFT HEART CATH W/ GRAFTS Iliofemoral angiography Indications: vtach, Cardiomyopathy Impressions: There is severe three vessel coronary artery disease. LV- Lower limits of normal, EF30% S/P CABG 4 of 4 patent bypass grafts. Recommendations: Optimal medical therapy of patient's disease. Aggressive risk factor modification. History/Risk Factors: GERD CANCER Valvular heart disease Cardiomyopathy Hypertension CHF Cerebrovascular disease Chronic Lung Disease Prior CA Procedure Access obtained in the right Femoral artery by percutaneous puncture Complications: None Contrast: Isovue 104ml Closure Device: Manual Compression Hemodynamics: Pressures Site Systolic/ A Wave Diastolic/ V Wave End Diastolic/ Mean HR LV 91 13 18 85 AO 114 69 86 84 AO 81 60 71 91 AO 77 56 67 73 LV Ventriculography Ejection Method: LV Gram Ejection Fraction: 30% Wall Motion: MORAN Anterobasal Moderate Hypokinesis Anterolateral Moderate Hypokinesis Apical: Moderate Hypokinesis Inferoapical Moderate Hypokinesis Inferobasal Moderate Hypokinesis Coronary Dominance: right Lesion Findings/Interventions * Left Main Coronary Artery The LMCA is angiographically free of disease. * Left Anterior Descending There is a 80% stenosis in the Mid LAD. * Circumflex There is a 100% stenosis in the Mid Circumflex. * Right Coronary Artery There is a 100% stenosis in the Proximal RCA. Additional Findings: Grafts * The saphenous vein graft to the 1st Diagonal is patent. * The saphenous vein graft to the 1st Marginal is patent. * The saphenous vein graft to the Right PDA is patent. * The left internal mammary graft to the Mid LAD is patent. Angiogram: Visualized portion of the right iliofemoral artery without significant disease and appropriate sheath placement. Updated by [facility], RT (R) on 07/06/2016 5:39:51 PM Kenroy Henley MD, FACC electronically signed on 07/09/2016 2:17:09 PM with status of Final
== END 2016-07-08 18:45 | disposition home or self-care (01) | DRG 287 ==
LOC: EMEROO 19:00 → 2NNU 19:00
PROVIDERS: ADMIT Pediatrics; ATTEND Internal Medicine

== ENCOUNTER 2016-07-30 09:33 | Inpatient (IN) ==
[2016-07-30] MEDS ORDERED: 0.9 % Sodium Chloride 500 ML IVC ONE (09:53)
[2016-07-30] MEDS ORDERED: Ipratropium/Albuterol Neb 3 ML IH ONE (09:56)
--- NOTE | 2016-07-30 10:17 | Emergency Department Note ---
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 Failed outpatient therapy for bronchitis. States he has been on antibiotics and is getting more short of breath. Does have a history of COPD. Has a white sputum. Denies any fevers but reports increasing weakness. Pain Scale: 0 - Related Data Home Medications Medication Instructions Recorded Confirmed Furosemide [Lasix] 40 mg PO BID #0 01/17/15 07/30/16 Potassium Chloride [K-Tab ER] 20 meq PO BID #0 01/17/15 07/30/16 Albuterol Sulfate [Albuterol 2 puff IH Q6HR PRN 01/18/15 07/30/16 Inhaler] Budesonide/Formoterol 160/4.5 2 puff IH BIDR 01/18/15 07/30/16 [Symbicort] Ipratropium/Albuterol Neb [Duoneb] 3 ml IH Q4H PRN 01/18/15 07/30/16 Spironolactone [Aldactone] 12.5 mg PO DAILY 01/18/15 07/30/16 Carvedilol [Coreg] 12.5 mg PO BID 06/07/16 07/30/16 Cholecalciferol (D-3) [Vitamin D] 1,000 unit PO BID 06/07/16 07/30/16 Oxygen 2 l NS AD 06/16/16 07/30/16 LORazepam [Ativan] 0.5 mg PO DAILY 07/01/16 07/30/16 Magic Mouthwash 10 ml PO QID PRN 07/01/16 07/30/16 Omeprazole [PriLOSEC] 20 mg PO DAILY 07/01/16 07/30/16 Ondansetron HCl [Zofran] 4 mg PO Q6H PRN 07/01/16 07/30/16 Prochlorperazine Maleate 10 mg PO Q6H PRN 07/01/16 07/30/16 [Compazine] Amiodarone [Cordarone] 400 mg PO DAILY 07/30/16 07/30/16 Previous Rx's Medication Instructions Recorded Atorvastatin [Lipitor] 40 mg PO HS #30 tablet 07/08/16 Allergies Allergy/AdvReac Type Severity Reaction Status Date / Time lactose Allergy Diarrhea Verified 07/31/16 00:37 codeine AdvReac Nausea Verified 07/01/16 19:08 Review of Systems: Patient denies any fevers or chills. He does report shortness of breath with a productive cough for the past week. States his sputum is white in color. He denies any chest pain. He states he is using more oxygen than normal. States that he is generally weak cannot take care of himself at home. Denies any nausea vomiting or abdominal pain. Denies any diarrhea hematochezia hematuria or melena. Denies any swelling or edema to his extremities. All systems ED: reviewed and negative except as stated. Constitutional: Denies: fever Past Medical History - Past Medical History Attestation: Yes The following information was validated with the patient. Medical history: Reports: cancer, cardiomyopathy, CHF, COPD, coronary artery disease, CVA, GERD, GI bleed, hypertension, myocardial infarction, TIA, valvular heart disease, other Surgical history: Reports: angioplasty/stent, coronary bypass (CABG), herniorrhaphy, pacemaker/AICD, other, AICD, pacemaker Psychiatric history: Reports: no psych history - Social History Smoking Status: Former smoker Smokeless Tobacco Status: No Alcohol use: Reports: rarely Drug use: Reports: none Physical Exam - General Limitations: no limitations General appearance: alert, in distress (Appears mildly distressed due to respiratory status.) - Head Head exam: atraumatic, normocephalic, normal inspection - Eye Eye exam: Present: normal appearance, PERRL, EOMI. Absent: scleral icterus - ENT ENT exam: normal exam, normal oropharynx, mucous membranes moist - Neck Neck exam: Present: normal inspection, full ROM. Absent: trachea midline, meningismus, lymphadenopathy - Chest Chest inspection: Present: normal inspection, symmetric chest wall rise. Absent : tenderness, rash - Respiratory Respiratory exam: Present: respiratory distress (Appears mildly distressed), other (Rhonchi throughout.) - Cardiovascular Cardiovascular exam: Present: regular rate, normal rhythm, normal heart sounds - Abdominal Exam Abdominal exam: Present: soft, Non-Tender, normal bowel sounds. Absent: tenderness, distention, guarding, rebound, rigidity, organomegaly - Extremities Exam Extremities exam: Present: normal inspection, full ROM, normal capillary refill. Absent: tenderness, pedal edema - Back Exam Back exam: Present: normal inspection, full ROM - Neurological Exam Neurological exam: Present: alert, oriented X3 - Psychiatric Psychiatric exam: Present: normal affect, normal mood - Skin Skin exam: Present: warm, dry, intact, normal color. Absent: rash, cyanosis, diaphoresis, erythema, pallor Course Course Narrative: Elderly male patient being sent from the cancer Center for shortness of breath. He states he has been seen and treated for bronchitis for the past week however he is not getting better. He states he has been on antibiotics for this. He does wear oxygen at home and has been requiring more oxygen during the day. He generally only wears this intermittently but has been wearing it more often than normal. He does have a history of esophageal cancer. States that he does have COPD and was a smoker for several years but is quit smoking approximately 10 years ago. He does have a productive cough with a white sputum. He denies any fevers at home. He denies any chest pain. Lung sounds are rhonchorous throughout. He is not tachycardic at this time. His abdomen is soft and nontender he has no signs of edema to his extremities. He states that his by mouth intake has decreased since he has been sick. He also states he is very weak and does not think he can care for himself while he is at home. We will get a chest x-ray and basic lab workup from patient. Anticipate admission for this patient. He is agreeable to the plan at this time. - Consultations Consultation #1: Dr Kovacs accepted Pt in stable condition. She requested we place the Pt on azithromycin and rocephin. I have ordered this. Time: 12:31 Vital Signs Temperature 97.5 F L 07/30/16 09:37 Pulse Rate 78 07/30/16 09:37 Respiratory Rate 22 07/30/16 09:37 Blood Pressure 117/81 07/30/16 09:37 O2 Sat by Pulse Oximetry 97 07/30/16 09:37 Temperature 97.5 F L 07/31/16 06:51 Pulse Rate 71 07/31/16 06:51 Respiratory Rate 18 07/31/16 06:51 Blood Pressure 91/52 07/31/16 06:51 O2 Sat by Pulse Oximetry 93 07/31/16 06:51 Oxygen Delivery Oxygen Delivery Nasal Cannula Medical Decision Making - Medical Records Medical records reviewed: Yes I reviewed the patient's medical records. - Lab Data Lab results reviewed: Yes I reviewed the patient's lab results. Result diagrams: 07/31/16 02:14 07/31/16 02:14 Lab Results 07/30/16 07/30/16 07/30/16 Range/Units 10:27 10:27 10:27 WBC 1.1 L D (4.3-11.1) K/mcL RBC 3.79 L (4.19-5.50) M/mcL Hgb 12.0 L (12.9-16.9) g/dL Hct 35.3 L (37.5-50.1) % MCV 93.1 (83.0-100.0) fL MCH 31.7 (28.0-33.3) pg MCHC 34.0 (31.6-35.5) g/dL RDW 13.8 (11.5-14.5) % Plt Count 82 L (140-400) K/mcL MPV 11.2 (9.4-12.4) fL Seg Neutrophils % 42.0 % Band Neutrophils % 46.0 H (0-4) % Lymphocytes % 8.0 % Metamyelocytes % 4.0 H (0) % Neutrophils # 1.0 L (1.6-8.9) K/mcL Lymphocytes # 0.1 L (0.6-4.6) K/mcL Toxic Vacuolation Present A (Not Present) Platelet Estimate Decreased L (Normal) Large Platelets Present A (Not Present) Immature Plt Fraction 6.5 H (1.1-6.1) % Sodium 140 (136-145) mEq/L Potassium 3.8 (3.5-4.5) mEq/L Chloride 101 (98-109) mEq/L Carbon Dioxide 32 H (19-29) mEq/L BUN 32 H (8-26) mg/dL Creatinine 0.82 (0.72-1.25) mg/dL Est GFR ( Amer) > 60 (> 60) Est GFR (Non-Af Amer) > 60 (> 60) BUN/Creatinine Ratio 39 H (6-26) Glucose 93 (70-99) mg/dL Calculated Osmolality 297 (280-300) Lactic Acid 1.0 (0.5-2.2) mmol/L Calcium 8.8 (8.6-10.8) mg/dL Total Bilirubin 0.9 (0.2-1.2) mg/dL AST 17 (5-34) Units/L ALT 23 (0-55) Units/L Alkaline Phosphatase 54 (38-126) Units/L Troponin I (0-0.03) ng/mL Serum Total Protein 5.6 L (6.0-8.3) g/dL Albumin 2.9 L (3.5-5.0) g/dL Globulin 2.7 (2.4-3.5) g/dL Albumin/Globulin Ratio 1.1 (1.1-2.2) /11/07 Range/Units 10:27 WBC (4.3-11.1) K/mcL RBC (4.19-5.50) M/mcL Hgb (12.9-16.9) g/dL Hct (37.5-50.1) % MCV (83.0-100.0) fL MCH (28.0-33.3) pg MCHC (31.6-35.5) g/dL RDW (11.5-14.5) % Plt Count (140-400) K/mcL MPV (9.4-12.4) fL Seg Neutrophils % % Band Neutrophils % (0-4) % Lymphocytes % % Metamyelocytes % (0) % Neutrophils # (1.6-8.9) K/mcL Lymphocytes # (0.6-4.6) K/mcL Toxic Vacuolation (Not Present) Platelet Estimate (Normal) Large Platelets (Not Present) Immature Plt Fraction (1.1-6.1) % Sodium (136-145) mEq/L Potassium (3.5-4.5) mEq/L Chloride (98-109) mEq/L Carbon Dioxide (19-29) mEq/L BUN (8-26) mg/dL Creatinine (0.72-1.25) mg/dL Est GFR ( Amer) (> 60) Est GFR (Non-Af Amer) (> 60) BUN/Creatinine Ratio (6-26) Glucose (70-99) mg/dL Calculated Osmolality (280-300) Lactic Acid (0.5-2.2) mmol/L Calcium (8.6-10.8) mg/dL Total Bilirubin (0.2-1.2) mg/dL AST (5-34) Units/L ALT (0-55) Units/L Alkaline Phosphatase (38-126) Units/L Troponin I 0.01 (0-0.03) ng/mL Serum Total Protein (6.0-8.3) g/dL Albumin (3.5-5.0) g/dL Globulin (2.4-3.5) g/dL Albumin/Globulin Ratio (1.1-2.2) - Radiology Data Radiology results reviewed: Yes I reviewed the patient's radiology results. Chest X-Ray 07/30/16 09:51 IMPRESSION: 1. Emphysematous changes with trace left pleural effusion. 2. No other acute cardiopulmonary findings. D/ / Maria De Jesus Boston MD / Maria De Jesus Boston MD Interpreting Provider: Maria De Jesus Boston MD Chest CT 07/30/16 12:58 IMPRESSION: Bronchitis with right lower lobe atelectasis on a background of advanced pulmonary emphysema Stable left lower lobe nodule Esophageal dilatation with suspected wall thickening of the distal esophagus for which esophageal mass should be considered D/ / Javier Robert MD / Javier Robert MD Interpreting Provider: Javier Robert MD - EKG Data EKG #1 EKG attestation: Yes I reviewed and interpreted this EKG. EKG results narrative: Ventricularly paced rhythm at a rate of 69. HI interval is 164. QRS duration is 167. QTC is 468. QTC is 488. No signs of acute ischemia. No previous EKG to compare to. Attestation Statement - Attestation Attestation: I, Shahzad Mar, examined this patient and my medical decision-making was reviewed with the SOCIOLOGY FACULTY MEMBER/PA/Advanced Practice Nurse/Resident Physician. I agree with the documented findings, disposition and treatment plan as described except to the extent set forth below. 7-year-old male presents with concerns of increasing shortness of breath and weakness. Patient states he been treated for bronchitis with antibiotics for the past week without improvement of his symptoms. Patient was sent to the emergency department from the cancer center after his radiation treatment. Patient states that he has also taking chemotherapy but is unsure when his last dosing was. Patient denies any changes in his chemotherapy. Denies a history of neutropenia in the past. Patient states he is unable to perform his activities of daily living secondary to his weakness.
[2016-07-30 10:36] LABS: Hematocrit 35.3 % (37.5-50.1); Immature Platelets 6.5 % (1.1-6.1); Lymphocytes # 0.1 K/mcL (0.6-4.6); Mean Corpuscular Hemoglobin 31.7 pg (28.0-33.3); Mean Corpuscular Volume 93.1 fL (83.0-100.0); Mean Platelet Volume 11.2 fL (9.4-12.4); Red Blood Count 3.79 M/mcL (4.19-5.50); Red Cell Distribution Width 13.8 % (11.5-14.5)
[2016-07-30 10:37] LABS: Platelet Count 82 K/mcL (140-400)
[2016-07-30 10:51] LABS: Alanine Aminotransferase 23 Units/L (0-55); Albumin 2.9 g/dL (3.5-5.0); Albumin/Globulin Ratio 1.1 (1.1-2.2); Alkaline Phosphatase 54 Units/L (38-126); Aspartate Amino Transferase 17 Units/L (5-34); BUN/Creatinine Ratio 39 (6-26); Bilirubin,Total 0.9 mg/dL (0.2-1.2); Blood Urea Nitrogen 32 mg/dL (8-26); Calcium 8.8 mg/dL (8.6-10.8); Carbon Dioxide 32 mEq/L (19-29); Chloride 101 mEq/L (98-109); Globulin 2.7 g/dL (2.4-3.5); Glucose 93 mg/dL (70-99); Osmolality,Calculated 297 (280-300); Potassium 3.8 mEq/L (3.5-4.5); Sodium 140 mEq/L (136-145); Total Protein 5.6 g/dL (6.0-8.3); eGFR For African Americans > 60 (> 60); eGFR For Non-African Americans > 60 (> 60)
[2016-07-30 10:58] LABS: Large Platelets Present (Not Present); Platelet Estimate Decreased (Normal); Toxic Vacuolation Present (Not Present)
[2016-07-30] MEDS ORDERED: Azithromycin 500 MG in D5% in Water 250 ML IVPB ONE ×2 (12:24→17:00)
[2016-07-30] MEDS ORDERED: Ringers Solution, Lactated 500 ML IVC ONE (12:47)
[2016-07-30] MEDS ORDERED: Ringers Solution, Lactated 1,000 ML IVC ONE (13:00)
[2016-07-30] MEDS ORDERED: *HR* Morphine 2 MG/ML SYRINGE IVP PRN (13:00)
[2016-07-30] MEDS ORDERED: *HR* HYDROcodone/Acet 5/325 mg TABLET PO PRN (13:00)
[2016-07-30] MEDS ORDERED: Acetaminophen 325 MG TABLET PO PRN (13:00)
[2016-07-30] MEDS ORDERED: Naloxone 0.4 MG/ML INJ IVP PRN (13:00)
[2016-07-30] MEDS ORDERED: Ringers Solution, Lactated 1,000 ML IVC SCH (13:00)
[2016-07-30] MEDS ORDERED: Ketorolac 30 MG/ML VIAL IVP PRN (13:07)
[2016-07-30] MEDS: Ipratropium/Albuterol Neb 3 ML IH SCH ×4 (13:21→23:22)
--- NOTE | 2016-07-30 13:25 | Internal Med History&Physical ---
<AnaLalito saldana - Last Filed: 07/30/16 17:43> Date of Encounter: 07/30/16 Time of Encounter: 12:30 Assessment and Plan (1) Generalized weakness Current visit: Yes Status: Acute Assess: Mr. Latif presents with chief complaint of generalized weakness which has become worse over the past two days. Patient reports that he is taking chemo and radiation due to esophageal cancer diagnosis. Patient states that he had nausea a week ago due to treatment, but has since resolved. Mr. Latif reports he can become weak from chemo/radiation treatments, but this is much worse. Plan: IV fluids for dehydration ordered Bedrest ordered Falls precautions ordered [id number] ordered Supplemental O2 ordered Continuous cardiac telemetry ordered (2) Shortness of breath Current visit: Yes Status: Acute Assess: Patient presents with current symptoms of SOB related to acute exacerbation of chronic COPD. Patient is former smoker who reports he quit smoking approximately 10 years ago. Plan: DuoNebs ordered Supplemental O2 ordered with titration if SpO2 <92% Continuous SpO2 monitoring Falls precautions/bedrest/Ed-tmjw-erkrxz only status (3) Bronchitis Current visit: Yes Status: Acute Assess: Patient reports he was diagnosed with bronchitis presently 1 week [facility] but cannot remember what antibiotics he was prescribed. Plan: IV Rocephin ordered IV Azithromycin ordered Sputum culture ordered Supplemental O2 ordered Continuous SPO2 monitoring (4) Dizziness Current visit: Yes Status: Acute Assess: Patient presents with acute SOB and resulting dizziness related to recent diagnosis of bronchitis. Plan: IV fluids for dehydration ordered Bedrest ordered Falls precautions ordered [id number] ordered Supplemental O2 ordered Continuous cardiac telemetry ordered (5) Tick bite Current visit: Yes Status: Acute Assess: Patient presents with several tick bites (2 located on lower left vergara, for located on upper thighs bilaterally). Patient reports these are recent tick bites and he removed ticks himself. Plan: Lyme disease testing stat Anaplasma testing ordered stat Babesia testing ordered stat Qualifiers: Encounter type: initial encounter Qualified Code(s): W57.XXXA - Bitten or stung by nonvenomous insect and other nonvenomous arthropods, initial encounter (6) CHF (congestive heart failure) Current visit: Yes Status: Chronic Assess: Patient presents with history of chronic CHF. Patient also presents with current dehydration. Plan: Judicious use of IV fluids ordered for dehydration status Hold Lasix, but will resume if patient shows signs of fluid overload Continuous cardiac telemetry ordered Qualifiers: Congestive heart failure type: systolic Congestive heart failure chronicity : chronic Qualified Code(s): I50.22 - Chronic systolic (congestive) heart failure (7) COPD (chronic obstructive pulmonary disease) Current visit: Yes Status: Chronic Assess: Patient presents with history of chronic obstructive pulmonary disease. Plan: DuoNebs ordered Supplemental O2 ordered with titration if SpO2 <92% Continuous SpO2 monitoring Falls precautions/bedrest/Ob-beiz-upotwa only status Will consider steroids to help with COPD and bronchitis diagnosis if DuoNebs are not enough Qualifiers: COPD type: chronic bronchitis Chronic bronchitis type: simple Qualified Code(s): J41.0 - Simple chronic bronchitis (8) DVT prophylaxis Current visit: No Status: Acute Assess: Patient placed on DVT prophylaxis per admission protocol and bedrest status. Plan: Heparin 5,000 units SQ Q8 ordered Monitor patient for signs of bleeding Repeat H/H Internal Medicine - H&P: HPI Chief complaint: Generalized weakness Admitted From: Emergency Dept Plans for Post Hospital Care: Home History of present illness: Mr. Latif is a 70 year old male who presents from the ED with chief complaint of generalized weakness which has become worse over the past two days. Patient reports that he is taking chemo and radiation due to esophageal cancer diagnosis. Patient states that he had nausea a week ago due to treatment , but has since resolved. Mr. Latif reports shortness of breath, cough with sputum production that is white in color, and denies fever or recent illness. He states that his PCP at the [facility] diagnosed him with bronchitis last week and put him on antibiotics but Mr. Latif cannot remember what antibiotic it is because he takes so many medications. Patient also reports several recent tick bites on his legs (two on lower left vergara and 4 on upper thighs bilaterally). Patient states he has an outdoor dog and pulled the ticks off himself when he noticed them. Patient denies nausea, vomiting, abdominal pain, diarrhea, hematochezia, hematuria, melena, swelling or edema to extremities, or chest pain. Mr. Latif has a history of esophageal cancer, cardiomyopathy, CHF, COPD, CAD, CVA, GERD, GI bleed, hypertension, [place], TIA, valvular heart disease. Patient had recent angioplasty last month but reports no stent placement. Patient also reports coronary bypass and pacemaker AICD placement. Lung sounds are rhonchorous throughout bilaterally on examination. Patient is to be admitted as observation status with continuous cardiac telemetry, CT of chest w/ o contrast, sputum cultures, Lyme disease/Anaplasma/Babesia testing, IV Rocephin and Azithromycin for bronchitis coverage, and falls precautions/bedrest /tl-cmij-uyaltl only due to extreme weakness. PT/OT/SW consults placed. Patient to be monitored closely for respiratory distress/decline. Past Med Surg Social Fam HX - Past Medical History Source: patient Medical history: cancer, cardiomyopathy, CHF, COPD, coronary artery disease, CVA , GERD, GI bleed, hypertension, myocardial infarction, TIA, valvular heart disease, other Psychiatric history: no psych history - Past Surgical History Surgical History: angioplasty/stent, coronary bypass (CABG), herniorrhaphy, pacemaker/AICD, other, AICD, pacemaker - Social History Smoking Status: Former smoker Smokeless Tobacco Status: No Alcohol use: rarely Drug use: none Occupational status: retired Current living situation: Home - Independent Recent Out of Country Travel Within the Last 8 Weeks: No Exposure or Possible Exposure to Illness During Travel: No - Family History Father Adopted: No Race: Family Member Ethnicity: Non- Living Status: Age at : 65 Cause of : Massive [place] Hx Family Cardiac Disorders: Yes ([place]) Hx Family Respiratory Disorders: Yes (Emphysema) Hx Family Cancer: No Hx Family GI Disorders: No Hx Family Endocrine Disorder: No Hx Family Neuromuscular Disorders: No Hx Family Neurologic Disorders: No Hx Family HEENT Disorders: No Hx Family Autoimmune Disorders: No Mother Adopted: No Race: Family Member Ethnicity: Non- Living Status: Age at : 65 Cause of : Lung cancer Hx Family Cardiac Disorders: No Hx Family Respiratory Disorders: Yes (Emphysema) Hx Family Cancer: Yes (Lung) Hx Family GI Disorders: No Hx Family Endocrine Disorder: No Hx Family Neuromuscular Disorders: No Hx Family Neurologic Disorders: No Hx Family HEENT Disorders: No Hx Family Autoimmune Disorders: No Internal Medicine - H&P: Meds Furosemide [Lasix] 40 mg PO BID #0 01/17/15 [History] Potassium Chloride [K-Tab ER] 20 meq PO BID #0 01/17/15 [History] Albuterol Sulfate [Albuterol Inhaler] 2 puff IH Q6HR PRN 01/18/15 [History] Budesonide/Formoterol 160/4.5 [Symbicort] 2 puff IH BIDR 01/18/15 [History] Ipratropium/Albuterol Neb [Duoneb] 3 ml IH Q4H PRN 01/18/15 [History] Spironolactone [Aldactone] 12.5 mg PO DAILY 01/18/15 [History] Carvedilol [Coreg] 12.5 mg PO BID 06/07/16 [History] Cholecalciferol (D-3) [Vitamin D] 1,000 unit PO BID 06/07/16 [History] Oxygen 2 l NS AD 06/16/16 [History] LORazepam [Ativan] 0.5 mg PO DAILY 07/01/16 [History] Magic Mouthwash 10 ml PO QID PRN 07/01/16 [History] Omeprazole [PriLOSEC] 20 mg PO DAILY 07/01/16 [History] Ondansetron HCl [Zofran] 4 mg PO Q6H PRN 07/01/16 [History] Prochlorperazine Maleate [Compazine] 10 mg PO Q6H PRN 07/01/16 [History] Atorvastatin [Lipitor] 40 mg PO HS #30 tablet 07/08/16 [Rx] Amiodarone [Cordarone] 400 mg PO DAILY 07/30/16 [History] Allergies lactose Allergy (Verified 07/31/16 00:37) Diarrhea codeine Adverse Reaction (Verified 07/01/16 19:08) Nausea All Systems PM: A 10-system review of systems was performed and is negative for pertinent findings except as documented above in the HPI. - Constitutional Constitutional: fatigue, weakness, weight loss (Related to chemo/radiation tx) - EENT Eyes: no change in vision, no discharge, no pain, no photophobia Ears: no ear discharge, no ear pain, no tinnitus Nose, mouth and throat: no dysphagia, no nasal discharge, no neck pain, no sore throat - Breasts Breasts: as per HPI - Cardiovascular Cardiovascular ROS IM: as per HPI, dyspnea, dyspnea on exertion, no chest pain, no diaphoresis, no lightheadedness, no palpitations, no syncope - Respiratory Respiratory: as per HPI, cough, dyspnea, dyspnea on exertion, chest congestion, excessive phlegm production - Gastrointestinal Gastrointestinal: no abdominal pain, no diarrhea, no hematemesis, no hematochezia, no melena, no nausea, no vomiting - Genitourinary Genitourinary ROS male: as per HPI - Musculoskeletal Musculoskeletal ROS IM: no numbness, no tingling - Integumentary Integumentary IM: as per HPI, other (6 tick bites (2 on lower left vergara and 4 on upper thighs bilaterally)) - Neurological Neurological ROS: no confusion, no convulsions, no focal weakness, no numbness, no tingling, no tremor(s) - Psychiatric Psychiatric: as per HPI - Endocrine Endocrine IM: as per HPI - Hematologic/Lymphatic Hematologic/Lymphatic: no easy bruising - Allergic/Immunologic Allergic/Immunologic: as per HPI - Constitutional Vitals: Temp Pulse Resp BP Pulse Ox 97.5 F L 72 16 104/77 96 07/30/16 09:37 07/30/16 12:49 07/30/16 12:56 07/30/16 12:56 07/30/16 12:49 General appearance: Present: cooperative, mild distress, A&O X 3, pleasant, underweight, loss of weight, answers questions appropriately - Head Head exam: Present: atraumatic, normocephalic - Eye Eye exam: Present: PERRL, conjuntiva pink, sclera anicteric Pupils: Present: PERRL - ENT ENT exam: Present: mucous membranes dry, normal external ear exam - Neck Neck exam general surgery: Present: supple, trachea midline. Absent: lymphadenopathy - Respiratory Respiratory exam: Present: rhonchi (All lobes bilaterally) - Cardiovascular Cardiovascular exam: Present: RRR, +S1, +S2. Absent: diastolic murmur, gallop, rubs, systolic murmur - GI/Abdominal GI/Abdominal exam: Present: normal bowel sounds, soft, no peritoneal signs. Absent: distended, tenderness - Rectal Rectal exam: Present: deferred - Additional comments: exam deferred. - Extremities Exam Extremities exam: Present: radial pulses palpable and symetrical. Absent: calf tenderness, cyanotic, pedal edema - Back Exam Back exam: Present: normal inspection - Neurological Exam Neurological exam: Present: CN II-XII intact, oriented X3, no focal deficits. Absent: pronater drift, facial droop, speech deficit - Psychiatric Psychiatric exam: Present: normal affect, normal mood - Skin Skin exam: Present: dry, intact Internal Med - H&P Results - Labs CBC & Chem 7: 07/30/16 14:10 07/30/16 10:27 - EKG Data EKG comments: 07/30/16 13:35 EKG dated 07/30/16 shows electronic atrial pacemaker, electronic ventricular pacemaker. - Diagnostic Studies Chest x-ray Additional comments: Impressions Chest X-Ray 07/30/16 09:51 IMPRESSION: 1. Emphysematous changes with trace left pleural effusion. 2. No other acute cardiopulmonary findings. D/ / Maria De Jesus Boston MD / Maria De Jesus Boston MD Interpreting Provider: Maria De Jesus Boston MD <Erma Corley E - Last Filed: 07/31/16 08:54> Date of Encounter: 07/31/16 Internal Medicine - H&P: HPI History of present illness: Mr. Latif is a 70 year old male All Systems PM: A 10-system review of systems was performed and is negative for pertinent findings except as documented above in the HPI. - Constitutional Vitals: Temp Pulse Resp BP Pulse Ox 97.5 F L 71 18 91/52 93 07/31/16 06:51 07/31/16 06:51 07/31/16 06:51 07/31/16 06:51 07/31/16 06:51 Internal Med - H&P Results - Labs CBC & Chem 7: 07/31/16 02:14 07/31/16 02:14 Labs: Short CBC 07/30/16 07/31/16 Range/Units 14:10 02:14 WBC 0.4 L* D (4.3-11.1) K/mcL Hgb 12.2 L 10.3 L D (12.9-16.9) g/dL Hct 36.4 L 31.0 L (37.5-50.1) % Plt Count 64 L (140-400) K/mcL Neutrophils # 0.3 L (1.6-8.9) K/mcL BMP 07/31/16 02:14 Sodium 138 Potassium 3.8 Chloride 103 Carbon Dioxide 30 H BUN 25 Creatinine 0.69 L Glucose 101 H Calcium 8.1 L Liver Function 07/31/16 Range/Units 02:14 Total Bilirubin 0.6 (0.2-1.2) mg/dL AST 13 (5-34) Units/L ALT 17 (0-55) Units/L Alkaline Phosphatase 43 (38-126) Units/L Albumin 2.3 L D (3.5-5.0) g/dL Urine 07/30/16 Range/Units 17:20 Urine Color Yellow (Yellow) Urine Clarity Clear (Clear) Urine pH 6.0 (5.0-8.0) pH Units Ur Specific [place] 1.026 H (1.010-1.025) Urine Protein Trace (Neg-Trace) mg/dL Urine Glucose (UA) Normal (Normal) mg/dL - Impressions ITS Impressions Chest CT 07/30/16 12:58 IMPRESSION: Bronchitis with right lower lobe atelectasis on a background of advanced pulmonary emphysema Stable left lower lobe nodule Esophageal dilatation with suspected wall thickening of the distal esophagus for which esophageal mass should be considered D/ / Javier Robert MD / Javier Robert MD Interpreting Provider: Javier Robert MD - Attending Attestation This is a late entry for a patient I examined and reviewed laboratory, imaging and all diagnostic data on 07/30/16. My medical decision-making was reviewed with Lalito Zavaleta - ANDRES. I agree with the documented findings, disposition and treatment plan as described above. History and exam by me shows: diffuse rhonchi and wheezes. CT chest shows bronchitis, emphysema and atelectasis. ANC 1. Started on IV Ceftriazone, solumedrol and Neupogen x1.
[2016-07-30 14:36] LABS: Hematocrit 36.4 % (37.5-50.1); Hemoglobin 12.2 g/dL (12.9-16.9)
[2016-07-30] MEDS: *HR* Heparin 5,000 UNIT/ML VIAL SQ SCH ×2 (15:11→22:46)
[2016-07-30] MEDS: Ondansetron 4 MG/2 ML VIAL IVP PRN (16:13)
[2016-07-30] MEDS: Ringers Solution, Lactated 1,000 ML IVC SCH (16:30)
[2016-07-30 17:35] LABS: Bilirubin,Urine Negative (Negative); Blood,Urine Negative (Negative); Clarity,Urine Clear (Clear); Color,Urine Yellow (Yellow); Glucose,Urine (UA) Normal (Normal); Ketones,Urine Negative (Negative); Leukocyte Esterase,Urine Negative (Negative); Nitrite,Urine Negative (Negative); Protein,Urine Trace mg/dL (Neg-Trace); Specific Gravity,Urine 1.026 (1.010-1.025); Urobilinogen,Urine Normal (Normal)
[2016-07-30 17:37] LABS: Bacteria,Urine None Seen per hpf (None-Few); Hyaline Casts,Urine None Seen per lpf (None-Few); RBC,Urine 0-3 per hpf (0-3); Squamous Epithelial Cell,Urine Many per lpf (None-Few); WBC,Urine 0-3 per hpf (0-3)
[2016-07-30] MEDS: Budesonide/Formoterol 160/4.5 MDI IH SCH (19:58)
[2016-07-31 02:58] LABS: Red Cell Distribution Width 13.9 % (11.5-14.5)
[2016-07-31 02:59] LABS: Eosinophils # 0.1 K/mcL (0.0-0.6); Eosinophils % 15.9 %; Hemoglobin 10.3 g/dL (12.9-16.9); Immature Granulocytes % 2.3 % (0-4); Lymphocytes # 0.1 K/mcL (0.6-4.6); Lymphocytes % 11.4 %; Mean Corpuscular HGB Conc 33.2 g/dL (31.6-35.5); Mean Corpuscular Volume 93.4 fL (83.0-100.0); Mean Platelet Volume 11.8 fL (9.4-12.4); Monocytes % 2.3 %; Neutrophils # 0.3 K/mcL (1.6-8.9); Red Blood Count 3.32 M/mcL (4.19-5.50); Segmented Neutrophils % 68.1 %
[2016-07-31 03:02] LABS: Platelet Count 64 K/mcL (140-400)
[2016-07-31 03:06] LABS: Prothrombin Time 10.9 Seconds (9.4-12.1)
[2016-07-31 03:17] LABS: Alanine Aminotransferase 17 Units/L (0-55); Alkaline Phosphatase 43 Units/L (38-126); Aspartate Amino Transferase 13 Units/L (5-34); BUN/Creatinine Ratio 36 (6-26); Bilirubin,Total 0.6 mg/dL (0.2-1.2); Blood Urea Nitrogen 25 mg/dL (8-26); Calcium 8.1 mg/dL (8.6-10.8); Carbon Dioxide 30 mEq/L (19-29); Chloride 103 mEq/L (98-109); Chol/HDL Ratio 2.4 (0-4.9); Cholesterol 119 mg/dL (< 200); Globulin 2.3 g/dL (2.4-3.5); Glucose 101 mg/dL (70-99); HDL Cholesterol 50 mg/dL (40-59); LDL Cholesterol,Calculated 56 mg/dL (0-99); Osmolality,Calculated 291 (280-300); Phosphorous 2.6 mg/dL (2.3-4.7); Potassium 3.8 mEq/L (3.5-4.5); Sodium 138 mEq/L (136-145); Total Protein 4.6 g/dL (6.0-8.3); Triglycerides 64 mg/dL (< 150); eGFR For African Americans > 60 (> 60); eGFR For Non-African Americans > 60 (> 60)
[2016-07-31 03:18] LABS: Albumin 2.3 g/dL (3.5-5.0)
[2016-07-31 03:29] LABS: Large Platelets Present (Not Present); Platelet Estimate Decreased (Normal); Reactive Lymphocytes Present (Not Present)
[2016-07-31] MEDS: Ipratropium/Albuterol Neb 3 ML IH SCH ×6 (04:17→23:52)
[2016-07-31] MEDS: *HR* Heparin 5,000 UNIT/ML VIAL SQ SCH (05:11)
[2016-07-31] MEDS: *HR* HYDROcodone/Acet 5/325 mg TABLET PO PRN (07:50)
[2016-07-31] MEDS: Budesonide/Formoterol 160/4.5 MDI IH SCH ×2 (08:02→19:56)
[2016-07-31] MEDS: Ringers Solution, Lactated 1,000 ML IVC SCH (09:29)
[2016-07-31] MEDS: *HR* LORazepam 0.5 MG TABLET PO SCH (09:29)
[2016-07-31] MEDS: Pantoprazole 40 MG VIAL IVP SCH (09:30)
[2016-07-31] MEDS: *HR* Amiodarone 200 MG TABLET PO SCH (09:30)
[2016-07-31] MEDS ORDERED: Ringers Solution, Lactated 1,000 ML IVC SCH (13:05)
--- NOTE | 2016-07-31 14:14 | Internal Med Progress Note ---
Date of Encounter: 07/31/16 Time of Encounter: 11:45 - Assessment and plan (1) COPD (chronic obstructive pulmonary disease) Current Visit: Yes Status: Acute Assessment and plan: COPD exacerbation with emphysema and bronchitis. On bronchodilator nebs and O2 supplementation. Will also start patient on prednisone taper. Moderate risk for complications Qualifiers: COPD type: chronic bronchitis Chronic bronchitis type: simple Qualified Code(s): J41.0 - Simple chronic bronchitis (2) Pancytopenia Current Visit: Yes Status: Acute Assessment and plan: With worsening leukopenia. From chemotherapy and radiation. Patient received Neupogen yesterday. Will consult hematology oncology for further recommendations. (3) Bronchitis Current Visit: Yes Status: Acute Assessment and plan: Treating with IV antibiotics due to neutropenia. (4) CHF (congestive heart failure) Current Visit: Yes Status: Chronic Assessment and plan: Given dehydration, patient's Lasix is currently being held. Acute heart failure Qualifiers: Congestive heart failure type: systolic Congestive heart failure chronicity : chronic Qualified Code(s): I50.22 - Chronic systolic (congestive) heart failure (5) Dizziness Current Visit: Yes Status: Acute Assessment and plan: From dehydration. Improving. (6) DVT prophylaxis Current Visit: No Status: Acute (7) Generalized weakness Current Visit: Yes Status: Acute Assessment and plan: Due to chemotherapy and dehydration. Will consult physical therapy for evaluation. (8) Tick bite Current Visit: Yes Status: Acute Assessment and plan: Lyme antibody was negative. 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 No fever chills or night sweats reported. Continues to have some cough and sputum production. No chest pain. - Constitutional Vitals: Temp Pulse Resp BP Pulse Ox 98.0 F 69 18 94/61 93 07/31/16 11:25 07/31/16 11:25 07/31/16 11:56 07/31/16 11:25 07/31/16 11:56 General appearance: Present: cooperative, mild distress, A&O X 3, pleasant, underweight, loss of weight, answers questions appropriately - Respiratory Respiratory exam: Present: prolonged expiratory phase. Absent: accessory muscle use, rales, rhonchi, wheezes - Cardiovascular Cardiovascular exam: Present: RRR, +S1, +S2. Absent: diastolic murmur, gallop, rubs, systolic murmur - GI/Abdominal GI/Abdominal exam: Present: normal bowel sounds, soft, no peritoneal signs. Absent: distended, tenderness - Extremities Exam Extremities exam: Present: warm, radial pulses palpable and symetrical. Absent : calf tenderness, cyanotic, pedal edema - Neurological Exam Neurological exam: Present: alert, oriented X3, no focal deficits. Absent: facial droop, speech deficit - Skin Skin exam: Present: dry, intact, pallor Internal Medicine: Result - Labs CBC & Chem 7: 07/31/16 02:14 07/31/16 02:14 Labs: Short CBC 07/30/16 07/31/16 Range/Units 14:10 02:14 WBC 0.4 L* D (4.3-11.1) K/mcL Hgb 12.2 L 10.3 L D (12.9-16.9) g/dL Hct 36.4 L 31.0 L (37.5-50.1) % Plt Count 64 L (140-400) K/mcL Neutrophils # 0.3 L (1.6-8.9) K/mcL BMP 07/31/16 02:14 Sodium 138 Potassium 3.8 Chloride 103 Carbon Dioxide 30 H BUN 25 Creatinine 0.69 L Glucose 101 H Calcium 8.1 L Liver Function 07/31/16 Range/Units 02:14 Total Bilirubin 0.6 (0.2-1.2) mg/dL AST 13 (5-34) Units/L ALT 17 (0-55) Units/L Alkaline Phosphatase 43 (38-126) Units/L Albumin 2.3 L D (3.5-5.0) g/dL Urine 07/30/16 Range/Units 17:20 Urine Color Yellow (Yellow) Urine Clarity Clear (Clear) Urine pH 6.0 (5.0-8.0) pH Units Ur Specific [place] 1.026 H (1.010-1.025) Urine Protein Trace (Neg-Trace) mg/dL Urine Glucose (UA) Normal (Normal) mg/dL - ABG Interpretation ABG results: PT/INR, D-dimer PT 10.9 Seconds (9.4-12.1) 07/31/16 02:14 - VTE Documentation of Mechanical Device: Intermittent pneumatic compression device Consult Discharge Plan - Plan [facility]errals: [facility] [Primary Care Provider[facility] - - Attending Attestation This document has been at least partially created by [employer] recognition technology by Dr. Lunsford. Errors in grammar, wording or other phrases may exist. If errors are found after the documentation is signed, they will be addressed individually in the addendum section of this document when appropriate.
[2016-07-31] MEDS: Ondansetron 4 MG/2 ML VIAL IVP PRN (15:53)
[2016-07-31] MEDS: predniSONE 20 MG TABLET PO SCH (15:54)
--- NOTE | 2016-07-31 16:05 | Oncology Inp Consult Note ---
Date of Encounter: 07/31/16 Time of Encounter: 16:00 Assessment and Plan (1) GE junction carcinoma Status: Chronic Assessment and plan: Patient is currently on concurrent chemoradiation therapy, chemotherapy 2 doses including carboplatin and Taxol with daily radiation therapy- neutropenia , thrombocytopenia likely from chemotherapy/bronchitis episode, no PE. Status post Neupogen 1 dose, worsening neutropenia. Continue antibiotics. Clinically stable, and improving. Hold off on neupogen support. Nausea without emesis on meds. NOt symptomatic with heart burn or pain Wkness-Dehydration/without renal insufficiency. Nutrition evaluation/ supplementation. Plan d/w patient who states understanding of above - Data of Consult Requesting Physician: Vianey Lunsford MD [facility] Provider[facility] - Consult Narrative Reason for consult: esophageal ca History of present illness: Mr. 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 Chest CT scan showed a stable lung nodule, emphysema right lower lobe atelectasis bronchitis patient being treated with antibiotics and steroids. He was administered Neupogen 1 dose by hospitalist team. Past Med Surg Social Fam HX - Past Medical History Medical history: cancer, cardiomyopathy, CHF, COPD, coronary artery disease, CVA , GERD, GI bleed, hypertension, myocardial infarction, TIA, valvular heart disease, other Psychiatric history: no psych history - Past Surgical History Surgical History: angioplasty/stent, coronary bypass (CABG), herniorrhaphy, pacemaker/AICD, other, AICD, pacemaker - Social History Smoking Status: Former smoker Smokeless Tobacco Status: No Alcohol use: rarely Drug use: none - Family History Father Adopted: No Race: Family Member Ethnicity: Non- Living Status: Age at : 65 Cause of : Massive [place] Hx Family Cardiac Disorders: Yes ([place]) Hx Family Respiratory Disorders: Yes (Emphysema) Hx Family Cancer: No Hx Family GI Disorders: No Hx Family Endocrine Disorder: No Hx Family Neuromuscular Disorders: No Hx Family Neurologic Disorders: No Hx Family HEENT Disorders: No Hx Family Autoimmune Disorders: No Mother Adopted: No Race: Family Member Ethnicity: Non- Living Status: Age at : 65 Cause of : Lung cancer Hx Family Cardiac Disorders: No Hx Family Respiratory Disorders: Yes (Emphysema) Hx Family Cancer: Yes (Lung) Hx Family GI Disorders: No Hx Family Endocrine Disorder: No Hx Family Neuromuscular Disorders: No Hx Family Neurologic Disorders: No Hx Family HEENT Disorders: No Hx Family Autoimmune Disorders: No Medications and Allergies Furosemide [Lasix] 40 mg PO BID #0 01/17/15 [History] Potassium Chloride [K-Tab ER] 20 meq PO BID #0 01/17/15 [History] Albuterol Sulfate [Albuterol Inhaler] 2 puff IH Q6HR PRN 01/18/15 [History] Budesonide/Formoterol 160/4.5 [Symbicort] 2 puff IH BIDR 01/18/15 [History] Ipratropium/Albuterol Neb [Duoneb] 3 ml IH Q4H PRN 01/18/15 [History] Spironolactone [Aldactone] 12.5 mg PO DAILY 01/18/15 [History] Carvedilol [Coreg] 12.5 mg PO BID 06/07/16 [History] Cholecalciferol (D-3) [Vitamin D] 1,000 unit PO BID 06/07/16 [History] Oxygen 2 l NS AD 06/16/16 [History] LORazepam [Ativan] 0.5 mg PO DAILY 07/01/16 [History] Magic Mouthwash 10 ml PO QID PRN 07/01/16 [History] Omeprazole [PriLOSEC] 20 mg PO DAILY 07/01/16 [History] Ondansetron HCl [Zofran] 4 mg PO Q6H PRN 07/01/16 [History] Prochlorperazine Maleate [Compazine] 10 mg PO Q6H PRN 07/01/16 [History] Atorvastatin [Lipitor] 40 mg PO HS #30 tablet 07/08/16 [Rx] Amiodarone [Cordarone] 400 mg PO DAILY 07/30/16 [History] Allergies lactose Allergy (Verified 07/31/16 00:37) Diarrhea codeine Adverse Reaction (Verified 07/01/16 19:08) Nausea Oncology - Exam - Constitutional Vitals: Temp Pulse Resp BP Pulse Ox 97.6 F 70 16 99/63 95 07/31/16 15:16 07/31/16 15:16 07/31/16 15:16 07/31/16 15:16 07/31/16 15:16 Oncology - Results - Labs Labs: Short CBC 07/31/16 Range/Units 02:14 WBC 0.4 L* D (4.3-11.1) K/mcL Hgb 10.3 L D (12.9-16.9) g/dL Hct 31.0 L (37.5-50.1) % Plt Count 64 L (140-400) K/mcL Neutrophils # 0.3 L (1.6-8.9) K/mcL BMP 07/31/16 02:14 Sodium 138 Potassium 3.8 Chloride 103 Carbon Dioxide 30 H BUN 25 Creatinine 0.69 L Glucose 101 H Calcium 8.1 L Liver Function 07/31/16 Range/Units 02:14 Total Bilirubin 0.6 (0.2-1.2) mg/dL AST 13 (5-34) Units/L ALT 17 (0-55) Units/L Alkaline Phosphatase 43 (38-126) Units/L Albumin 2.3 L D (3.5-5.0) g/dL Urine 07/30/16 Range/Units 17:20 Urine Color Yellow (Yellow) Urine Clarity Clear (Clear) Urine pH 6.0 (5.0-8.0) pH Units Ur Specific [place] 1.026 H (1.010-1.025) Urine Protein Trace (Neg-Trace) mg/dL Urine Glucose (UA) Normal (Normal) mg/dL Consult Discharge Plan - Plan [facility]errals: [facility] [Primary Care Provider] -
[2016-08-01] MEDS: Doxycycline 100 MG CAPSULE PO SCH ×3 (00:12→21:05)
[2016-08-01] MEDS: Ringers Solution, Lactated 1,000 ML IVC SCH (02:18)
[2016-08-01] MEDS: Ipratropium/Albuterol Neb 3 ML IH SCH ×5 (03:51→21:07)
[2016-08-01] MEDS: *HR* Promethazine 25 MG/ML VIAL IVP PRN ×2 (06:15→21:04)
[2016-08-01] MEDS: Budesonide/Formoterol 160/4.5 MDI IH SCH ×2 (08:00→21:07)
[2016-08-01] MEDS: *HR* LORazepam 0.5 MG TABLET PO SCH (08:21)
[2016-08-01] MEDS: *HR* Amiodarone 200 MG TABLET PO SCH (08:21)
[2016-08-01] MEDS: predniSONE 20 MG TABLET PO SCH (08:21)
[2016-08-01] MEDS: Pantoprazole 40 MG VIAL IVP SCH (08:22)
--- NOTE | 2016-08-01 08:39 | Electrocardiograph Report ---
[facility] Test Date: 2016-07-30 Pat Name: Isai Latif Department: 105 Room: 2A38 Gender: M Education Faculty Member: : 1945 Requested By: Tonya Kenyon Order Number: [id number] Reading MD: Delfin Sarah MD Measurements Intervals [place] Rate: 69 P: 252 [place]: 164 QRS: 126 QRSD: 167 T: 62 QT: 468 QTc: 488 Interpretive Statements ELECTRONIC ATRIAL PACEMAKER ELECTRONIC VENTRICULAR PACEMAKER ABNORMAL RHYTHM ECG Electronically Signed On 08-01-2016 8:37:48 EDT by Delfin Sarah MD
[2016-08-01 08:50] LABS: BUN/Creatinine Ratio 27 (6-26); Blood Urea Nitrogen 18 mg/dL (8-26); Calcium 8.2 mg/dL (8.6-10.8); Carbon Dioxide 28 mEq/L (19-29); Chloride 101 mEq/L (98-109); Glucose 100 mg/dL (70-99); Osmolality,Calculated 286 (280-300); Sodium 137 mEq/L (136-145); eGFR For African Americans > 60 (> 60); eGFR For Non-African Americans > 60 (> 60)
[2016-08-01 08:57] LABS: Potassium 4.6 mEq/L (3.5-4.5)
[2016-08-01 09:41] LABS: Basophils % 2.6 %; Eosinophils % 5.1 %; Hematocrit 33.1 % (37.5-50.1); Immature Platelets 6.4 % (1.1-6.1); Lymphocytes # 0.1 K/mcL (0.6-4.6); Lymphocytes % 17.9 %; Mean Corpuscular HGB Conc 33.2 g/dL (31.6-35.5); Mean Corpuscular Hemoglobin 31.3 pg (28.0-33.3); Mean Platelet Volume 11.5 fL (9.4-12.4); Monocytes % 5.1 %; Neutrophils # 0.3 K/mcL (1.6-8.9); Red Blood Count 3.52 M/mcL (4.19-5.50); Red Cell Distribution Width 13.7 % (11.5-14.5); Segmented Neutrophils % 69.3 %
[2016-08-01 09:49] LABS: Platelet Count 59 K/mcL (140-400)
[2016-08-01 10:09] LABS: Platelet Estimate Decreased (Normal)
[2016-08-01] MEDS: *HR* HYDROmorphone (PF) 1 MG/ML SYRINGE IVP PRN ×2 (11:37→21:15)
--- NOTE | 2016-08-01 13:32 | Internal Med Progress Note ---
Date of Encounter: 08/01/16 Time of Encounter: 12:00 - Assessment and plan (1) COPD (chronic obstructive pulmonary disease) Current Visit: Yes Status: Acute Assessment and plan: Continue current management with O2 supplementation, prednisone, bronchodilators and antibiotics. Moderate risk for complications. Qualifiers: COPD type: chronic bronchitis Chronic bronchitis type: simple Qualified Code(s): J41.0 - Simple chronic bronchitis (2) Pancytopenia Current Visit: Yes Status: Acute Assessment and plan: Remains pancytopenic. Oncology hematology input appreciated. Discussed neutropenia and they recommended giving a dose of Neupogen again today. (3) Bronchitis Current Visit: Yes Status: Acute Assessment and plan: Treating with doxycycline (4) CHF (congestive heart failure) Current Visit: Yes Status: Chronic Assessment and plan: Holding diuretics due to dehydration. May resume after discharge Qualifiers: Congestive heart failure type: systolic Congestive heart failure chronicity : chronic Qualified Code(s): I50.22 - Chronic systolic (congestive) heart failure (5) Dizziness Current Visit: Yes Status: Acute Assessment and plan: From dehydration. Continue gentle IV hydration. Patient is feeling better now , although still remains weak. Continue physical therapy (6) DVT prophylaxis Current Visit: No Status: Acute (7) Generalized weakness Current Visit: Yes Status: Acute Assessment and plan: Physical therapy consulted. They recommended discharge home, however patient does not feel safe going home where he lives alone. mud jack nozzle worker has been consulted and working on safe discharge plan for the patient. (8) Tick bite Current Visit: Yes Status: Acute Assessment and plan: Negative Lyme antibody. 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 Denies any chest pain. Feels weak and tired. No fever reported overnight. No nausea or vomiting. - Constitutional Vitals: Temp Pulse Resp BP Pulse Ox 97.7 F 80 15 93/56 92 08/01/16 11:33 08/01/16 11:33 08/01/16 11:33 08/01/16 11:33 08/01/16 12:55 General appearance: Present: cooperative, mild distress, A&O X 3, pleasant, underweight, loss of weight, answers questions appropriately - Neck Neck exam general surgery: Present: supple, trachea midline. Absent: lymphadenopathy - Respiratory Respiratory exam: Present: decreased breath sounds (Decreased air entry bilaterally), prolonged expiratory phase, rhonchi. Absent: accessory muscle use , rales, wheezes - Cardiovascular Cardiovascular exam: Present: RRR, +S1, +S2. Absent: diastolic murmur, gallop, rubs, systolic murmur - GI/Abdominal GI/Abdominal exam: Present: normal bowel sounds, soft, no peritoneal signs. Absent: distended, tenderness - Extremities Exam Extremities exam: Present: warm, radial pulses palpable and symetrical. Absent : calf tenderness, cyanotic, pedal edema - Neurological Exam Neurological exam: Present: alert, oriented X3, no focal deficits. Absent: facial droop, speech deficit Internal Medicine: Result - Labs CBC & Chem 7: 08/01/16 09:29 08/01/16 08:20 Labs: Short CBC 08/01/16 Range/Units 09:29 WBC 0.4 L* (4.3-11.1) K/mcL Hgb 11.0 L (12.9-16.9) g/dL Hct 33.1 L (37.5-50.1) % Plt Count 59 L (140-400) K/mcL Neutrophils # 0.3 L (1.6-8.9) K/mcL BMP 08/01/16 08:20 Sodium 137 Potassium 4.6 H Chloride 101 Carbon Dioxide 28 BUN 18 Creatinine 0.67 L Glucose 100 H Calcium 8.2 L - ABG Interpretation ABG results: PT/INR, D-dimer PT 10.9 Seconds (9.4-12.1) 07/31/16 02:14 - VTE Documentation of Mechanical Device: Intermittent pneumatic compression device Consult Discharge Plan - Plan [facility]errals: [facility] [Primary Care Provider[facility] - - Attending Attestation This document has been at least partially created by [employer] recognition technology by Dr. Lunsford. Errors in grammar, wording or other phrases may exist. If errors are found after the documentation is signed, they will be addressed individually in the addendum section of this document when appropriate.
[2016-08-02] MEDS: Ipratropium/Albuterol Neb 3 ML IH SCH ×7 (00:22→23:11)
[2016-08-02] MEDS: *HR* HYDROmorphone (PF) 1 MG/ML SYRINGE IVP PRN (03:14)
[2016-08-02] MEDS: *HR* Promethazine 25 MG/ML VIAL IVP PRN (03:14)
[2016-08-02 03:43] LABS: Basophils % 2.9 %; Eosinophils % 2.9 %; Hematocrit 37.6 % (37.5-50.1); Hemoglobin 12.3 g/dL (12.9-16.9); Lymphocytes % 11.4 %; Mean Corpuscular HGB Conc 32.7 g/dL (31.6-35.5); Mean Corpuscular Hemoglobin 30.9 pg (28.0-33.3); Mean Corpuscular Volume 94.5 fL (83.0-100.0); Mean Platelet Volume 11.7 fL (9.4-12.4); Monocytes % 5.7 %; Neutrophils # 0.3 K/mcL (1.6-8.9); Red Blood Count 3.98 M/mcL (4.19-5.50); Red Cell Distribution Width 13.5 % (11.5-14.5); Segmented Neutrophils % 77.1 %
[2016-08-02 04:14] LABS: Lymphocytes # 0.1 K/mcL (0.6-4.6); Platelet Count 74 K/mcL (140-400)
[2016-08-02 04:18] LABS: Platelet Estimate Decreased (Normal)
[2016-08-02] MEDS: Budesonide/Formoterol 160/4.5 MDI IH SCH ×2 (07:41→20:14)
[2016-08-02] MEDS: Doxycycline 100 MG CAPSULE PO SCH ×2 (10:23→20:02)
[2016-08-02] MEDS: Pantoprazole 40 MG VIAL IVP SCH ×2 (10:23→11:39)
[2016-08-02] MEDS: predniSONE 20 MG TABLET PO SCH (10:23)
[2016-08-02] MEDS: *HR* Amiodarone 200 MG TABLET PO SCH (10:23)
[2016-08-02] MEDS: *HR* LORazepam 0.5 MG TABLET PO SCH (10:23)
[2016-08-02] MEDS ORDERED: *HR* OxyCODONE/APAP 10/325 TABLET PO PRN (11:20)
[2016-08-02] MEDS: *HR* HYDROcodone/Acet 5/325 mg TABLET PO PRN (11:54)
--- NOTE | 2016-08-02 16:06 | Discharge Summary ---
Date of Encounter: 08/02/16 Time of Encounter: 10:15 - Discharge Diagnosis (1) COPD (chronic obstructive pulmonary disease) Priority: Primary Status: Acute Qualifiers: COPD type: chronic bronchitis Chronic bronchitis type: simple Qualified Code(s): J41.0 - Simple chronic bronchitis (2) Pancytopenia Priority: Secondary Status: Acute (3) Bronchitis Priority: Secondary Status: Acute (4) CHF (congestive heart failure) Priority: Secondary Status: Chronic Qualifiers: Congestive heart failure type: systolic Congestive heart failure chronicity : chronic Qualified Code(s): I50.22 - Chronic systolic (congestive) heart failure (5) Dizziness Priority: Secondary Status: Acute (6) DVT prophylaxis Priority: Secondary Status: Acute (7) Generalized weakness Priority: Secondary Status: Acute (8) Tick bite Priority: Secondary Status: Acute Qualifiers: Encounter type: initial encounter Qualified Code(s): W57.XXXA - Bitten or stung by nonvenomous insect and other nonvenomous arthropods, initial encounter (9) GE junction carcinoma Priority: Secondary Status: Chronic (10) Severe protein-calorie malnutrition Priority: Secondary Status: Chronic Comments: Due to cancer and chemotherapy - Discharge Medications Prescriptions: Doxycycline 100 mg PO BID #10 capsule predniSONE [PredniSONE] 10 mg PO DAILY 6 Days Home Medications: Furosemide [Lasix] 40 mg PO BID #0 01/17/15 [History] Potassium Chloride [K-Tab ER] 20 meq PO BID #0 01/17/15 [History] Albuterol Sulfate [Albuterol Inhaler] 2 puff IH Q6HR PRN 01/18/15 [History] Budesonide/Formoterol 160/4.5 [Symbicort] 2 puff IH BIDR 01/18/15 [History] Ipratropium/Albuterol Neb [Duoneb] 3 ml IH Q4H PRN 01/18/15 [History] Spironolactone [Aldactone] 12.5 mg PO DAILY 01/18/15 [History] Carvedilol [Coreg] 12.5 mg PO BID 06/07/16 [History] Cholecalciferol (D-3) [Vitamin D] 1,000 unit PO BID 06/07/16 [History] Oxygen 2 l NS AD 06/16/16 [History] LORazepam [Ativan] 0.5 mg PO DAILY 07/01/16 [History] Magic Mouthwash 10 ml PO QID PRN 07/01/16 [History] Omeprazole [PriLOSEC] 20 mg PO DAILY 07/01/16 [History] Ondansetron HCl [Zofran] 4 mg PO Q6H PRN 07/01/16 [History] Prochlorperazine Maleate [Compazine] 10 mg PO Q6H PRN 07/01/16 [History] Atorvastatin [Lipitor] 40 mg PO HS #30 tablet 07/08/16 [Rx] Amiodarone [Cordarone] 400 mg PO DAILY 07/30/16 [History] Doxycycline 100 mg PO BID #10 capsule 08/02/16 [Rx] predniSONE [PredniSONE] 10 mg PO DAILY 6 Days 08/02/16 [Rx] Allergies/Adverse Reactions: Allergies lactose Allergy (Verified 07/31/16 00:37) Diarrhea codeine Adverse Reaction (Verified 07/01/16 19:08) Nausea Date of admission: 07/30/16 12:39 [facility] Consults: 07/30/16 13:04 Consult to Occupational Therapy [CONS] Routine Comment: Evaluate, develop and implement POC Reason for Consult: Patient has generalized weakness and lives alone. Immunocompromised due to chemo/radiation tx Consult to Physical Therapy [CONS] Routine Comment: Evaluate, develop and implement POC Reason for Consult: Patient has generalized weakness and lives alone. Immunocompromised due to chemo/radiation tx 07/30/16 13:05 Consult to Tax Agent [CONS] Routine Reason for SW Consult: Assess patient for home needs (uses home O2) 07/31/16 11:47 Consult to Oncology Hematology [CONS] Routine Consulting Provider: Kailash Avery Reason for Consult: Pancytopenia post chemo/ radiation Time Notified: 11:48 Call Completed: Yes Discharging clinician: Vianey Lunsford Anticipated date of discharge: 08/03/16 - Patient Status Disposition: Transfer SNF Condition: Fair Functional capacity at discharge: uses cane/walker Overall status at discharge: patient is progressing back to baseline - Discharge Instructions Instructions: Chronic Obstructive Pulmonary Disease (DC), Anemia (GEN) Follow Up With: [facility] [Primary Care Provider] - (Follow-up in 1-2 weeks) Additional Instructions: Follow-up with oncologist as scheduled - Diet and Activity Activity: as per physical therapy Diet: advance to your usual diet Hospital course: Mr. 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 He was found to be leukopenic and pancytopenic with neutropenia but did not have any fever. He also recently had a tick bite. He was started on treatment for acute exacerbation of COPD with acute bronchitis with steroids, bronchodilators and doxycycline. He also received Neupogen and IV fluids. Physical therapy was consulted. Patient was tested for Lyme disease and his antibody was negative. He did receive doxycycline. He has remained pancytopenic although his hemoglobin and platelet counts are improving. Hematology oncology was consulted. They recommended outpatient follow-up for further management of his cancer. The patient feels weak and is unsure of her being able to take care of himself at home as he lives alone. As such social worker clinical [facility] to a [facility] for physical therapy. He will be discharged once this has been arranged on a steroid taper and doxycycline to complete treatment course for his bronchitis/COPD exacerbation. He does not require further doses of Neupogen per hematology as is not having any fever. - Time Spent with Patient Total time spent providing and/or coordinating discharge services: Greater than 30 minutes (40 min) - Constitutional Vitals: Temp Pulse Resp BP Pulse Ox 98.2 F 80 20 90/55 93 08/02/16 11:33 08/02/16 11:33 08/02/16 11:52 08/02/16 11:33 08/02/16 11:52 General appearance: Present: cooperative, mild distress, A&O X 3, pleasant, underweight, loss of weight, answers questions appropriately - Neck Neck exam general surgery: Present: supple, trachea midline. Absent: lymphadenopathy - Respiratory Respiratory exam: Present: prolonged expiratory phase, rhonchi. Absent: accessory muscle use, rales, wheezes - Cardiovascular Cardiovascular exam: Present: RRR, +S1, +S2. Absent: diastolic murmur, gallop, rubs, systolic murmur - GI/Abdominal GI/Abdominal exam: Present: normal bowel sounds, soft, no peritoneal signs. Absent: distended, tenderness - Extremities Exam Extremities exam: Present: warm, radial pulses palpable and symetrical. Absent : calf tenderness, cyanotic, pedal edema - VTE Documentation of Mechanical Device: Intermittent pneumatic compression device - Attending Attestation This document has been at least partially created by [employer] recognition technology by Dr. Lunsford. Errors in grammar, wording or other phrases may exist. If errors are found after the documentation is signed, they will be addressed individually in the addendum section of this document when appropriate.
--- NOTE | 2016-08-02 16:18 | Physician Discharge Referral ---
ExtendedCare Referral Info Transfer To: [facility] Provider in Charge after Transfer: PCP Institutional Level of Care: Skilled - Diagnosis (1) COPD (chronic obstructive pulmonary disease) Priority: Primary Status: Acute (2) Pancytopenia Priority: Secondary Status: Acute (3) Bronchitis Priority: Secondary Status: Acute (4) CHF (congestive heart failure) Priority: Secondary Status: Chronic (5) Dizziness Priority: Secondary Status: Acute (6) DVT prophylaxis Priority: Secondary Status: Acute (7) Generalized weakness Priority: Secondary Status: Acute (8) Tick bite Priority: Secondary Status: Acute (9) GE junction carcinoma Priority: Secondary Status: Chronic (10) Severe protein-calorie malnutrition Priority: Secondary Status: Chronic Prognosis: Fair Aware of Diagnosis: Patient Aware of Prognosis: Patient - Transfer Medications Prescriptions: Doxycycline 100 mg PO BID #10 capsule predniSONE [PredniSONE] 10 mg PO DAILY 6 Days Home Medications: Furosemide [Lasix] 40 mg PO BID #0 01/17/15 [History] Potassium Chloride [K-Tab ER] 20 meq PO BID #0 01/17/15 [History] Albuterol Sulfate [Albuterol Inhaler] 2 puff IH Q6HR PRN 01/18/15 [History] Budesonide/Formoterol 160/4.5 [Symbicort] 2 puff IH BIDR 01/18/15 [History] Ipratropium/Albuterol Neb [Duoneb] 3 ml IH Q4H PRN 01/18/15 [History] Spironolactone [Aldactone] 12.5 mg PO DAILY 01/18/15 [History] Carvedilol [Coreg] 12.5 mg PO BID 06/07/16 [History] Cholecalciferol (D-3) [Vitamin D] 1,000 unit PO BID 06/07/16 [History] Oxygen 2 l NS AD 06/16/16 [History] LORazepam [Ativan] 0.5 mg PO DAILY 07/01/16 [History] Magic Mouthwash 10 ml PO QID PRN 07/01/16 [History] Omeprazole [PriLOSEC] 20 mg PO DAILY 07/01/16 [History] Ondansetron HCl [Zofran] 4 mg PO Q6H PRN 07/01/16 [History] Prochlorperazine Maleate [Compazine] 10 mg PO Q6H PRN 07/01/16 [History] Atorvastatin [Lipitor] 40 mg PO HS #30 tablet 07/08/16 [Rx] Amiodarone [Cordarone] 400 mg PO DAILY 07/30/16 [History] Doxycycline 100 mg PO BID #10 capsule 08/02/16 [Rx] predniSONE [PredniSONE] 10 mg PO DAILY 6 Days 08/02/16 [Rx] Allergies/Adverse Reactions: Allergies lactose Allergy (Verified 07/31/16 00:37) Diarrhea codeine Adverse Reaction (Verified 07/01/16 19:08) Nausea - Respiratory Orders Oxygen / L per min (2) Smoking Cessation: Smoking cessation has been advised. For more information, call the [place] Tobacco Quit Line at 2-920-NKGB-NOW. - Ancillary Orders May consult with Dentist, Mouthpiece Maker, Instrumentation Manager PRN - Advance Directives Code Status: Full Code - Mobility Orders Ambulate - Rehabiliation Orders Rehab Potential: Good Rehab Orders: Evaluation for Physical Therapy, Evaluation for Occupational Therapy - Diet Orders Cardiac CERTIFICATION: I certify that the transfer of the above named patient to an Extended Care Facility is necessary for the continuing treatment of the diagnosis listed. The above information is true and accurate reflection of patient's current condition. Confidential - Redisclosure prohibited without a patient's written consent.
[2016-08-02] MEDS: Acetylcysteine 10% 2 ML INHSOL IH SCH (23:09)
[2016-08-03] MEDS: Ipratropium/Albuterol Neb 3 ML IH SCH ×3 (03:44→11:00)
[2016-08-03] MEDS: Acetylcysteine 10% 2 ML INHSOL IH SCH ×3 (03:45→11:00)
[2016-08-03] MEDS ORDERED: Ondansetron ODT 4 MG TAB.RAPDIS PO PRN (03:46)
[2016-08-03] MEDS: Budesonide/Formoterol 160/4.5 MDI IH SCH (07:48)
[2016-08-03] MEDS: predniSONE 20 MG TABLET PO SCH (07:57)
[2016-08-03] MEDS: *HR* LORazepam 0.5 MG TABLET PO SCH (07:58)
[2016-08-03] MEDS: Doxycycline 100 MG CAPSULE PO SCH (07:58)
[2016-08-03] MEDS: *HR* Amiodarone 200 MG TABLET PO SCH (07:58)
[2016-08-03 08:15] LABS: Anaplasma phagocytophilum IgG <1:80 (<1:80); Anaplasma phagocytophilum IgM < 1:16 (< 1:16)
[2016-08-03] MEDS: *HR* HYDROcodone/Acet 5/325 mg TABLET PO PRN (09:35)
[2016-08-03 10:33] VITALS: BP 92/58
--- NOTE | 2016-08-03 14:03 | Internal Med Progress Note ---
Date of Encounter: 08/03/16 Time of Encounter: 12:50 - Assessment and plan (1) COPD (chronic obstructive pulmonary disease) Status: Acute Assessment and plan: Patient was admitted for acute exacerbation of COPD and has been treated with IV steroids, bronchodilators and supplemental oxygen. He is doing well today and has been awaiting placement at the [facility] rehabilitation since yesterday. He is medically stable for discharge today with oral steroids. Qualifiers: COPD type: chronic bronchitis Chronic bronchitis type: simple Qualified Code(s): J41.0 - Simple chronic bronchitis (2) Neutropenia Status: Chronic Assessment and plan: Probably related to chemotherapy. Patient has been seen by oncology, received Neupogen, do not recommend further doses; blood counts are currently improving and stable. 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 (3) Generalized weakness Status: Chronic (4) Esophageal cancer Status: Chronic Qualifiers: Malignant neoplasm of esophagus location: unspecified location Qualified Code(s): C15.9 - Malignant neoplasm of esophagus, unspecified (5) Severe protein-calorie malnutrition Status: Chronic - Subjective Interval history: Feels weak and tired; decreased appetite; awaiting rehab placement at [place]; - Constitutional Vitals: Temp Pulse Resp BP Pulse Ox 97.9 F 83 16 92/58 90 08/03/16 10:32 08/03/16 10:32 08/03/16 11:02 08/03/16 10:32 08/03/16 11:02 General appearance: Present: cachectic, A&O X 3, underweight, answers questions appropriately - Respiratory Respiratory exam: Present: CTAB. Absent: accessory muscle use, rales, rhonchi, wheezes - Cardiovascular Cardiovascular exam: Present: RRR, +S1, +S2. Absent: diastolic murmur, gallop, rubs, systolic murmur Internal Medicine: Result - Labs CBC & Chem 7: 08/02/16 02:54 08/01/16 08:20 - ABG Interpretation ABG results: PT/INR, D-dimer PT 10.9 Seconds (9.4-12.1) 07/31/16 02:14 - VTE Documentation of Mechanical Device: Intermittent pneumatic compression device Consult Discharge Plan - Plan Instructions: Chronic Obstructive Pulmonary Disease (DC), Anemia (GEN) Additional Instructions: Follow-up with oncologist as scheduled [facility]errals: [facility] [Primary Care Provider] - (Follow-up in 1-2 weeks) Prescriptions: predniSONE [PredniSONE] 10 mg PO DAILY 6 Days
== END 2016-08-03 13:06 | DRG 190 ==
LOC: 2ANU 09:33 → EMEROO 09:33 → 2ANU 13:24 → SUATTDRO 08-02 16:08
PROVIDERS: ADMIT Internal Medicine; ATTEND Internal Medicine